=== PATIENT | female | born 1935 | race Caucasian/White ===

== ENCOUNTER 2018-10-16 08:35 | Observation (INO) | payer MEDICARE ==
--- NOTE | 2018-10-16 09:20 | ED ---
General Adult HPI - General Chief complaint: Shortness of Breath Stated complaint: Lung infection Time Seen by Provider: 10/16/18 08:45 Source: patient, RN notes reviewed Mode of arrival: ambulatory Limitations: no limitations - History of Present Illness Initial comments: This is an 83-year-old female presents emergency Department complaining of difficulty breathing since April. Patient states she lives in [place] and can't get any testing done because she has no insurance there. Patient states she came here today to see if we can figure out what was going on with her. Patient states she does not have a primary medical care doctor. Patient states his shortness of breath is worse with exertion. Patient states she has been having some chest pain lately as well. Patient states it doesn't always happen but takes for at least 30 seconds to come to recuperate when this occurs. Patient states she does get some chest squeezing at times when this happens. Patient denies any lightheadedness or dizziness. Patient denies any swelling in her feet or calf tenderness. Patient denies any recent fever chills or cough. Patient states she's recently been on 2 different antibiotics over the last few months. - Related Data Home Medications Medication Instructions Recorded Confirmed Salbutamol 100mcg 1 - 2 puff INHALATION RT-DAILY PRN 10/16/18 10/16/18 Allergies Allergy/AdvReac Type Severity Reaction Status Date / Time meperidine [From Demerol] Allergy Vomiting Verified 10/16/18 09:21 omeprazole Allergy Nausea & Verified 10/16/18 09:21 Vomiting oxycodone Allergy Vomiting Verified 10/16/18 09:21 Review of Systems ROS Statement: Those systems with pertinent positive or pertinent negative responses have been documented in the HPI. ROS Other: All systems not noted in ROS Statement are negative. Past Medical History Past Medical History: Atrial Fibrillation, Hypertension History of Any Multi-Drug Resistant Organisms: None Reported Past Surgical History: Back Surgery, Hernia Repair, Hysterectomy, Orthopedic Surgery Additional Past Surgical History / Comment(s): Eye Past Psychological History: No Psychological Hx Reported Smoking Status: Never smoker Past Alcohol Use History: None Reported Past Drug Use History: None Reported General Exam - General Exam Comments Initial Comments: GENERAL: Patient is well-developed and well-nourished. Patient is nontoxic and well- hydrated and is in no acute distress. ENT: Neck is soft and supple. No significant lymphadenopathy is noted. Oropharynx is clear. Moist mucous membranes. Neck has full range of motion without eliciting any pain. EYES: The sclera were anicteric and conjunctiva were pink and moist. Extraocular movements were intact and pupils were equal round and reactive to light. Eyelids were unremarkable. PULMONARY: Unlabored respirations. Good breath sounds bilaterally. No audible rales rhonchi or wheezing was noted. CARDIOVASCULAR: There is a regular rate and rhythm without any murmurs gallops or rubs. ABDOMEN: Soft and nontender with normal bowel sounds. No palpable organomegaly was noted. There is no palpable pulsatile mass. SKIN: Skin is clear with no lesions or rashes and otherwise unremarkable. NEUROLOGIC: Patient is alert and oriented x3. Cranial nerves II through XII are grossly intact. Motor and sensory are also intact. Normal speech, volume and content. Symmetrical smile. MUSCULOSKELETAL: Normal extremities with adequate strength and full range of motion. No lower extremity swelling or edema. No calf tenderness. LYMPHATICS: No significant lymphadenopathy is noted PSYCHIATRIC: Normal psychiatric evaluation. Limitations: no limitations Course Vital Signs 10/16/18 10/16/18 10/16/18 08:46 09:30 10:00 Temperature 97.9 F Pulse Rate 82 64 64 Respiratory 20 20 22 Rate Blood Pressure 143/73 148/69 154/72 O2 Sat by Pulse 96 94 L 96 Oximetry 10/16/18 10/16/18 10/16/18 10:30 11:00 11:30 Temperature Pulse Rate 54 L 59 L Respiratory 18 16 Rate Blood Pressure 138/63 131/66 127/64 O2 Sat by Pulse 94 L 94 L Oximetry Medical Decision Making - Medical Decision Making EKG shows sinus rhythm at [address] interval is 270 QRS 76 QT interval 418 QTC is 438. Patient's EKG shows no ST segment elevation or depression or T wave abnormalities are noted. Chest x-ray shows a large retail hernia. CT of the chest also shows an extremely large hiatal hernia no pulmonary embolism noted I spoke with some physicians a agreed to admit the patient admitted the patient wrote admitting orders and consult cardiology - Lab Data Result diagrams: 10/16/18 09:07 10/16/18 09:07 Lab Results 10/16/18 10/16/18 10/16/18 Range/Units 09:07 09:07 09:07 WBC 7.7 (3.8-10.6) k/uL RBC 5.03 (3.80-5.40) m/uL Hgb 14.4 (11.4-16.0) gm/dL Hct 44.7 (34.0-46.0) % MCV 88.9 (80.0-100.0) fL MCH 28.6 (25.0-35.0) pg MCHC 32.1 (31.0-37.0) g/dL RDW 14.4 (11.5-15.5) % Plt Count 266 (150-450) k/uL Neutrophils % 57 % Lymphocytes % 27 % Monocytes % 7 % Eosinophils % 5 % Basophils % 1 % Neutrophils # 4.4 (1.3-7.7) k/uL Lymphocytes # 2.1 (1.0-4.8) k/uL Monocytes # 0.6 (0-1.0) k/uL Eosinophils # 0.4 (0-0.7) k/uL Basophils # 0.1 (0-0.2) k/uL PT 11.1 (9.0-12.0) sec INR 1.1 (<1.2) APTT 24.8 (22.0-30.0) sec D-Dimer 1.11 H (<0.60) mg/L FEU Sodium 143 (137-145) mmol/L Potassium 4.5 (3.5-5.1) mmol/L Chloride 111 H (98-107) mmol/L Carbon Dioxide 25 (22-30) mmol/L Anion Gap 7 mmol/L BUN 17 (7-17) mg/dL Creatinine 0.62 (0.52-1.04) mg/dL Est GFR (CKD-EPI)AfAm >90 (>60 ml/min/1.73 sqM) Est GFR (CKD-EPI)NonAf 84 (>60 ml/min/1.73 sqM) Glucose 85 (74-99) mg/dL Calcium 9.5 (8.4-10.2) mg/dL Magnesium 1.9 (1.6-2.3) mg/dL Total Bilirubin 0.8 (0.2-1.3) mg/dL AST 30 (14-36) U/L ALT 16 (9-52) U/L Alkaline Phosphatase 76 (38-126) U/L Troponin I (0.000-0.034) ng/mL NT-Pro-B Natriuret Pep pg/mL Total Protein 6.8 (6.3-8.2) g/dL Albumin 3.8 (3.5-5.0) g/dL 10/16/18 10/16/18 Range/Units 09:07 09:07 WBC (3.8-10.6) k/uL RBC (3.80-5.40) m/uL Hgb (11.4-16.0) gm/dL Hct (34.0-46.0) % MCV (80.0-100.0) fL MCH (25.0-35.0) pg MCHC (31.0-37.0) g/dL RDW (11.5-15.5) % Plt Count (150-450) k/uL Neutrophils % % Lymphocytes % % Monocytes % % Eosinophils % % Basophils % % Neutrophils # (1.3-7.7) k/uL Lymphocytes # (1.0-4.8) k/uL Monocytes # (0-1.0) k/uL Eosinophils # (0-0.7) k/uL Basophils # (0-0.2) k/uL PT (9.0-12.0) sec INR (<1.2) APTT (22.0-30.0) sec D-Dimer (<0.60) mg/L FEU Sodium (137-145) mmol/L Potassium (3.5-5.1) mmol/L Chloride (98-107) mmol/L Carbon Dioxide (22-30) mmol/L Anion Gap mmol/L BUN (7-17) mg/dL Creatinine (0.52-1.04) mg/dL Est GFR (CKD-EPI)AfAm (>60 ml/min/1.73 sqM) Est GFR (CKD-EPI)NonAf (>60 ml/min/1.73 sqM) Glucose (74-99) mg/dL Calcium (8.4-10.2) mg/dL Magnesium (1.6-2.3) mg/dL Total Bilirubin (0.2-1.3) mg/dL AST (14-36) U/L ALT (9-52) U/L Alkaline Phosphatase (38-126) U/L Troponin I <0.012 (0.000-0.034) ng/mL NT-Pro-B Natriuret Pep 802 pg/mL Total Protein (6.3-8.2) g/dL Albumin (3.5-5.0) g/dL Disposition Clinical Impression: Chest pain, Dyspnea, Hiatal hernia Disposition: ADMITTED IP TO THIS [facility] Time of Disposition: 12:40
[2018-10-16] MEDS ORDERED: ASPIRIN 81 MG PO STA (09:31)
[2018-10-16] MEDS ORDERED: NITROGLYCERIN OINT 1 INCH/GM PACKET TOPICAL STA (09:31)
[2018-10-16 09:40] LABS: Basophils # (A) 0.1 k/uL (0-0.2); Basophils % (A) 1 %; Eosinophils # (A) 0.4 k/uL (0-0.7); Eosinophils % (A) 5 %; HCT 44.7 % (34.0-46.0); HGB 14.4 gm/dL (11.4-16.0); Lymphocytes # (A) 2.1 k/uL (1.0-4.8); Lymphocytes % (A) 27 %; MCH 28.6 pg (25.0-35.0); MCHC 32.1 g/dL (31.0-37.0); MCV 88.9 fL (80.0-100.0); Mean Platelet Volume 7.8; Monocytes # (A) 0.6 k/uL (0-1.0); Monocytes % (A) 7 %; Neutrophils # (A) 4.4 k/uL (1.3-7.7); Neutrophils % (A) 57 %; Platelet Count 266 k/uL (150-450); RBC 5.03 m/uL (3.80-5.40); RDW 14.4 % (11.5-15.5); WBC 7.7 k/uL (3.8-10.6)
[2018-10-16 09:53] LABS: ALT 16 U/L (9-52); AST 30 U/L (14-36); Albumin 3.8 g/dL (3.5-5.0); Alkaline Phosphatase 76 U/L (38-126); Anion Gap 7 mmol/L; Blood Urea Nitrogen 17 mg/dL (7-17); Calcium 9.5 mg/dL (8.4-10.2); Carbon Dioxide 25 mmol/L (22-30); Chloride 111 mmol/L (98-107); Glucose 85 mg/dL (74-99); Magnesium 1.9 mg/dL (1.6-2.3); Potassium 4.5 mmol/L (3.5-5.1); Sodium 143 mmol/L (137-145); Total Bilirubin 0.8 mg/dL (0.2-1.3); Total Protein 6.8 g/dL (6.3-8.2)
--- NOTE | 2018-10-16 09:53 | XR ---
EXAMINATION TYPE: XR chest 2V DATE OF EXAM: 10/16/2018 COMPARISON: None HISTORY: 83-year-old female difficulty breathing, productive cough TECHNIQUE: AP and lateral views FINDINGS: Heart mildly enlarged. Mild diffuse interstitial prominence is chronic. Focal eventration of the left hemidiaphragm extending up to the midlung level. Mild patchy right basilar density. Prior rotator cu ff repair on the right with evidence of a re-tear. Large osseous fragment in the axillary recess jv uring up to 2.5 cm. IMPRESSION: 1. Mild cardiomegaly. 2. Large area of focal eventration involving the left hemidiaphragm reaching up to the mid lung level . 3. Mild interstitial prominence may in part be chronic. Correlate for possible bronchitis or asthma. 4. Mild patchy density at the right base, probably atelectasis.
[2018-10-16 09:55] LABS: INR 1.1 (<1.2); Partial Thromboplastin Time 24.8 sec (22.0-30.0); Prothrombin Time 11.1 sec (9.0-12.0)
[2018-10-16 10:02] LABS: D-Dimer 1.11 mg/L FEU (<0.60)
--- NOTE | 2018-10-16 11:56 | CT ---
EXAMINATION TYPE: CT chest angio for PE DATE OF EXAM: 10/16/2018 COMPARISON: Radiograph same day HISTORY: 83-year-old female Left sided chest pain with shortness of breath TECHNIQUE: Contiguous axial scanning of the chest performed with IV Contrast, patient injected with 1 00 mL of Isovue 300. Coronal/sagittal MIP reconstructions performed. CT DLP: 541.8 mGycm Automated exposure control for dose reduction was used. FINDINGS: Heart normal size without pericardial effusion. No flattening of the interventricular septum or reflu x of contrast into the hepatic veins. Ectatic ascending aorta 3.7 cm with conventional arch vessel branching anatomy. Mildly enlarged caliber to the main right and left pulmonary arteries are 2.6 and 2.5 cm, respectivel y, suggesting possible underlying pulmonary artery hypertension. There are diffuse breathing motion artifacts limiting assessment. No large central or lobar pulmonary embolus is seen. Many of the segmental and more distal arterial branches are very limited due to the motion artifacts. No thoracic lymphadenopathy by CT size criteria. Volume loss at the left base secondary to a very large hiatal hernia containing the entire stomach wh ich demonstrates an organoaxial orientation. No abnormal wall thickening, pneumatosis, or free air. L arge amount of intra-abdominal fat as well as the pancreatic body and tail, splenic artery, and splen ic vein are also included in the hernia. The hernia sac measures up to 18.7 cm wide by 14.7 cm AP by 11.5 cm craniocaudal. Incidentally, there is a replaced right hepatic vein from the SMA. Calcified granulomas in the spleen . Faceted gallstones measuring up to 1.4 cm. Remainder of the lungs shows some minimal strandy atelectasis at the right base. No other consolidati on or pleural effusion. There seems to be some moderate circumferential wall thickening of the distal esophagus. Bones: Advanced degenerative changes of both shoulders. Moderate degenerative disc disease mid to low er thoracic spine. IMPRESSION: 1. VOLUME LOSS AT THE LEFT BASE SECONDARY TO A VERY LARGE HIATAL HERNIA CONTAINING THE ENTIRE STOMACH , INTRA-ABDOMINAL FAT, PORTIONS OF THE PANCREATIC BODY, PANCREATIC TAIL, WELL THE SPLENIC ARTER Y/VEIN. THE HERNIA SAC MEASURES UP TO 18.7 CM. 2. ORGANOAXIAL POSITIONING OF THE STOMACH WITHOUT VOLVULUS OR INFLAMMATORY CHANGES. 3. MODERATE CIRCUMFERENTIAL WALL THICKENING OF THE LOWER ESOPHAGUS COULD REPRESENT ESOPHAGITIS. CORRE LATE WITH PATIENT'S SYMPTOMS TO DETERMINE THE NEED FOR DIRECT VISUALIZATION. 4. POSSIBLE UNDERLYING PULMONARY ARTERIAL HYPERTENSION. ALSO, CHOLELITHIASIS AND PRIOR GRANULOMATOUS DISEASE.
[2018-10-16] MEDS ORDERED: NITROGLYCERIN SL TABS 0.4 MG TAB SUBLINGUAL PRN (12:42)
[2018-10-16 14:26] VITALS: BMI 35.5
[2018-10-16] MEDS ORDERED: NALOXONE 0.4 MG/ML 1 ML VIAL IV PRN (19:19)
[2018-10-16] MEDS ORDERED: HYDROcodone/APAP 5-325MG 1 EACH TAB PO PRN (19:19)
[2018-10-16] MEDS ORDERED: MORPHINE SULFATE 2 MG/ML SYRINGE IV PRN (19:19)
[2018-10-16] MEDS ORDERED: ACETAMINOPHEN TAB 325 MG TAB PO PRN (19:19)
[2018-10-16] MEDS: NITROGLYCERIN OINT 1 INCH/GM PACKET TOPICAL SCH ×2 (19:51→22:07)
--- NOTE | 2018-10-16 20:16 | P.HPIM ---
History of Present Illness H&P Date: 10/16/18 Chief Complaint: Chest pain, shortness of breath 83 year old F with PMH of Atrial fibrillation presents to the ED for chest pain and shortness of breath. Patient reports shortness of breath that has been worsening since May. Patient reports going to the ED in [facility] for chest pain, and she was told that this wasn't related to her heart. Pain is right sided, 7/10 in severity. Pain is described as sharp and stabbing. Patient also reports cough productive of green-yellow sputum that has been ongoing for the past 2 months. She has tried a trial of antibiotics in the outpatient setting, temporarily alleviating her symptoms but her cough has returned. Patient states shortness of breath is worse with changes in position. She denies headache, lower extremity edema, nausea or vomiting, fever or chills, palpitations, changes in urination or bowel habits. Patient also reports history of hiatal hernia, was told it was inoperable in the past. In the ED, Troponin was negative x 2. D Dimer was elevated, CTA ruled out PE. CTA did however reveal a large hiatal hernia involving the entire stomach and parts of her pancreas. Patient is admitted for chest pain, Cardiology on consult. Review of Systems All positive review of systems is seen in the H&P. All other ROS was reviewed and is negative. 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 History of Any Multi-Drug Resistant Organisms: None Reported Past Surgical History: Back Surgery, Hernia Repair, Hysterectomy, Joint Replacement, Orthopedic Surgery Additional Past Surgical History / Comment(s): MAGAN/cardioversion, low back surgery in 1967 and 1968, abdominal hernia repairs (4 surgeried for a total of 7 abdominal hernias), bilateral cataract removal/lens implants, bilateral feet hammer toes (3 of them), R rotator cuff surgery twice and L rotator cuff surgery once, bilateral total knee arthroplasties. Additional Past Anesthesia/Blood Transfusion Reaction / Comment(s): Pt has had hypothermia with surgery. Smoking Status: Never smoker - Past Family History Father Family Medical History: Cancer Additional Family Medical History / Comment(s): Father had prostate/liver cancer. Mother Family Medical History: Dementia Additional Family Medical History / Comment(s): Mother lived to be 94 yrs old. Medications and Allergies Home Medications Medication Instructions Recorded Confirmed Type Salbutamol 100mcg 1 - 2 puff INHALATION RT-DAILY PRN 10/16/18 10/16/18 History Allergies Allergy/AdvReac Type Severity Reaction Status Date / Time meperidine [From Demerol] Allergy Vomiting Verified 10/16/18 09:21 omeprazole Allergy Nausea & Verified 10/16/18 09:21 Vomiting oxycodone Allergy Vomiting Verified 10/16/18 09:21 Physical Exam Vitals: Vital Signs Temp Pulse Resp BP Pulse Ox 10/16/18 18:30 65 19 170/99 93 L 10/16/18 18:00 77 19 162/74 95 10/16/18 17:30 66 16 159/70 94 L 10/16/18 17:00 64 13 147/69 96 10/16/18 16:30 68 16 140/67 10/16/18 16:00 63 18 124/66 94 L 10/16/18 15:30 64 17 132/67 94 L 10/16/18 15:00 65 20 147/73 94 L 10/16/18 14:30 62 16 142/67 95 10/16/18 14:00 61 19 167/68 95 10/16/18 13:30 63 20 148/65 95 10/16/18 13:00 58 L 15 163/78 94 L 10/16/18 12:30 58 L 18 140/67 97 10/16/18 12:00 60 15 127/64 96 10/16/18 11:30 127/64 10/16/18 11:00 59 L 16 131/66 94 L 10/16/18 10:30 54 L 18 138/63 94 L 10/16/18 10:00 64 22 154/72 96 10/16/18 09:30 64 20 148/69 94 L 10/16/18 08:46 97.9 F 82 20 143/73 96 Intake and Output 10/16/18 10/16/18 10/16/18 06:59 14:59 22:59 Other: Weight 99.79 kg General: [non toxic], [no distress], [appears at stated age] Derm: [warm], [dry] Head: [atraumatic], [normocephalic], [symmetric] Eyes: [EOMI], [no lid lag], [anicteric sclera] Mouth: [no lip lesion], [mucus membranes moist] Cardiovascular: [S1S2 reg], [no murmur], [positive DP pulse bilateral] Lungs: [Decreased breath sounds bilateral], [no rales or ronchi], [no accessory muscle use] Abdominal: [soft], [ nontender to palpation], [no guarding], [no appreciable organomegaly] Ext: [no gross muscle atrophy], [no edema], [no contractures] Neuro: [no focal neuro deficits] Psych: [Alert], [oriented], [appropriate affect] Results CBC & Chem 7: 10/16/18 09:07 10/16/18 09:07 Labs: Abnormal Lab Results - Last 24 Hours (Table) 10/16/18 10/16/18 Range/Units 09:07 09:07 D-Dimer 1.11 H (<0.60) mg/L FEU Chloride 111 H (98-107) mmol/L Thrombosis Risk Factor Assmnt - Choose All That Apply Any of the Below Risk Factors Present?: Yes Each Factor Represents 1 point: Obesity (BMI >25) Other Risk Factors: Yes Each Risk Factor Represents 3 Points: Age 75 years or older Other congenital or acquired thrombophilia - If yes, enter type in comment: No Thrombosis Risk Factor Assessment Total Risk Factor Score: 4 Thrombosis Risk Factor Assessment Level: Moderate Risk Assessment and Plan Assessment: Assessment and Plan Chest pain likely related to large hiatal hernia Hiatal hernia Atrial fibrillation Elevated D Dimer Troponin < 0.012 x 2 with EKG showing sinus rhythm with 1st degree AV block. CXR shows large focal eventration involving the left hemidiaphragm with mild interstitial prominence. Elevated D-Dimer, CTA rules out PE. CTA showed large hiatal hernia containing entire stomach and parts of the pancreas, esophagitis and possible cholelithiasis and/or granulomatous disease. Plan: Trend Trop/EKG to rule out ACS. Follow Cardiology recommendations. Follow Echocardiogram. Telemetry monitoring. Follow lipid panel. Seen on CTA. Plan: Protonix by mouth. Follow CT surgery recommendations. Currently rate controlled: Telemetry monitoring. Keep K > 4 and Mg > 2. Follow Echocardiogram and Cardiology consult. Elevated D-Dimer, but CTA negative for PE. Plan: Continue to monitor. Patient admitted for chest pain. Cardiology consulted. Consult CT surgery for large hiatal hernia. Patient is full CODE.
[2018-10-16] MEDS: HEPARIN SODIUM,PORCINE 5,000 UNIT/ML 1 ML VIAL SQ SCH (22:05)
[2018-10-17] MEDS: NITROGLYCERIN OINT 1 INCH/GM PACKET TOPICAL SCH ×4 (05:30→23:37)
[2018-10-17 08:43] LABS: Cholesterol 155 mg/dL (<200); HDL Cholesterol 41 mg/dL (40-60); LDL Cholesterol,Calculated 98 mg/dL (0-99); Triglycerides 81 mg/dL (<150)
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
--- NOTE | 2018-10-17 12:00 | ECHOF ---
Referral Reason:SOB MEASUREMENTS -------- HEIGHT: 167.6 cm WEIGHT: 99.8 kg BP: 155/67 RVIDd: 2.8 cm (< 3.3) IVSd: 1.1 cm (0.6 - 1.1) LVIDd: 3.3 cm (3.9 - 5.3) LVPWd: 1.2 cm (0.6 - 1.1) IVSs: 1.5 cm LVIDs: 2.2 cm LVPWs: 1.6 cm LA Diam: 2.7 cm (2.7 - 3.8) LAESV Index (A-L): 28.07 ml/m Ao Diam: 3.3 cm (2.0 - 3.7) AV Cusp: 2.2 cm (1.5 - 2.6) EPSS: 0.3 cm MV E Sharif: 0.89 m/s MV DecT: 217 ms MV A Sharif: 0.82 m/s MV E/A Ratio: 1.08 AR PHT: 875 ms RAP: 5.00 mmHg RVSP: 42.08 mmHg MV EF SLOPE: 114.49 mm/s (70 - 150) MV EXCURSION: 1.73 cm (> 18.000) FINDINGS -------- Sinus rhythm. This was a technically adequate study. The left ventricular size is normal. There is borderline concentric left ventricular hypertrophy. Overall left ventricular systolic function is normal with, an EF between 60 - 65 %. The right ventricle is normal in size. Normal LA size by volume 22+/-6 ml/m2. The right atrium is normal in size. Interatrial and interventricular septum intact. There is mild aortic valve sclerosis. The mitral valve leaflets are mildly thickened. There is trace mitral regurgitation. Moderate tricuspid regurgitation present. There is mild pulmonary hypertension. The right ventric ular systolic pressure, as measured by Doppler, is 42.08mmHg. Trace/mild (physiologic) pulmonic regurgitation. The aortic root size is normal. Normal inferior vena cava with normal inspiratory collapse consistent with estimated right atrial pre ssure of 5 mmHg. There is no pericardial effusion. CONCLUSIONS -------- 1. Sinus rhythm. 2. This was a technically adequate study. 3. The left ventricular size is normal. 4. There is borderline concentric left ventricular hypertrophy. 5. Overall left ventricular systolic function is normal with, an EF between 60 - 65 %. 6. The right ventricle is normal in size. 7. Normal LA size by volume 22+/-6 ml/m2. 8. The right atrium is normal in size. 9. Interatrial and interventricular septum intact. 10. There is mild aortic valve sclerosis. 11. The mitral valve leaflets are mildly thickened. 12. There is trace mitral regurgitation. 13. Moderate tricuspid regurgitation present. 14. There is mild pulmonary hypertension. 15. The right ventricular systolic pressure, as measured by Doppler, is 42.08mmHg. 16. Trace/mild (physiologic) pulmonic regurgitation. 17. The aortic root size is normal. 18. Normal inferior vena cava with normal inspiratory collapse consistent with estimated right atrial pressure of 5 mmHg. 19. There is no pericardial effusion. SHOW HOST OR HOSTESS: CLAUDIA Nunez
--- NOTE | 2018-10-17 13:08 | P.PN ---
Subjective Progress Note Date: 10/17/18 Principal diagnosis: Shortness of breath Patient was seen and examined. No acute events overnight. Seen eating breakfast comfortably. No changes in her condition since yesterday. Objective - Vital Signs Vital signs: Vital Signs Temp 98.1 F 10/17/18 11:40 Pulse 60 10/17/18 11:40 Resp 18 10/17/18 11:40 BP 136/73 10/17/18 11:40 Pulse Ox 94 L 10/17/18 11:40 Intake & Output 10/16/18 10/17/18 10/17/18 18:59 06:59 18:59 Weight 99.79 kg Other: Voiding Method Toilet Toilet - Exam General: [non toxic], [no distress], [appears at stated age] Derm: [warm], [dry] Head: [atraumatic], [normocephalic], [symmetric] Eyes: [EOMI], [no lid lag], [anicteric sclera] Mouth: [no lip lesion], [mucus membranes moist] Cardiovascular: [S1S2 reg], [no murmur], [positive DP pulse bilateral] Lungs: [Decreased breath sounds bilateral], [no rales or ronchi], [no accessory muscle use] Abdominal: [soft], [ nontender to palpation], [no guarding], [no appreciable organomegaly] Ext: [no gross muscle atrophy], [no edema], [no contractures] Neuro: [no focal neuro deficits] Psych: [Alert], [oriented], [appropriate affect] - Labs CBC & Chem 7: 10/16/18 09:07 10/16/18 09:07 Labs: Microbiology - Last 24 Hours (Table) 10/16/18 09:07 Blood Culture - Preliminary Blood No Growth after 24 hours Assessment and Plan Assessment: Assessment and Plan Chest pain likely related to large hiatal hernia Hiatal hernia Atrial fibrillation Elevated D Dimer Troponin < 0.012 x 3 with EKG showing sinus rhythm with 1st degree AV block, ACS ruled out. CXR shows large focal eventration involving the left hemidiaphragm with mild interstitial prominence. Elevated D-Dimer, CTA rules out PE. CTA showed large hiatal hernia containing entire stomach and parts of the pancreas, esophagitis and possible cholelithiasis and/or granulomatous disease. Echo shows ED 60-65% with mild LVH. Plan: Follow Cardiology recommendations. Telemetry monitoring. Seen on CTA. Plan: Protonix by mouth. Follow CT surgery recommendations Currently rate controlled: Telemetry monitoring. Keep K > 4 and Mg > 2. Follow Cardiology consult. Elevated D-Dimer, but CTA negative for PE. Plan: Continue to monitor. Patient admitted for chest pain, ACS ruled out. Consult CT surgery for large hiatal hernia, DC planning based on recommendations.
[2018-10-17] MEDS: PANTOPRAZOLE 40 MG TABLET PO SCH (13:33)
[2018-10-17] MEDS: ASPIRIN 325 MG TAB PO SCH (13:33)
[2018-10-17] MEDS: HEPARIN SODIUM,PORCINE 5,000 UNIT/ML 1 ML VIAL SQ SCH ×2 (13:33→20:25)
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
[2018-10-18] MEDS: NITROGLYCERIN OINT 1 INCH/GM PACKET TOPICAL SCH ×2 (05:33→11:03)
[2018-10-18 07:35] VITALS: RESP 18; TEMP 97.5
[2018-10-18] MEDS: HEPARIN SODIUM,PORCINE 5,000 UNIT/ML 1 ML VIAL SQ SCH (09:28)
[2018-10-18] MEDS: PANTOPRAZOLE 40 MG TABLET PO SCH (09:28)
[2018-10-18] MEDS: ASPIRIN 325 MG TAB PO SCH (09:29)
[2018-10-18 11:33] VITALS: BP 136/76; PULSE 59
--- NOTE | 2018-10-18 12:28 | CONS ---
CONSULTATION PULMONARY CRITICAL CARE CONSULTATION: DATE OF SERVICE: 10/18/2018 This is an 84-year-old female who I am asked to see. She is currently residing in the OBS unit at the hospital. She currently is [place] citizen, but she lives with her daughter in [place]. She comes into the emergency department complaining of a difficulty breathing since April. The patient states that she does have sinus drainage and sinus cough. She denies a history of any lung issues. Specifically, she denies asthma, emphysema and chronic bronchitis. She is a lifelong nonsmoker. She apparently seen by a number doctors here and was found to have a large paraesophageal hernia and Dr. Nguyen who I spoke to about this patient with like me to evaluate her as an outpatient to make sure that she is tuned up and ready for a repair. She does cough occasionally. She does not produce any phlegm. She states that she short of breath primarily with exertion but sometimes also when she is lying flat. Denies any fever or chills. The patient typically does not cough up much or any phlegm. No chest pain or chest discomfort. Chest x-rays and CT scans are reviewed. HOME MEDICATIONS: Include salbutamol 1-2 puffs daily. She is on no other medications. ALLERGIES: Include DEMEROL, OMEPRAZOLE, OXYCODONE. PAST MEDICAL HISTORY: Apparently positive for hypertension and atrial fibrillation, although she appears not to be treated for either. SURGICAL HISTORY: Includes back surgery, hernia repair, hysterectomy, and orthopedic procedures. She is a lifelong nonsmoker. SOCIAL HISTORY: Unremarkable as she is not a drinker and does not use any illicit drugs. There is no noted family history here. Actually, she appears to be very healthy for somebody who is 83. REVIEW OF SYSTEMS: CONSTITUTIONAL: Negative. NEUROLOGIC: Negative. HEENT: Negative. CARDIOVASCULAR: Negative. PULMONARY: Occasional cough without much phlegm or any phlegm and mild shortness of breath. GI: Large paraesophageal hernia, likely causing her complaints. : Negative. RHEUMATOLOGIC: Negative. IMMUNOLOGIC: Negative. ENDOCRINOLOGIC: Negative. DERMATOLOGIC: Negative. Current vital signs are reviewed. Her temperature is 97.5, heart rate 63, respiratory rate 18, blood pressure 165/91 mean 115, room air saturation 95%. Appears in no acute distress. No respiratory distress. No conversational dyspnea. No audible wheezing or use of accessory muscles. HEENT: Examination is grossly unremarkable. NECK: Supple. Full range of motion. No adenopathy. Neck veins are flat. CARDIOVASCULAR: Examination reveals regular rhythm and rate. Heart rate 63. S1, S2 normal. There is no murmur. LUNGS: Reveal clear breath sounds. No wheezes, rhonchi, or crackles. ABDOMEN: Soft. Bowel sounds are heard. EXTREMITIES: Intact. No cyanosis, clubbing, or edema. SKIN: Without rash. NEUROLOGIC: Examination is brief but nonfocal. LABS: Reviewed. White count 7.7, hemoglobin 14.4, hematocrit 44.7, platelet count normal. PT, INR, PTT normal. D-dimer 1.11. Sodium 143, potassium 4.5, chloride 111, CO2 is 25, anion gap is 7, BUN and creatinine were 17 and 0.62. The rest of the labs look okay. Troponin was negative. The patient had a chest x-ray. It shows a large hiatal hernia. There is some atelectasis at the right lung base. There is mild cardiomegaly. A CT angiogram was done. It shows volume loss at the left lung base secondary to a very large hiatal hernia containing almost the entire stomach. There is organoaxial position of the stomach without volvulus or inflammatory changes. There is thickening of the distal wall of the esophagus which could relate to esophagitis. The rest of the changes are noted. ASSESSMENT: 1. Large paraesophageal hernia, which would require surgical intervention. 2. Rule out intrinsic pulmonary disease although the patient is a lifelong nonsmoker. Her mild cough and shortness of breath could relate to sinus disease or allergies and/or complications from her hiatal hernia. 3. Lifelong nontobacco use. 4. History of atrial fibrillation. 5. History of hypertension. PLAN: The patient will follow up with me in the office. At that time she will have complete pulmonary function test. Additional recommendations and suggestions are forthcoming. Dr. Nguyen and I spoke about this patient. We want to make sure the patient is devoid of any intrinsic pulmonary disease or if she does have intrinsic pulmonary disease history to properly before surgery and pulmonary function test will also provide a preop assessment of patient's risk for surgery. MMODL / IJN: [id number] /
--- NOTE | 2018-10-18 13:14 | P.DS ---
Providers Date of admission: 10/16/18 12:42 Expected date of discharge: 10/18/18 Attending physician: Swetha Cartagena DO Consults: 10/16/18 12:42 Consult Physician Urgent Consulting Provider: [facility] Consult Reason/Comments: Chest pain Do you want consulting provider notified?: Yes 10/16/18 20:13 Consult Physician Urgent Consulting Provider: Noé Nguyen Consult Reason/Comments: Large hiatal hernia into the cardiothoracic cavity Do you want consulting provider notified?: Yes 10/17/18 13:40 Consult Physician Routine Consulting Provider: Saman Broderick Consult Reason/Comments: Pulmoanry workup Do you want consulting provider notified?: Yes Primary care physician: Stated None Hospital Course: 83 year old F with PMH of Atrial fibrillation presents to the ED for chest pain and shortness of breath. Patient reports shortness of breath that has been worsening since May. Patient reports going to the ED in [facility] for chest pain, and she was told that this wasn't related to her heart. Pain is right sided, 7/10 in severity. Pain is described as sharp and stabbing. Patient also reports cough productive of green-yellow sputum that has been ongoing for the past 2 months. She has tried a trial of antibiotics in the outpatient setting, temporarily alleviating her symptoms but her cough has returned. Patient states shortness of breath is worse with changes in position. She denies headache, lower extremity edema, nausea or vomiting, fever or chills, palpitations, changes in urination or bowel habits. Patient also reports history of hiatal hernia, was told it was inoperable in the past. In the ED, Troponin was negative x 2. D Dimer was elevated, CTA ruled out PE. CTA did however reveal a large hiatal hernia involving the entire stomach and parts of her pancreas. Patient is admitted for chest pain, Cardiology on consult. Troponin was less than 0.0123 with EKG showing sinus rhythm with first degree AV block, ACS was ruled out. Cardiology was consulted and recommended echocardiogram which showed EF 60-65% with mild LVH. CTA of the chest showed a large hiatal hernia containing entire stomach content and parts of the pancreas. Cardiothoracic surgery was consulted and recommended outpatient follow-up in order to schedule for surgery. Pulmonology was consulted for medical clearance and also recommended outpatient follow-up. Patient was seen and examined prior to discharge. No acute events overnight. Patient reports no significant changes in her condition since admission. She is excited to see Dr. Broderick in the outpatient setting to get clearance for cardiothoracic surgery. She denies any chest pain or palpitations. No nausea or vomiting. No fever or chills. General: [non toxic], [no distress], [appears at stated age] Derm: [warm], [dry] Head: [atraumatic], [normocephalic], [symmetric] Eyes: [EOMI], [no lid lag], [anicteric sclera] Mouth: [no lip lesion], [mucus membranes moist] Cardiovascular: [S1S2 reg], [no murmur], [positive DP pulse bilateral] Lungs: [Decreased breath sounds bilateral], [no rales or ronchi], [no accessory muscle use] Abdominal: [soft], [ nontender to palpation], [no guarding], [no appreciable organomegaly] Ext: [no gross muscle atrophy], [no edema], [no contractures] Neuro: [no focal neuro deficits] Psych: [Alert], [oriented], [appropriate affect] Assessment and Plan Chest pain likely related to large hiatal hernia Hiatal hernia Atrial fibrillation Elevated D Dimer Troponin < 0.012 x 3 with EKG showing sinus rhythm with 1st degree AV block, ACS ruled out. CXR shows large focal eventration involving the left hemidiaphragm with mild interstitial prominence. Elevated D-Dimer, CTA rules out PE. CTA showed large hiatal hernia containing entire stomach and parts of the pancreas, esophagitis and possible cholelithiasis and/or granulomatous disease. Echo shows ED 60-65% with mild LVH. Plan: Follow Cardiology recommendations. Telemetry monitoring. Seen on CTA. CT surgery consulted, agreeable to surgery but needs planning in the outpatient setting. Pulmonology was consulted for pulmonary clearance, recommends outpatient follow-up for PFTs. Plan: Protonix by mouth. Currently rate controlled: Telemetry monitoring. Keep K > 4 and Mg > 2. Follow Cardiology consult. Elevated D-Dimer, but CTA negative for PE. Plan: Continue to monitor. Patient admitted for chest pain, ACS ruled out. To be discharged today with close follow-up with pulmonology and CT surgery. Pertinent Studies: Chest x-ray, chest CTA, echocardiogram Patient Condition at Discharge: Stable Plan - Discharge Summary Discharge Rx Participant: No New Discharge Prescriptions: New Omeprazole 40 mg PO DAILY #30 capsule. Pantoprazole [Protonix] 40 mg PO AC-BRKFST tablet. Discontinued Salbutamol 100mcg 1 - 2 puff INHALATION RT-DAILY PRN PRN Reason: Shortness Of Breath Discharge Medication List Omeprazole 40 mg PO DAILY #30 capsule. 10/18/18 [Rx] Pantoprazole [Protonix] 40 mg PO AC-BRKFST tablet. 10/18/18 [Rx] Follow up Appointment(s)/Referral(s): Noé Nguyen MD [STAFF PHYSICIAN] - 10/25/18 2:15 pm Saman Broderick DO [Doctor of Osteopathic Medicine] - 11/01/18 10:00 am None,Stated [Primary Care Provider] - 1-2 days Activity/Diet/Wound Care/Special Instructions: Diet: Low-salt, heart healthy Follow-up with PCP within 1-2 days of discharge. Follow-up with cardiothoracic surgery with the appointment given to you. Follow-up with pulmonology with the appointment given to you. Take all medications as advised. Discharge Disposition: HOME SELF-CARE
== END 2018-10-18 14:20 | disposition home or self-care (01) ==
LOC: EC 08:35 → 1SOBS 12:42
PROVIDERS: ADMIT Internal Medicine; ATTEND Internal Medicine
DX: R07.89 Other chest pain (principal); K44.9 Diaphragmatic hernia without obstruction or gangrene; I48.0 Paroxysmal atrial fibrillation; I11.9 Hypertensive heart disease without heart failure; K21.0 Gastro-esophageal reflux disease with esophagitis; I08.1 Rheumatic disorders of both mitral and tricuspid valves; J44.9 Chronic obstructive pulmonary disease, unspecified; I44.0 Atrioventricular block, first degree; R79.89 Other specified abnormal findings of blood chemistry; M54.5 Low back pain; G89.29 Other chronic pain; E66.9 Obesity, unspecified; Z68.35 Body mass index [BMI] 35.0-35.9, adult; M19.90 Unspecified osteoarthritis, unspecified site; H35.52 Pigmentary retinal dystrophy; Z79.899 Other long term (current) drug therapy; Z88.5 Allergy status to narcotic agent; Z88.8 Allergy status to other drugs, medicaments and biological substances; Z90.710 Acquired absence of both cervix and uterus; Z96.653 Presence of artificial knee joint, bilateral; Z98.42 Cataract extraction status, left eye; Z98.41 Cataract extraction status, right eye; Z96.1 Presence of intraocular lens; Z87.19 Personal history of other diseases of the digestive system; Z87.01 Personal history of pneumonia (recurrent); Z80.0 Family history of malignant neoplasm of digestive organs; Z80.42 Family history of malignant neoplasm of prostate; Z81.8 Family history of other mental and behavioral disorders
CPT/HCPCS: 96372 ×3; 99285; 36415; 94760 ×2; 94150; 93005; 93306; 85379; 83880; 80061; 80053; 83735; 84484; 85025; 85610; 85730; 87040; 71046; 71275; G0378 ×3; J1644 ×3; Q9967

== ENCOUNTER → 2018-10-25 | Outpatient (CLI) | payer MEDICARE | END | disposition home or self-care (01) | LOC: LABPAT 14:03 | PROVIDERS: ATTEND Thoracic Surgery (Cardiothoracic Vascular Surgery) | DX: Z01.812 Encounter for preprocedural laboratory examination (principal); K44.9 Diaphragmatic hernia without obstruction or gangrene | CPT/HCPCS: 36415; 86850; 86900; 86901 ==

== ENCOUNTER 2018-11-01 06:32 | Inpatient (IN) | payer MEDICARE ==
[~2018-11-01 06:32] MED LIST: DEXAMETHASONE SOD PHOSPHATE 10 MG/ML 1 ML VIAL IV ONE; HYDROmorphone 0.5 MG/0.5 ML SYRINGE IVP PRN; LACTATED RINGERS 1,000 ML IV SCH; LIDOCAINE 1% 20 ML VIAL (10MG/ML) FOR IV START INTRADERMA PRN; MIDAZOLAM 2 MG/2 ML VIAL IV PRN; ONDANSETRON 4 MG/2 ML VIAL IVP ONE; SCOPOLAMINE 1.5MG/72HR PATCH TRANSDERM ONE; ceFAZolin IN SWFI 2 GM/20 ML SYRINGE IVP ONE
[2018-11-01] MEDS ORDERED: LIDOCAINE 1% INJ 10MG/ML (20 ML MDV) ONE (06:55)
[2018-11-01] MEDS ORDERED: PROPOFOL 10 MG/ML 20 ML VIAL IV ONE (06:55)
[2018-11-01] MEDS ORDERED: fentaNYL (PF) 50 MCG/ML 2 ML AMP ONE (06:55)
[2018-11-01] MEDS ORDERED: CALCIUM CHLORIDE 100 MG/ML 10 ML SYRINGE ONE (06:55)
[2018-11-01] MEDS ORDERED: GLYCOPYRROLATE 0.2 MG/ML 2 ML VIAL ONE (06:55)
[2018-11-01] MEDS ORDERED: ROCURONIUM BROMIDE 10 MG/ML 10 ML VIAL IV ONE (06:55)
[2018-11-01] MEDS ORDERED: MIDAZOLAM 2 MG/2 ML VIAL ONE (06:55)
[2018-11-01] MEDS ORDERED: ePHEDrine SULFATE/0.9% NACL/PF 50 MG/5 ML SYRINGE IV ONE (06:55)
[2018-11-01] MEDS ORDERED: ALBUMIN HUMAN 5% (12.5gm) 250 ML BOTTLE IVPB ONE (06:55)
[2018-11-01] MEDS ORDERED: NEOSTIGMINE 1 MG/ML 10 ML VIAL ONE (06:55)
[2018-11-01] MEDS ORDERED: PHENYLEPHRINE-0.9% NACL SYG 1 MG/10 ML SYRINGE ONE (06:55)
[2018-11-01] MEDS ORDERED: POTASSIUM CHLORIDE 20 MEQ/100 ML BAG IVPB ONE (06:55)
[2018-11-01] MEDS ORDERED: NALOXONE 0.4 MG/ML 1 ML VIAL IV PRN (07:59)
[2018-11-01] MEDS ORDERED: ONDANSETRON 4 MG/2 ML VIAL IVP PRN ×2 (07:59→15:18)
[2018-11-01] MEDS ORDERED: NALBUPHINE 10 MG/ML (1 ML AMP) IV PRN (07:59)
[2018-11-01 10:43] LABS: ABG Base Excess -2.6 mmol/L; ABG HCO3 23 mmol/L (21-25); ABG Oxygen Saturation 99.5 % (94-97); ABG PCO2 39 mmHg (35-45); ABG PH 7.38 (7.35-7.45); ABG PO2 210 mmHg (83-108); ABG TCO2 24 mmol/L (19-24)
[2018-11-01 11:11] LABS: HCT 35.4 % (34.0-46.0); HGB 11.6 gm/dL (11.4-16.0); MCH 28.8 pg (25.0-35.0); MCHC 32.8 g/dL (31.0-37.0); MCV 87.6 fL (80.0-100.0); Mean Platelet Volume 8.9; Platelet Count 233 k/uL (150-450); RBC 4.04 m/uL (3.80-5.40); RDW 14.4 % (11.5-15.5)
[2018-11-01] MEDS ORDERED: LACTATED RINGERS 1,000 ML IV ONE ×5 (11:57→13:20)
[2018-11-01 12:57] LABS: African American GFR (CKD) >90 (>60 ml/min/1.73 sqM); Anion Gap 4 mmol/L; Blood Urea Nitrogen 12 mg/dL (7-17); Calcium 8.3 mg/dL (8.4-10.2); Carbon Dioxide 23 mmol/L (22-30); Chloride 112 mmol/L (98-107); Glucose 159 mg/dL (74-99); Potassium 3.8 mmol/L (3.5-5.1); Sodium 139 mmol/L (137-145)
[2018-11-01] MEDS: SODIUM CHLORIDE 0.9% EPIDURAL PRN ×2 (14:09→16:07)
[2018-11-01] MEDS: FENTANYL EPIDURAL PRN ×2 (14:09→16:07)
[2018-11-01] MEDS: ROPIVACAINE EPIDURAL PRN ×2 (14:09→16:07)
--- NOTE | 2018-11-01 14:29 | P.OP ---
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 Procedure(s) Performed: Laparotomy, repair of paraesophageal hernia, transhiatal esophagectomy, feeding jejunostomy Anesthesia: JANEL Surgeon: Noé Nguyen Thread Drawer #1: Rishi Ly Estimated Blood Loss (ml): 800 IV fluids (ml): 3,000 Urine output (ml): 500 Pathology: other (Hernia sac, portion of stomach, esophagus) Condition: stable Disposition: ICU Indications for Procedure: 83-year-old female presented with episodic respiratory distress, mild chest pain , early satiety found to have a large paraesophageal hernia with the entire stomach much of the omentum and a portion of the transverse colon all in the left chest. Pulmonary evaluation could reveal no underlying primary pulmonary disease it was felt her symptomatology was all related to her paraesophageal hernia. Elective surgery was recommended. Patient did note a history of gastroesophageal reflux disease, Burgos's esophagus and a history of lower esophageal ulceration. Operative Findings: The entire stomach portion of transverse colon and a large amount of omentum were somewhat incarcerated through the esophageal hiatus. We were able to reduce the colon in the omentum and a portion of the stomach without too much difficulty but there was a lot of dense adhesions of the proximal stomach which made reduction of it very difficult once reduced we did have good posterior diaphragmatic crura for our repair. On completion of the repair was recognized that the distal esophagus was very thinned out and actually had ruptured and the side of the NG tube was shooting through the distal esophagus. At this point distal esophagus was explored up into the chest and was noted to be extremely poor tissue. The esophageal mucosa was carreno and scarred in areas and very thinned out and others. The muscle layers of the distal esophagus was also very thinned out and in places essentially absent. On exploration of the neck much more normal-appearing esophagus was evident and this extended to the mid chest region. A viable gastric tube was created and was able to be brought up into the neck and a good 2 layer handsewn anastomosis was performed with testing without evidence of leak. Description of Procedure: The patient was brought to the operating room, placed supine on the operating table, anesthetized and intubated. Her abdomen and lower chest was sterilely prepped and draped. An upper midline incision was performed from adjacent to the xiphoid down to well above the umbilicus. This was carried down through skin and subcutaneous tissue to the midline fascia. The midline fascia was incised in opened and the abdominal cavity was entered. Her medium was opened Marshall distally. Falciform ligament was taken down. The left lateral lobe of the liver was mobilized and retracted through the right. The abdomen was explo red. There were some gallstones present. There were no other abnormal intra- abdominal masses. Gentle tension was used to reduce the hernia. Stomach would not completely reduce easily. We opened the lesser sac and began dissection along the greater curvature of the stomach. As we approached the short gastric vessels we ran into a lot of very dense scar tissue. Careful and tedious dissection was performed in order to free the cardia of the stomach from within the chest and reduce it and then reduce a normal intra-abdominal segment of esophagus. The nasogastric tube was carefully advanced into the stomach. We now identified the crura of the diaphragm bilaterally and placed multiple sutures of 0 Ethibond across the posterior aspect of the diaphragmatic crura in order to obtain an appropriate hiatal hernia repair. Completion of the hernia repair. Still was a little loose we felt we needed one more suture final suture was placed in at this time was noted that the distal esophagus which had been encased in some dense fibrous tissue was quite thin and that the sidewall of the nasogastric tube and actually perforated the distal esophagus. Esophagus was transected at the level of the GE junction and the interior the esophagus was examined. Mucosa was grade with some chronic scar tissue present and the muscularis was extremely thinned out and almost nonexistent in areas. This felt at this point that to try to repair this esophagus was likely failed due to very poor quality of the tissue and it was decided to proceed to a transhiatal esophagectomy. Head was turned to the right and left neck was sterilely prepped and draped. Dissection was begun in the abdomen dissecting around the esophagus up into the chest cavity. Again there was a lot of dense scar tissue here and it was very tedious and slow and careful dissection allowed us to reach the more normal esophagus at about the level of the tracheal bifurcation. Then continued the abdominal dissection up to the level of the aortic arch. LigaSure and cautery were used to divide any truly dense tissue or any blood vessels. We now proceeded to the neck. A left cervical incision was performed from just above the clavicle mid neck. This carried through skin and subcutaneous tissue and platysma. Dissection was brought on the anterior surface of the sternocleidomastoid and dissection was carried under this sternocleidomastoid in front of the jugular vein and carotid artery. A couple of small branches draining into the jugular were ligated and divided. This allowed us to dissected back to the trachea and posterior to the trachea encountered the esophagus. We dissected around the esophagus bluntly and placed Azael drain around the proximal esophagus. We now continued dissection along the esophagus down into the upper mediastinum. Eventually we were able to connect our dissection to our previous dissection from the abdomen and completely free the esophagus from its connections. At this point the esophagus was pulled up into the chest. The nasogastric tube was maintained in this abdominal cavity. A VIPUL stapler was used to resect a small portion of the lesser curvature of the stomach creating a typical gastric tube. The tip of the gastric tube was gently sewn to the nasogastric tube and the nasogastric tube was pulled up into the neck advancing the gastric tube very gently up into the level of the neck. At this point the gastric tube seemed to lay well and we disconnected it from the nasogastric tube and proceeded with the anastomosis of the stomach to the esophagus. The esophagus was resected proximally and the nasogastric tube pulled back. The proximal esophagus was normal. Specimen was labeled on the proximal and with a long suture. A gastrotomy was made about 2 cm below the apex of the gastric tube and a 2 layer closure was performed with a running Vicryl 30 stitch in the mucosal layer and a horizontal mattress interrupted Lambert 3-0 silk suture layer in the more superficial layer between the muscularis of the esophagus and the muscularis and adventitia of the stomach. Following completion of the first layer, the nasogastric tube was advanced into the stomach and air was insufflated and no leaks were noted under water. On completion of the second layer we were very happy with the anastomosis. Topical of the gastric tube was tacked to the adjacent fascia to avoid any tension on the anastomosis. The wound was irrigated and drained with a Beto-Ann drain brought out through separate stab incision and secured with 3-0 nylon. The incision was closed with layers of Vicryl suture. And attention was then redirected back to the abdomen. The nasogastric tube was advanced gently into the stomach at the level of the diaphragm. The diaphragm was again repaired with interrupted Ethibond sutures disease and been taken down in order to perform the transhiatal esophagectomy. Once we were happy with the closure of the diaphragm around the gastric tube for gastric tube was tacked to the edge of the diaphragm with several seromuscular bites of 3-0 silk. The proximal jejunum was identified at the ligament of Treitz and we went down about 2 feet into the jejunum and made a small jejunotomy. A 16-Khmer red rubber catheter was advanced into the jejunum distally and a 3-0 silk pursestring was placed around this and tied. Lambert Witzel sutures were then placed over the red rubber creating a tunnel about 4 cm long. Stab incision was made in the left abdomen and a hemostat was used to pull the red rubber catheter out onto the abdominal wall and then the bowel was tacked to the abdominal wall at the exit site. We flushed the jejunostomy tube and noted it flushed well. The tip of been advanced about 8 cm into the bowel distally. When rubber catheter was secured at the skin with a 3-0 nylon suture. Was placed on the red rubber tube. We now irrigated the abdomen copiously with warm saline. There had been a little bleeding in the left upper quadrant early in the operation but this was all controlled at this point. We had packed little Surgicel on it. Once we were assured of good sponge counts and instrument counts and good irrigation of the abdomen, the abdominal cavity was closed with a running double-stranded PDS suture. Subcutaneous tissue was closed with 2 layers of Vicryl suture and the skin with a running Vicryl subcuticular stitch. Skin glue and dressings were applied to both incisions. The drain and feeding tube were dressed appropriately. Patient was extubated and [facility]
--- NOTE | 2018-11-01 15:05 | XR ---
EXAMINATION TYPE: XR chest 1V DATE OF EXAM: 11/01/2018 COMPARISON: Prior chest x-ray and chest CT 10/16/2018 HISTORY: Status post paraesophageal hernia repair TECHNIQUE: Single frontal view of the chest is obtained. FINDINGS: Abnormal increased attenuation present at the left lung base. Gastric tube is present, dis aysha tip is not well seen however. There are overlying cardiac leads. No evident pneumothorax. Heart s ize is stable. Aorta is dense. Postop changes again noted to the right shoulder. IMPRESSION: Probable lower lobe atelectasis or lung contusion and associated effusion status post pa raesophageal hernia repair. Distal tip the NG tube is not seen.
[2018-11-01] MEDS ORDERED: BISACODYL 10 MG SUPP RECTAL PRN (15:18)
[2018-11-01] MEDS ORDERED: IPRATROPIUM-ALBUTEROL 3 ML NEB IH PRN (15:18)
[2018-11-01] MEDS ORDERED: DEXTROSE 5%-0.45% NACL 1,000 ML with POTASSIUM CHLORIDE 20 MEQ IV SCH ×2 (15:18)
[2018-11-01 15:49] LABS: Glucose,Whole Blood 203 mg/dL (75-99)
[2018-11-01 16:12] LABS: HCT 38.1 % (34.0-46.0); HGB 11.7 gm/dL (11.4-16.0); MCH 27.8 pg (25.0-35.0); MCHC 30.7 g/dL (31.0-37.0); MCV 90.6 fL (80.0-100.0); Mean Platelet Volume 7.6; Platelet Count 229 k/uL (150-450); RDW 14.4 % (11.5-15.5); WBC 8.7 k/uL (3.8-10.6)
[2018-11-01 16:21] LABS: African American GFR (CKD) >90 (>60 ml/min/1.73 sqM); Anion Gap 6 mmol/L; Blood Urea Nitrogen 12 mg/dL (7-17); Calcium 8.7 mg/dL (8.4-10.2); Carbon Dioxide 22 mmol/L (22-30); Chloride 109 mmol/L (98-107); Glucose 204 mg/dL (74-99); Potassium 3.8 mmol/L (3.5-5.1); Sodium 137 mmol/L (137-145)
[2018-11-01 16:37] LABS: Band Neutrophils % 8 %; Lymphocytes # (M) 0.52 k/uL (1.0-4.8); Neutrophils % (M) 78 %; Nucleated Red Blood Cells 0 /100 WBC (0-0); Total Cells Counted 100
[2018-11-01] MEDS: HEPARIN SODIUM,PORCINE 5,000 UNIT/ML 1 ML VIAL SQ SCH ×2 (16:51→23:21)
[2018-11-01] MEDS: ceFAZolin IN SWFI 2 GM/20 ML SYRINGE IVP SCH ×2 (16:52→23:21)
[2018-11-01] MEDS: D5-0.45% NACL WITH KCL 20MEQ/L 1,000 ML IV SCH ×2 (16:57→23:19)
[2018-11-01] MEDS: ACETAMINOPHEN IV (For NPO) 1,000 MG in EMPTY BAG 1 BAG IVPB SCH ×2 (17:10→23:19)
[2018-11-01] MEDS: IPRATROPIUM-ALBUTEROL 3 ML NEB IH SCH ×2 (17:29→19:58)
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
[2018-11-01] MEDS: FAMOTIDINE 20 MG/2 ML VIAL IV SCH (21:58)
[2018-11-02] MEDS ORDERED: SODIUM CHLORIDE 0.9% 500 ML 500 ML IV ONE ×2 (01:46→07:15)
[2018-11-02 04:49] LABS: Basophils % (A) 0 %; Eosinophils # (A) 0.1 k/uL (0-0.7); Eosinophils % (A) 1 %; HCT 36.2 % (34.0-46.0); HGB 11.5 gm/dL (11.4-16.0); Lymphocytes # (A) 1.5 k/uL (1.0-4.8); Lymphocytes % (A) 9 %; MCH 28.2 pg (25.0-35.0); MCHC 31.8 g/dL (31.0-37.0); MCV 88.5 fL (80.0-100.0); Mean Platelet Volume 8.5; Monocytes # (A) 1.4 k/uL (0-1.0); Monocytes % (A) 8 %; Neutrophils % (A) 80 %; Platelet Count 267 k/uL (150-450); RBC 4.09 m/uL (3.80-5.40); RDW 14.5 % (11.5-15.5); WBC 16.2 k/uL (3.8-10.6)
[2018-11-02 04:54] LABS: Calcium 8.5 mg/dL (8.4-10.2); Potassium 4.8 mmol/L (3.5-5.1)
[2018-11-02] MEDS: ACETAMINOPHEN IV (For NPO) 1,000 MG in EMPTY BAG 1 BAG IVPB SCH ×3 (05:37→23:45)
[2018-11-02 05:48] LABS: Glucose,Whole Blood 130 mg/dL (75-99)
--- NOTE | 2018-11-02 06:42 | P.PN ---
Progress Note - Text Progress Note Date: 11/02/18 Anesthesia epidural rounds Patient evaluated at the bedside status post paraesophageal hernia repair on 11/01/[address] Nguyen Patient denies any complaints, tolerating by mouth liquids Anesthesia epidural placement with adequate block, VAS 3 Epidural site looks clean, dry and intact epidural solution of ropivacaine 0.2 and fentanyl 7. 5 running at 8 mls an hour, no breakthrough medications required Continue with current plan
[2018-11-02] MEDS ORDERED: SODIUM CHLORIDE 0.9% 1,000 ML IV SCH (07:15)
[2018-11-02] MEDS: IPRATROPIUM-ALBUTEROL 3 ML NEB IH SCH ×4 (07:28→20:07)
[2018-11-02 08:11] LABS: Glucose,Whole Blood 112 mg/dL (75-99)
--- NOTE | 2018-11-02 08:14 | XR ---
EXAMINATION TYPE: XR chest 1V portable DATE OF EXAM: 11/02/2018 COMPARISON: Chest x-ray 11/01/2018 HISTORY: Postop esophageal hernia repair TECHNIQUE: Single frontal view of the chest is obtained. FINDINGS: Bibasilar increased density is noted. Heart size is stable. No evident pneumothorax. NG tu be is present, distal tip is not seen, there are overlying cardiac leads. Postoperative changes to th e right shoulder. IMPRESSION: Bibasilar atelectasis and associated effusions. Limitations as described. NG tube coursi ng towards the left upper quadrant.
--- NOTE | 2018-11-02 08:30 | P.CONS ---
History of Present Illness - Reason for Consult Consult date: 11/02/18 - Chief Complaint Medical management - History of Present Illness This is a consultation on a medical consult note on 9-year-old white female essentially with history of atrial fibrillation and chronic low back pain who were consult medical management related to hernia repair for. ParaEsophageal hernia. Review of Systems Constitutional: Denies chills, Denies fever Eyes: denies blurred vision, denies pain Ears, nose, mouth and throat: Denies headache, Denies sore throat Cardiovascular: Denies chest pain, Denies shortness of breath Respiratory: Denies cough Past Medical History Past Medical History: Atrial Fibrillation, COPD, GERD/Reflux, Hypertension, Osteoarthritis (OA), Pneumonia Additional Past Medical History / Comment(s): Possibly beginnings of emphysema, retinitis pigmentosis-no peripheral vision/tunnel vision, chronic low back pain. History of Any Multi-Drug Resistant Organisms: None Reported Past Surgical History: Back Surgery, Hernia Repair, Hysterectomy, Joint Replacement, Orthopedic Surgery, Tonsillectomy Additional Past Surgical History / Comment(s): MAGAN/cardioversion for paroxysmal atrial fibrillation, low back surgery in 1967 and 1968, abdominal hernia repairs (4 surgeried for a total of 7 abdominal hernias), bilateral cataract removal/lens implants, bilateral feet hammer toes (3 of them), R rotator cuff surgery twice and L rotator cuff surgery once, bilateral total knee arthropla sties. Past Anesthesia/Blood Transfusion Reactions: Previous Problems w/ Anesthesia Additional Past Anesthesia/Blood Transfusion Reaction / Comm: Pt has had hypothermia with surgery. Additional Psychological History / Comment(s): Pt resides with her caregiver, Siria Astorga who is also her DPOA. Pt uses a cane or walker to ambulate. She drives minimally d/t eyesight, caregiver does majority of driving. Pt manages her own RX. - Past Family History Father Family Medical History: Cancer Additional Family Medical History / Comment(s): Father had prostate/liver cancer. Mother Family Medical History: Dementia Additional Family Medical History / Comment(s): Mother lived to be 94 yrs old. Brother(s) Family Medical History: Cancer Medications and Allergies Home Medications Medication Instructions Recorded Confirmed Type Acetaminophen Tab [Tylenol Tab] 325 mg PO Q4H PRN 10/30/18 11/01/18 History Aloe Vera 5,000 mg PO DAILY 10/30/18 11/01/18 History Aspirin 81 mg PO DAILY 10/30/18 11/01/18 History Blood Boost Supplement 2 tab PO DAILY 10/30/18 11/01/18 History Cardioplatinum Supplement 2 tab PO DAILY 10/30/18 11/01/18 History Cholecalciferol (Vitamin D3) 2,000 unit PO DAILY 10/30/18 11/01/18 History [Vitamin D3] Famotidine [Pepcid] 20 mg PO BID 10/30/18 11/01/18 History L.acidoph,Paracasei, B.lactis 1 cap PO DAILY 10/30/18 11/01/18 History [Probiotic] Multivitamin With Minerals 1 tab PO DAILY 10/30/18 11/01/18 History [facility] Bladder Supp 1 tab PO DAILY 10/30/18 11/01/18 History Allergies Allergy/AdvReac Type Severity Reaction Status Date / Time meperidine [From Demerol] Allergy Vomiting Verified 11/01/18 13:43 omeprazole Allergy Nausea & Verified 11/01/18 13:43 Vomiting oxycodone Allergy Vomiting Verified 11/01/18 13:43 adhesive tape AdvReac Unknown Rash/Hives Verified 11/01/18 13:43 Physical Exam Vitals: Vital Signs Temp Pulse Pulse Resp BP BP BP 11/02/18 08:00 98.3 F 81 16 148/64 11/02/18 07:37 84 16 11/02/18 07:29 87 16 11/02/18 07:00 83 16 117/55 11/02/18 06:00 76 16 125/54 11/02/18 05:00 99.4 F 82 15 113/53 11/02/18 04:00 72 12 106/51 11/02/18 03:00 70 12 111/51 11/02/18 02:00 68 14 102/50 11/02/18 01:00 68 11 L 98/41 11/02/18 00:00 98.7 F 63 13 112/49 11/01/18 23:00 66 11 L 11/01/18 22:00 61 11 L 91/37 11/01/18 21:17 59 L 12 94/40 11/01/18 21:00 62 10 L 94/52 11/01/18 20:00 97.9 F 60 68 16 104/47 11/01/18 19:00 73 16 92/47 11/01/18 18:30 55 L 12 108/47 11/01/18 18:00 75 19 108/39 11/01/18 17:43 88 11/01/18 17:30 96.5 F L 70 16 122/59 11/01/18 17:00 96.0 F L 76 18 110/54 11/01/18 16:30 62 15 107/43 11/01/18 16:00 58 L 68 18 106/48 11/01/18 15:39 72 12 85/66 11/01/18 15:18 61 16 112/57 111/48 11/01/18 15:00 53 L 16 111/54 97/58 11/01/18 14:45 72 16 107/45 11/01/18 14:30 72 16 115/55 101/46 11/01/18 14:17 72 16 111/55 96/46 11/01/18 14:00 76 16 109/56 98/46 11/01/18 13:45 97 F L 78 16 111/56 Pulse Ox 11/02/18 08:00 92 L 11/02/18 07:37 11/02/18 07:29 11/02/18 07:00 94 L 11/02/18 06:00 92 L 11/02/18 05:00 94 L 11/02/18 04:00 94 L 11/02/18 03:00 93 L 11/02/18 02:00 92 L 11/02/18 01:00 94 L 11/02/18 00:00 95 11/01/18 23:00 95 11/01/18 22:00 94 L 11/01/18 21:17 96 11/01/18 21:00 97 11/01/18 20:00 97 11/01/18 19:00 97 11/01/18 18:30 97 11/01/18 18:00 98 11/01/18 17:43 11/01/18 17:30 95 11/01/18 17:00 96 11/01/18 16:30 96 11/01/18 16:00 96 11/01/18 15:39 96 11/01/18 15:18 95 11/01/18 15:00 95 11/01/18 14:45 95 11/01/18 14:30 95 11/01/18 14:17 95 11/01/18 14:00 95 11/01/18 13:45 95 Intake and Output 11/01/18 11/02/18 11/02/18 22:59 06:59 14:59 Intake Total 720 1660 720 Output Total 2170 135 35 Balance -1450 1525 685 Intake: IV 360 1660 720 ACETAMINOPHEN IV (For NPO 200 ) 1,000 mg In Empty Bag 1 bag @ 400 mls/hr IVPB Q6HR [facility] Rx#:[id number] D5-0.45% NaCl with KCl 360 960 220 20Meq/l 1,000 ml @ 120 mls/hr IV .Q8H20M [facility] Rx# :[id number] Sodium Chloride 0.9% 500 500 500 ml 500 ml @ 999 mls/hr IV .Q31M [facility] Rx#:[id number] Intake, IV Titration 360 Amount ACETAMINOPHEN IV (For NPO 0 ) 1,000 mg In Empty Bag 1 bag @ 400 mls/hr IVPB Q6HR [facility] Rx#:[id number] D5-0.45% NaCl with KCl 360 20Meq/l 1,000 ml @ 120 mls/hr IV .Q8H20M [facility] Rx# :[id number] Output: Urine 2170 135 35 Other: Voiding Method Indwelling Catheter Indwelling Catheter Weight 111.4 kg ABP, PAP, CO, CI - Last 8 Hours Arterial Blood Pressure 127/64 Arterial Blood Pressure 147/106 Arterial Blood Pressure 118/77 Arterial Blood Pressure 142/53 Arterial Blood Pressure 126/99 Arterial Blood Pressure 127/98 Arterial Blood Pressure 111/91 - Constitutional General appearance: no acute distress - EENT Eyes: EOMI - Neck Neck: no lymphadenopathy - Respiratory Respiratory: bilateral: diminished - Cardiovascular Rhythm: irregularly irregular Heart sounds: normal: S1, S2 Abnormal Heart Sounds: no S3 Gallop - Gastrointestinal General gastrointestinal: soft, no tenderness Localized gastrointestinal: mass: RUQ, LUQ, RLQ, LLQ, epigastric periumbilical, suprabubic, midline - Integumentary Integumentary: no cyanotic Results CBC & Chem 7: 11/02/18 04:10 11/02/18 04:10 Labs: Abnormal Lab Results - Last 24 Hours (Table) 05/11/01/18 11/01/18 Range/Units 10:25 10:55 10:55 WBC 13.0 H (3.8-10.6) k/uL MCHC (31.0-37.0) g/dL Neutrophils # (1.3-7.7) k/uL Lymphocytes # (Manual) (1.0-4.8) k/uL Monocytes # (0-1.0) k/uL ABG pO2 210 H (83-108) mmHg ABG O2 Saturation 99.5 H (94-97) % Sodium (137-145) mmol/L Chloride 112 H (98-107) mmol/L Creatinine (0.52-1.04) mg/dL Glucose 159 H (74-99) mg/dL POC Glucose (mg/dL) (75-99) mg/dL Calcium 8.3 L (8.4-10.2) mg/dL 11/01/18 11/01/18 11/01/18 Range/Units 15:45 15:45 15:47 WBC (3.8-10.6) k/uL MCHC 30.7 L (31.0-37.0) g/dL Neutrophils # (1.3-7.7) k/uL Lymphocytes # (Manual) 0.52 L (1.0-4.8) k/uL Monocytes # (0-1.0) k/uL ABG pO2 (83-108) mmHg ABG O2 Saturation (94-97) % Sodium (137-145) mmol/L Chloride 109 H (98-107) mmol/L Creatinine 0.48 L (0.52-1.04) mg/dL Glucose 204 H (74-99) mg/dL POC Glucose (mg/dL) 203 H (75-99) mg/dL Calcium (8.4-10.2) mg/dL 11/02/18 11/02/18 11/02/18 Range/Units 04:10 04:10 05:47 WBC 16.2 H (3.8-10.6) k/uL MCHC (31.0-37.0) g/dL Neutrophils # 13.0 H (1.3-7.7) k/uL Lymphocytes # (Manual) (1.0-4.8) k/uL Monocytes # 1.4 H (0-1.0) k/uL ABG pO2 (83-108) mmHg ABG O2 Saturation (94-97) % Sodium 135 L (137-145) mmol/L Chloride (98-107) mmol/L Creatinine (0.52-1.04) mg/dL Glucose 148 H (74-99) mg/dL POC Glucose (mg/dL) 130 H (75-99) mg/dL Calcium (8.4-10.2) mg/dL 11/02/18 Range/Units 08:09 WBC (3.8-10.6) k/uL MCHC (31.0-37.0) g/dL Neutrophils # (1.3-7.7) k/uL Lymphocytes # (Manual) (1.0-4.8) k/uL Monocytes # (0-1.0) k/uL ABG pO2 (83-108) mmHg ABG O2 Saturation (94-97) % Sodium (137-145) mmol/L Chloride (98-107) mmol/L Creatinine (0.52-1.04) mg/dL Glucose (74-99) mg/dL POC Glucose (mg/dL) 112 H (75-99) mg/dL Calcium (8.4-10.2) mg/dL Assessment and Plan (1) Chest pain Current Visit: No Status: Acute Code(s): R07.9 - CHEST PAIN, UNSPECIFIED SNOMED Code(s): 52036810 (2) Hiatal hernia Current Visit: No Status: Acute Code(s): K44.9 - DIAPHRAGMATIC HERNIA WITHOUT OBSTRUCTION OR GANGRENE SNOMED Code(s): 76209861 Plan: We'll continue follow from a postoperative perspective. Dr. Grant's group will be covering for the weekend. Check CBC and CMP in a.m. See orders otherwise. Time with Patient: Less than 30
[2018-11-02] MEDS: FAMOTIDINE 20 MG/2 ML VIAL IV SCH ×2 (08:53→20:49)
[2018-11-02] MEDS: HEPARIN SODIUM,PORCINE 5,000 UNIT/ML 1 ML VIAL SQ SCH ×3 (08:53→23:42)
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
[2018-11-02 12:00] LABS: Glucose,Whole Blood 92 mg/dL (75-99)
[2018-11-02] MEDS: DEXTROSE 5%-0.45% NACL 1,000 ML with POTASSIUM CHLORIDE 10 MEQ IV SCH ×4 (12:03→23:43)
[2018-11-02] MEDS: MULTIVITAMINS, THERA LIQUID 237 ML BOTTLE PEJ/J-Tube SCH (12:49)
[2018-11-02 18:27] LABS: Glucose,Whole Blood 114 mg/dL (75-99)
[2018-11-02] MEDS: FENTANYL EPIDURAL PRN (18:53)
[2018-11-02] MEDS: SODIUM CHLORIDE 0.9% EPIDURAL PRN (18:53)
[2018-11-02] MEDS: ROPIVACAINE EPIDURAL PRN (18:53)
[2018-11-02] MEDS ORDERED: AMIODARONE 360 MG in DEXTROSE 5% IN WATER 200 ML IV ONE ×2 (22:00)
[2018-11-02] MEDS ORDERED: DEXTROSE 5% IN WATER 100 ML with AMIODARONE 150 MG IV ONE (22:00)
[2018-11-03 00:30] LABS: Glucose,Whole Blood 144 mg/dL (75-99)
[2018-11-03] MEDS ORDERED: DEXTROSE 5% IN WATER 100 ML with AMIODARONE 150 MG IV ONE (00:42)
[2018-11-03] MEDS: INSULIN ASPART (NovoLOG) 100 UNIT/ML VIAL SQ SCH ×4 (01:15→18:59)
[2018-11-03 05:41] LABS: Glucose,Whole Blood 109 mg/dL (75-99)
[2018-11-03] MEDS: AMIODARONE 300 MG in DEXTROSE 5% IN WATER 250 ML IV SCH ×4 (06:01→16:05)
[2018-11-03] MEDS: ACETAMINOPHEN IV (For NPO) 1,000 MG in EMPTY BAG 1 BAG IVPB SCH ×3 (06:05→18:38)
[2018-11-03 06:26] LABS: Albumin 2.6 g/dL (3.5-5.0); Calcium 8.4 mg/dL (8.4-10.2); Potassium 4.4 mmol/L (3.5-5.1)
--- NOTE | 2018-11-03 07:18 | XR ---
EXAMINATION TYPE: XR chest 1V portable DATE OF EXAM: 11/03/2018 HISTORY: Postoperative esophagectomy. REFERENCE: Previous study dated 11/02/2018. FINDINGS: There is an NG tube in place. Its tip is in the stomach. The heart is enlarged. There is bibasilar atelectasis as well as bilateral effusions. The overall itzel earance is similar to previous. IMPRESSION: 1. CONTINUING BIBASILAR AIRSPACE DISEASE. 2. CARDIOMEGALY. 3. BILATERAL EFFUSIONS.
[2018-11-03] MEDS: IPRATROPIUM-ALBUTEROL 3 ML NEB IH SCH ×4 (07:39→21:20)
[2018-11-03 08:06] LABS: Basophils # (A) 0.1 k/uL (0-0.2); Basophils % (A) 0 %; Eosinophils # (A) 0.3 k/uL (0-0.7); Eosinophils % (A) 2 %; HCT 32.9 % (34.0-46.0); HGB 10.7 gm/dL (11.4-16.0); Hypochromasia Slight; Lymphocytes % (A) 11 %; MCH 29.3 pg (25.0-35.0); MCHC 32.5 g/dL (31.0-37.0); MCV 90.2 fL (80.0-100.0); Mean Platelet Volume 9.7; Monocytes # (A) 1.5 k/uL (0-1.0); Monocytes % (A) 9 %; Neutrophils # (A) 13.9 k/uL (1.3-7.7); Neutrophils % (A) 78 %; Platelet Count 209 k/uL (150-450); RBC 3.65 m/uL (3.80-5.40); RDW 14.7 % (11.5-15.5); WBC 17.9 k/uL (3.8-10.6)
[2018-11-03] MEDS: MULTIVITAMINS, THERA LIQUID 237 ML BOTTLE PEJ/J-Tube SCH (08:28)
[2018-11-03] MEDS: HEPARIN SODIUM,PORCINE 5,000 UNIT/ML 1 ML VIAL SQ SCH ×2 (08:28→17:17)
[2018-11-03] MEDS: FAMOTIDINE 20 MG/2 ML VIAL IV SCH ×2 (08:28→21:34)
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
[2018-11-03 12:02] LABS: Glucose,Whole Blood 138 mg/dL (75-99)
[2018-11-03] MEDS: DEXTROSE 5%-0.45% NACL 1,000 ML with POTASSIUM CHLORIDE 10 MEQ IV SCH ×2 (12:42)
[2018-11-03] MEDS: D5-0.9% NACL WITH KCL 20 MEQ/L 1,000 ML IV SCH (13:00)
[2018-11-03] MEDS: METOPROLOL TARTRATE 5 MG/5 ML VIAL IVP SCH ×2 (13:00→18:59)
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
[2018-11-03] MEDS: BISACODYL 10 MG SUPP RECTAL SCH (14:48)
[2018-11-03] MEDS: FUROSEMIDE 10 MG/ML 2 ML VIAL IV SCH (17:17)
--- NOTE | 2018-11-03 17:20 | P.PN ---
Progress Note - Text Progress Note Date: 11/03/18 Patient is postop day 2 from paraesophageal hernia repair. She has a thoracic epidural which was placed on November 01. She reports that she has no pain. The epidural has been decreased and is running at 4 ML's an hour. Patient has been up and walking. She continues to have a Little catheter per the surgical team. She denies any numbness or tingling or any weakness in her legs or arms. She denies any shortness of breath. Denies any significant pruritus. Epidural catheter is in place and the site is clean. There is some dry blood in the area. There is no leaking noted. The patient will continue the epidural until tomorrow. We'll discontinue epidural tomorrow afternoon
[2018-11-03 18:20] LABS: Glucose,Whole Blood 128 mg/dL (75-99)
[2018-11-03 19:32] LABS: Hemoglobin A1C 5.5 % (4.0-6.0)
[2018-11-03 23:49] LABS: Glucose,Whole Blood 100 mg/dL (75-99)
[2018-11-04] MEDS: FUROSEMIDE 10 MG/ML 2 ML VIAL IV SCH ×3 (00:11→16:26)
[2018-11-04] MEDS: METOPROLOL TARTRATE 5 MG/5 ML VIAL IVP SCH ×4 (00:12→17:39)
[2018-11-04] MEDS: INSULIN ASPART (NovoLOG) 100 UNIT/ML VIAL SQ SCH ×4 (00:12→18:31)
[2018-11-04] MEDS: HEPARIN SODIUM,PORCINE 5,000 UNIT/ML 1 ML VIAL SQ SCH ×3 (00:12→16:26)
[2018-11-04 05:41] LABS: ALT 26 U/L (9-52); AST 39 U/L (14-36); African American GFR (CKD) >90 (>60 ml/min/1.73 sqM); Albumin 2.5 g/dL (3.5-5.0); Alkaline Phosphatase 68 U/L (38-126); Anion Gap 6 mmol/L; Blood Urea Nitrogen 16 mg/dL (7-17); Calcium 8.1 mg/dL (8.4-10.2); Carbon Dioxide 24 mmol/L (22-30); Chloride 105 mmol/L (98-107); Glucose 95 mg/dL (74-99); Potassium 3.8 mmol/L (3.5-5.1); Sodium 135 mmol/L (137-145); Total Bilirubin 0.8 mg/dL (0.2-1.3); Total Protein 4.8 g/dL (6.3-8.2)
[2018-11-04 06:02] LABS: Basophils # (A) 0.1 k/uL (0-0.2); Basophils % (A) 0 %; Eosinophils # (A) 0.3 k/uL (0-0.7); Eosinophils % (A) 2 %; Lymphocytes # (A) 1.8 k/uL (1.0-4.8); Lymphocytes % (A) 13 %; MCHC 32.4 g/dL (31.0-37.0); MCV 89.7 fL (80.0-100.0); Mean Platelet Volume 8.8; Monocytes # (A) 0.8 k/uL (0-1.0); Monocytes % (A) 6 %; Neutrophils # (A) 10.5 k/uL (1.3-7.7); Neutrophils % (A) 77 %; Platelet Count 199 k/uL (150-450); RBC 3.45 m/uL (3.80-5.40); RDW 15.1 % (11.5-15.5); WBC 13.7 k/uL (3.8-10.6)
--- NOTE | 2018-11-04 06:20 | XR ---
EXAMINATION TYPE: XR chest 1V portable DATE OF EXAM: 11/04/2018 HISTORY: Postoperative esophagectomy. REFERENCE: Previous study dated 11/03/2018. FINDINGS: The heart is enlarged. There is vascular congestion and pulmonary edema. There is bibasilar airspace disease. There are bilateral effusions. IMPRESSION: WORSENING CHANGES OF CONGESTIVE HEART FAILURE.
[2018-11-04 07:12] LABS: Glucose,Whole Blood 112 mg/dL (75-99)
[2018-11-04] MEDS: IPRATROPIUM-ALBUTEROL 3 ML NEB IH SCH ×4 (07:20→19:38)
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
--- NOTE | 2018-11-04 07:56 | P.PN ---
Progress Note - Text Progress Note Date: 11/04/18 Patient is POD 3, catheter day # 4. Doing well, no pain, catheter at 4cc/hr overnight. NO weakness, altered mental status, or parasthesia. She has been ambulating, tejada catheter in place per surgery team. Plan to d/c catheter today, order placed with instructions regarding heparin timing. call anesthesia with questions. [id number]
[2018-11-04] MEDS: BISACODYL 10 MG SUPP RECTAL SCH (08:09)
[2018-11-04] MEDS: FAMOTIDINE 20 MG/2 ML VIAL IV SCH ×2 (08:10→21:11)
[2018-11-04] MEDS: MULTIVITAMINS, THERA LIQUID 237 ML BOTTLE PEJ/J-Tube SCH (08:12)
[2018-11-04] MEDS: ACETAMINOPHEN IV (For NPO) 1,000 MG in EMPTY BAG 1 BAG IVPB SCH ×4 (09:47→23:58)
[2018-11-04 11:55] LABS: Glucose,Whole Blood 122 mg/dL (75-99)
[2018-11-04] MEDS: POTASSIUM CHLORIDE 10 MEQ in WATER FOR INJECTION 1 100ML.BAG IVPB SCH ×2 (12:34→14:38)
[2018-11-04] MEDS: D5-0.9% NACL WITH KCL 20 MEQ/L 1,000 ML IV SCH (12:34)
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
[2018-11-04 17:53] LABS: Glucose,Whole Blood 126 mg/dL (75-99)
[2018-11-04] MEDS: ROPIVACAINE EPIDURAL PRN (21:12)
[2018-11-04] MEDS: FENTANYL EPIDURAL PRN (21:12)
[2018-11-04] MEDS: SODIUM CHLORIDE 0.9% EPIDURAL PRN (21:12)
[2018-11-05] MEDS: FUROSEMIDE 10 MG/ML 2 ML VIAL IV SCH ×4 (00:01→23:33)
[2018-11-05 00:23] LABS: Glucose,Whole Blood 100 mg/dL (75-99)
[2018-11-05] MEDS: INSULIN ASPART (NovoLOG) 100 UNIT/ML VIAL SQ SCH ×5 (01:10→23:58)
[2018-11-05 05:55] LABS: Glucose,Whole Blood 127 mg/dL (75-99)
[2018-11-05 06:20] LABS: Basophils # (A) 0.1 k/uL (0-0.2); Basophils % (A) 0 %; Eosinophils # (A) 0.8 k/uL (0-0.7); Eosinophils % (A) 6 %; HCT 32.8 % (34.0-46.0); HGB 10.5 gm/dL (11.4-16.0); Hypochromasia Slight; Lymphocytes % (A) 15 %; MCH 28.7 pg (25.0-35.0); MCHC 31.9 g/dL (31.0-37.0); MCV 89.8 fL (80.0-100.0); Mean Platelet Volume 8.9; Monocytes % (A) 7 %; Neutrophils # (A) 9.2 k/uL (1.3-7.7); Neutrophils % (A) 69 %; Platelet Count 247 k/uL (150-450); RBC 3.66 m/uL (3.80-5.40); RDW 15.1 % (11.5-15.5); WBC 13.2 k/uL (3.8-10.6)
--- NOTE | 2018-11-05 06:27 | P.PN ---
Progress Note - Text Progress Note Date: 11/05/18 POD 4, Catheter day [address] Nguyen requesting to keep the epidural in place. We are monitoring the site closely. site is clean and dry, epidural running at 2cc/hr this morning. Patient has complete analgesia. no weakness, numbness, tingling, fevers/chills. tejada is in place per surgical team. She is able to ambulate and has clear mentation. We will follow up tomorrow and likely d/c tomorrow[place] [phone]
[2018-11-05] MEDS: METOPROLOL TARTRATE 5 MG/5 ML VIAL IVP SCH ×5 (06:29→23:33)
[2018-11-05 06:30] LABS: African American GFR (CKD) >90 (>60 ml/min/1.73 sqM); Anion Gap 6 mmol/L; Blood Urea Nitrogen 16 mg/dL (7-17); Carbon Dioxide 24 mmol/L (22-30); Chloride 106 mmol/L (98-107); Glucose 122 mg/dL (74-99); Magnesium 1.8 mg/dL (1.6-2.3); Potassium 3.7 mmol/L (3.5-5.1); Sodium 136 mmol/L (137-145)
[2018-11-05] MEDS ORDERED: Potassium Replacement Protocol 1 EACH MISC MISCELLANE PRN (06:32)
[2018-11-05] MEDS ORDERED: Magnesium Replacement Protocol 1 EACH MISC MISCELLANE PRN (06:33)
--- NOTE | 2018-11-05 07:49 | P.PN ---
Subjective Progress Note Date: 11/05/18 Principal diagnosis: continue care the patient is here essentially because of significant problems related to hiatal hernia. She is now postop day #4. She seems to be doing quite well. Tolerating tube feeds. Objective - Vital Signs Vital signs: Vital Signs Temp 98.4 F 11/05/18 04:00 Pulse 80 11/05/18 07:00 Resp 19 11/05/18 07:00 BP 139/66 11/05/18 07:00 Pulse Ox 95 11/05/18 07:00 Intake & Output 11/04/18 11/05/18 11/05/18 18:59 06:59 18:59 Intake Total 1840.0 1690 100 Output Total 1600 1390 40 Balance 240.0 300 60 Weight 108.4 kg Intake: IV 880 880 40 ACETAMINOPHEN IV (For NPO 200 400 ) 1,000 mg In Empty Bag 1 bag @ 400 mls/hr IVPB Q6HR [facility] Rx#:[id number] D5-0.9% NaCl with KCl 20 480 480 40 Meq/l 1,000 ml @ 40 mls/ hr IV .Q24H [facility] Rx#: [id number] Potassium Chloride 10 meq 200 In Water For Injection 1 100ml.bag @ 100 mls/hr IVPB Q1H [facility] Rx#: [id number] Intake, IV Titration 250.0 Amount Ropivacaine 500 mg 250.0 fentaNYL (PF) 1,250 mcg In Sodium Chloride 0.9% 125 ml @ Per Protocol EPIDURAL .Q0M [facility] Rx#: [id number] Tube Feeding 620 720 60 Other 90 90 Output: Urine 1600 1390 40 Other: Voiding Method Indwelling Catheter Indwelling Catheter ABP, PAP, CO, CI - Last Documented Arterial Blood Pressure 97/49 - Constitutional General appearance: Present: no acute distress - EENT Eyes: Absent: abnormal pupil - Neck Neck: Absent: lymphadenopathy - Respiratory Respiratory: bilateral: CTA - Cardiovascular Rhythm: regular Heart sounds: normal: S1, S2 Abnormal Heart Sounds: Absent: S3 Gallop - Gastrointestinal General gastrointestinal: Present: soft. Absent: tenderness - Integumentary Integumentary: Absent: cellulitis - Psychiatric Psychiatric: Present: A&O x's 3, appropriate affect, intact judgment & insight - Labs CBC & Chem 7: 11/05/18 04:55 11/05/18 04:55 Labs: Abnormal Lab Results - Last 24 Hours (Table) 11/04/18 11/04/18 11/05/18 Range/Units 11:54 17:51 00:21 WBC (3.8-10.6) k/uL RBC (3.80-5.40) m/uL Hgb (11.4-16.0) gm/dL Hct (34.0-46.0) % Neutrophils # (1.3-7.7) k/uL Eosinophils # (0-0.7) k/uL Sodium (137-145) mmol/L Glucose (74-99) mg/dL POC Glucose (mg/dL) 122 H 126 H 100 H (75-99) mg/dL Calcium (8.4-10.2) mg/dL 11/05/18 11/05/18 11/05/18 Range/Units 04:55 04:55 05:53 WBC 13.2 H (3.8-10.6) k/uL RBC 3.66 L (3.80-5.40) m/uL Hgb 10.5 L (11.4-16.0) gm/dL Hct 32.8 L (34.0-46.0) % Neutrophils # 9.2 H (1.3-7.7) k/uL Eosinophils # 0.8 H (0-0.7) k/uL Sodium 136 L (137-145) mmol/L Glucose 122 H (74-99) mg/dL POC Glucose (mg/dL) 127 H (75-99) mg/dL Calcium 8.0 L (8.4-10.2) mg/dL Assessment and Plan (1) Chest pain Current Visit: No Status: Acute Code(s): R07.9 - CHEST PAIN, UNSPECIFIED SNOMED Code(s): 09234564 (2) Hiatal hernia Current Visit: No Status: Acute Code(s): K44.9 - DIAPHRAGMATIC HERNIA WITHOUT OBSTRUCTION OR GANGRENE SNOMED Code(s): 88275272 Plan: continue current regimen of treatment. She seems to be progressing and appropriate trajectory of recovery. We'll continue follow from a medical standpoint. Time with Patient: Less than 30
[2018-11-05] MEDS: IPRATROPIUM-ALBUTEROL 3 ML NEB IH SCH ×4 (08:02→19:35)
[2018-11-05] MEDS: POTASSIUM CHLORIDE 10 MEQ in WATER FOR INJECTION 1 100ML.BAG IVPB SCH ×2 (08:03→09:13)
[2018-11-05] MEDS: MAGNESIUM SULFATE-D5W PMX 1 GM in DEXTROSE/WATER 1 100ML.BAG IVPB SCH ×2 (08:03→09:13)
[2018-11-05] MEDS: HEPARIN SODIUM,PORCINE 5,000 UNIT/ML 1 ML VIAL SQ SCH ×4 (08:04→23:33)
[2018-11-05] MEDS: FAMOTIDINE 20 MG/2 ML VIAL IV SCH ×2 (08:04→21:45)
--- NOTE | 2018-11-05 08:17 | XR ---
EXAMINATION TYPE: XR chest 1V portable DATE OF EXAM: 11/05/2018 COMPARISON: Prior chest x-ray 11/04/2018 HISTORY: Post esophagectomy TECHNIQUE: Single frontal view of the chest is obtained. FINDINGS: NG tube is in place, distal tip is coursing into the abdomen but is not seen. Bibasilar in creased density is noted. Some improvement in aeration of the upper lobes is noted. There is persiste nt blunting of the costophrenic angle on the left. Heart size is stable. There are overlying cardiac leads. Postop changes are noted to the right shoulder. Patient is rotated. IMPRESSION: Probable basilar effusions and associated atelectasis, correlate to exclude pneumonia. S uspect some improvement in aeration, volume status. Additional follow-up recommended.
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
[2018-11-05] MEDS: MULTIVITAMINS, THERA LIQUID 237 ML BOTTLE PEJ/J-Tube SCH (09:13)
[2018-11-05] MEDS: BISACODYL 10 MG SUPP RECTAL SCH (12:18)
[2018-11-05] MEDS: D5-0.9% NACL WITH KCL 20 MEQ/L 1,000 ML IV SCH (13:05)
[2018-11-05 13:06] LABS: Glucose,Whole Blood 116 mg/dL (75-99)
[2018-11-05 18:15] LABS: Glucose,Whole Blood 142 mg/dL (75-99)
[2018-11-05 23:45] LABS: Glucose,Whole Blood 155 mg/dL (75-99)
[2018-11-06 05:33] LABS: Glucose,Whole Blood 134 mg/dL (75-99)
[2018-11-06 05:53] LABS: African American GFR (CKD) >90 (>60 ml/min/1.73 sqM); Anion Gap 5 mmol/L; Blood Urea Nitrogen 19 mg/dL (7-17); Calcium 8.2 mg/dL (8.4-10.2); Carbon Dioxide 29 mmol/L (22-30); Chloride 104 mmol/L (98-107); Glucose 137 mg/dL (74-99); Potassium 3.7 mmol/L (3.5-5.1); Sodium 138 mmol/L (137-145)
[2018-11-06] MEDS: INSULIN ASPART (NovoLOG) 100 UNIT/ML VIAL SQ SCH ×3 (06:06→17:24)
[2018-11-06] MEDS: METOPROLOL TARTRATE 5 MG/5 ML VIAL IVP SCH ×3 (06:06→17:22)
[2018-11-06 06:07] LABS: HCT 32.5 % (34.0-46.0); HGB 10.4 gm/dL (11.4-16.0); Hypochromasia Slight; MCH 28.8 pg (25.0-35.0); MCHC 32.1 g/dL (31.0-37.0); MCV 89.8 fL (80.0-100.0); Mean Platelet Volume 8.6; Platelet Count 298 k/uL (150-450); RBC 3.62 m/uL (3.80-5.40); RDW 15.5 % (11.5-15.5); WBC 11.6 k/uL (3.8-10.6)
[2018-11-06] MEDS: IPRATROPIUM-ALBUTEROL 3 ML NEB IH SCH ×4 (07:55→19:48)
[2018-11-06] MEDS: HEPARIN SODIUM,PORCINE 5,000 UNIT/ML 1 ML VIAL SQ SCH ×2 (08:09→15:56)
[2018-11-06] MEDS: FUROSEMIDE 10 MG/ML 2 ML VIAL IV SCH ×2 (08:10→15:56)
[2018-11-06] MEDS: BISACODYL 10 MG SUPP RECTAL SCH (08:10)
[2018-11-06] MEDS: FAMOTIDINE 20 MG/2 ML VIAL IV SCH ×2 (08:10→20:42)
[2018-11-06] MEDS: MULTIVITAMINS, THERA LIQUID 237 ML BOTTLE PEJ/J-Tube SCH (08:11)
--- NOTE | 2018-11-06 08:43 | XR ---
EXAMINATION TYPE: XR chest 1V portable DATE OF EXAM: 11/06/2018 COMPARISON: 11/05/2018 HISTORY: post esophagectomy FINDINGS: There are bilateral pleural effusions with cardiomegaly and bibasilar infiltrate. There is a diffuse interstitial pattern. Postsurgical changes involving the right shoulder was a calcification in the a xilla which can be associated with calcified lymph node or synovial chondromatosis. Arthropathy of th e left shoulder. Atherosclerotic change aorta. Biapical pleural thickening. IMPRESSION: 1. Bilateral airspace disease and pleural effusion correlate for CHF otherwise consider diffuse pneum onia.
--- NOTE | 2018-11-06 10:50 | P.PN ---
Progress Note - Text Progress Note Date: 11/06/18 Patient is post op day 5, cath day 6. Doing well, site is clean and dry, running at 2cc/hr. Pain well controlled, able to cough, no lower ext weakness, no upper ext weakness, no changes in mental status, no fevers/chills. We would like to remove the catheter today to avoid risk of neuraxial infection.
[2018-11-06 11:31] LABS: Glucose,Whole Blood 133 mg/dL (75-99)
[2018-11-06] MEDS ORDERED: fentaNYL (PF) 50 MCG/ML 2 ML AMP IVP PRN (11:47)
[2018-11-06] MEDS ORDERED: ACETAMINOPHEN ORAL SUSP 160 MG/5 ML CUP PO PRN (12:21)
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
[2018-11-06] MEDS: KETOROLAC 30 MG/ML 1 ML VIAL IVP SCH ×2 (12:54→17:22)
[2018-11-06] MEDS: POTASSIUM CHLORIDE 10 MEQ in WATER FOR INJECTION 1 100ML.BAG IVPB SCH ×2 (12:57→15:56)
[2018-11-06] MEDS: D5-0.9% NACL WITH KCL 20 MEQ/L 1,000 ML IV SCH (12:58)
[2018-11-06] MEDS ORDERED: HEPARIN SODIUM,PORCINE 5,000 UNIT/ML 1 ML VIAL ONE (16:00)
[2018-11-06] MEDS ORDERED: FUROSEMIDE 10 MG/ML 2 ML VIAL ONE (16:00)
[2018-11-06 17:18] LABS: Glucose,Whole Blood 112 mg/dL (75-99)
[2018-11-06] MEDS ORDERED: FUROSEMIDE 10 MG/ML 2 ML VIAL IV SCH (21:00)
--- NOTE | 2018-11-06 22:25 | P.PN ---
Subjective Principal diagnosis: continue care the patient is here essentially because of significant problems related to hiatal hernia. She is now postop day #5 She seems to be doing quite well. Tolerating tube feeds. Objective - Vital Signs Vital signs: Vital Signs Temp 98.4 F 11/06/18 20:00 Pulse 99 11/06/18 22:00 Resp 36 H 11/06/18 22:00 BP 144/63 11/06/18 21:00 Pulse Ox 98 11/06/18 22:00 Intake & Output 11/06/18 11/06/18 11/07/18 06:59 18:59 06:59 Intake Total 1190 1640 420 Output Total 865 970 600 Balance 325 670 -180 Weight 107.7 kg 110.586 kg Intake: IV 480 480 160 D5-0.9% NaCl with KCl 20 480 480 160 Meq/l 1,000 ml @ 40 mls/ hr IV .Q24H [facility] Rx#: [id number] Intake, IV Titration 200 Amount Potassium Chloride 10 meq 200 In Water For Injection 1 100ml.bag @ 100 mls/hr IVPB Q1H [facility] Rx#: [id number] Oral 30 0 Tube Feeding 650 780 260 Other 60 150 0 Output: Drainage 10 Left Neck 10 Urine 865 960 600 Other: Voiding Method Indwelling Catheter Indwelling Catheter Indwelling Catheter # Bowel Movements 1 ABP, PAP, CO, CI - Last Documented Arterial Blood Pressure 97/49 - Constitutional General appearance: Present: no acute distress - EENT Eyes: Absent: abnormal pupil - Neck Neck: Absent: lymphadenopathy Thyroid: right: normal size - Respiratory Respiratory: bilateral: CTA - Cardiovascular Rhythm: regular Heart sounds: normal: S1, S2 Abnormal Heart Sounds: Absent: S3 Gallop - Gastrointestinal General gastrointestinal: Present: soft. Absent: tenderness - Musculoskeletal Musculoskeletal: Absent: gait normal - Psychiatric Psychiatric: Present: A&O x's 3. Absent: appropriate affect - Labs CBC & Chem 7: 11/06/18 05:07 11/06/18 05:07 Labs: Abnormal Lab Results - Last 24 Hours (Table) 11/05/18 11/06/18 11/06/18 Range/Units 23:44 05:07 05:07 WBC 11.6 H (3.8-10.6) k/uL RBC 3.62 L (3.80-5.40) m/uL Hgb 10.4 L (11.4-16.0) gm/dL Hct 32.5 L (34.0-46.0) % BUN 19 H (7-17) mg/dL Creatinine 0.50 L (0.52-1.04) mg/dL Glucose 137 H (74-99) mg/dL POC Glucose (mg/dL) 155 H (75-99) mg/dL Calcium 8.2 L (8.4-10.2) mg/dL 11/06/18 11/06/18 11/06/18 Range/Units 05:30 11:19 17:07 WBC (3.8-10.6) k/uL RBC (3.80-5.40) m/uL Hgb (11.4-16.0) gm/dL Hct (34.0-46.0) % BUN (7-17) mg/dL Creatinine (0.52-1.04) mg/dL Glucose (74-99) mg/dL POC Glucose (mg/dL) 134 H 133 H 112 H (75-99) mg/dL Calcium (8.4-10.2) mg/dL Assessment and Plan (1) Chest pain Current Visit: No Status: Acute Code(s): R07.9 - CHEST PAIN, UNSPECIFIED SNOMED Code(s): 93978804 (2) Hiatal hernia Current Visit: No Status: Acute Code(s): K44.9 - DIAPHRAGMATIC HERNIA WITHOUT OBSTRUCTION OR GANGRENE SNOMED Code(s): 96435344 Plan: continue current regimen of treatment. She seems to be progressing and appropriate trajectory of recovery. We'll continue follow from a medical standpoint. Time with Patient: Less than 30
[2018-11-07 00:02] LABS: Glucose,Whole Blood 139 mg/dL (75-99)
[2018-11-07] MEDS: KETOROLAC 30 MG/ML 1 ML VIAL IVP SCH ×5 (00:56→23:33)
[2018-11-07] MEDS: HEPARIN SODIUM,PORCINE 5,000 UNIT/ML 1 ML VIAL SQ SCH ×4 (00:57→23:34)
[2018-11-07] MEDS: INSULIN ASPART (NovoLOG) 100 UNIT/ML VIAL SQ SCH ×5 (00:57→23:33)
[2018-11-07] MEDS: METOPROLOL TARTRATE 5 MG/5 ML VIAL IVP SCH ×5 (01:02→23:34)
[2018-11-07 05:25] LABS: HCT 33.7 % (34.0-46.0); HGB 10.8 gm/dL (11.4-16.0); Hypochromasia Slight; MCH 28.9 pg (25.0-35.0); MCV 90.5 fL (80.0-100.0); Mean Platelet Volume 8.3; Platelet Count 355 k/uL (150-450); RBC 3.72 m/uL (3.80-5.40); WBC 11.8 k/uL (3.8-10.6)
[2018-11-07 05:37] LABS: African American GFR (CKD) >90 (>60 ml/min/1.73 sqM); Anion Gap 7 mmol/L; Blood Urea Nitrogen 22 mg/dL (7-17); Calcium 8.3 mg/dL (8.4-10.2); Carbon Dioxide 27 mmol/L (22-30); Chloride 102 mmol/L (98-107); Glucose 116 mg/dL (74-99); Potassium 4.2 mmol/L (3.5-5.1); Sodium 136 mmol/L (137-145)
[2018-11-07 05:39] LABS: Glucose,Whole Blood 141 mg/dL (75-99)
--- NOTE | 2018-11-07 07:33 | XR ---
EXAMINATION TYPE: XR chest 1V portable DATE OF EXAM: 11/07/2018 COMPARISON: Prior chest x-ray 11/06/2018 HISTORY: Status post esophagectomy TECHNIQUE: Single frontal view of the chest is obtained. FINDINGS: Gastric tube is again noted, distal tip not included on the exam. There are overlying card iac leads. Bibasilar increased density persists. There is no evident pneumothorax. Hemidiaphragms are obscured. The heart is enlarged. Patient is rotated. Postop change noted to the right shoulder. IMPRESSION: Stable pleural-parenchymal changes. Probable basilar effusions and associated atelectasi s versus edema, difficult to exclude volume overload, pulmonary venous hypertension and interstitial edema.
[2018-11-07] MEDS: IPRATROPIUM-ALBUTEROL 3 ML NEB IH SCH ×4 (08:06→19:34)
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
[2018-11-07] MEDS: FAMOTIDINE 20 MG/2 ML VIAL IV SCH ×2 (09:03→20:20)
[2018-11-07] MEDS: FUROSEMIDE 10 MG/ML 2 ML VIAL IV SCH (09:03)
[2018-11-07] MEDS ORDERED: DEXTROSE 5% IN WATER 100 ML with AMIODARONE 150 MG IV ONE (09:45)
[2018-11-07] MEDS: BISACODYL 10 MG SUPP RECTAL SCH (10:08)
[2018-11-07] MEDS: MULTIVITAMINS, THERA LIQUID 237 ML BOTTLE PEJ/J-Tube SCH (10:08)
--- NOTE | 2018-11-07 10:47 | FL ---
EXAMINATION TYPE: FL barium swallow DATE OF EXAM: 11/07/2018 CLINICAL HISTORY: Patient has history of esophagectomy with gastric pull-up procedure due to large he rnia surgical correction performed roughly 1 week ago with weakened esophagus at time of surgery TECHNIQUE: A single contrast esophagram is attempted utilizing Isovue 370. 3 attempts of drinking we re performed. A total of 55 seconds of fluoroscopic time was utilized during procedure. 59 spot image s are saved to PACS. COMPARISON: Chest x-ray earlier today and older x-rays. CTA chest October 16, 2018. FINDINGS: Die Barber image redemonstrates nasogastric tube. There is persistent moderate-sized left pleura l effusion and small right pleural effusion with associated bibasilar atelectasis and/or infiltrate. There is dilated gas filled tubular structure consistent with gastric pull-up in the mid chest. Surgi frank sutures right humeral head with right axillary calcification is redemonstrated. Degenerative greer ge left shoulder incidentally noted. Overlying EKG leads are present. Exam is suboptimal due to patient's underlying medical condition as well as difficulty standing. Only single upright frontal projection could be performed due to above limitations along with overlying m onitoring equipment. Upon swallowing contrast patient has repeated coughing and choking, there is sug gestion of aspiration which patient clears upon coughing. There is persistent narrowing at the anasto mosis above the aortic knob seen best image 7 with shouldering present involving the distal esophagea l margin just above the anastomosis. There is improved visualization of narrowed channel on page 22 o f 59 PACS saved image at site of anastomosis. There is satisfactory flow at level of diaphragm from p ull-up stomach into stomach below diaphragm. No definitive extravasation is seen. Delayed post esopha gram upright x-ray does not show suspicious contrast outside the gastric pull-up or stomach below timo phragm. IMPRESSION: Suboptimal study without fluoroscopic evidence for leak. There is narrowing at the anast omosis. Patient has significant coughing with suspected aspiration clear as with coughing during atte mpted swallowing of contrast.
[2018-11-07 11:39] LABS: Glucose,Whole Blood 129 mg/dL (75-99)
[2018-11-07] MEDS: D5-0.9% NACL WITH KCL 20 MEQ/L 1,000 ML IV SCH (15:59)
[2018-11-07 17:20] LABS: Glucose,Whole Blood 107 mg/dL (75-99)
--- NOTE | 2018-11-07 22:41 | P.PN ---
Subjective Progress Note Date: 11/07/18 Principal diagnosis: continue care The patient is stable. Swallowing study is pending for this morning. Objective - Vital Signs Vital signs: Vital Signs Temp 98.2 F 11/07/18 20:00 Pulse 96 11/07/18 22:00 Resp 15 11/07/18 22:00 BP 131/62 11/07/18 22:00 Pulse Ox 94 L 11/07/18 22:00 Intake & Output 11/07/18 11/07/18 11/08/18 06:59 18:59 06:59 Intake Total 1095 1670 305 Output Total 1095 655 130 Balance 0 1015 175 Weight 109.6 kg Intake: IV 480 480 80 D5-0.9% NaCl with KCl 20 480 480 80 Meq/l 1,000 ml @ 40 mls/ hr IV .Q24H [facility] Rx#: [id number] Intake, IV Titration 100 Amount Dextrose 5% in Water 100 100 ml @ 618 mls/hr IV .Q10M ONE with Amiodarone 150 mg Rx#:[id number] Oral 0 0 0 Tube Feeding 585 910 195 Other 30 180 30 Output: Gastric Drainage 200 100 Urine 1095 455 30 Other: Voiding Method Indwelling Catheter Indwelling Catheter Indwelling Catheter ABP, PAP, CO, CI - Last Documented Arterial Blood Pressure 97/49 - Constitutional General appearance: Present: average body habitus - EENT Eyes: Present: abnormal pupil - Neck Neck: Absent: lymphadenopathy - Respiratory Respiratory: bilateral: CTA - Cardiovascular Rhythm: regular Heart sounds: normal: S1, S2 Abnormal Heart Sounds: Absent: S3 Gallop - Gastrointestinal General gastrointestinal: Present: soft. Absent: splenomegaly, tenderness - Integumentary Integumentary: Absent: cellulitis - Neurologic Neurologic: Present: CNII-XII intact. Absent: focal deficits - Psychiatric Psychiatric: Present: A&O x's 3 - Labs CBC & Chem 7: 11/07/18 04:24 11/07/18 04:24 Labs: Abnormal Lab Results - Last 24 Hours (Table) 11/07/18 11/07/18 11/07/18 Range/Units 00:01 04:24 04:24 WBC 11.8 H (3.8-10.6) k/uL RBC 3.72 L (3.80-5.40) m/uL Hgb 10.8 L (11.4-16.0) gm/dL Hct 33.7 L (34.0-46.0) % Sodium 136 L (137-145) mmol/L BUN 22 H (7-17) mg/dL Creatinine 0.46 L (0.52-1.04) mg/dL Glucose 116 H (74-99) mg/dL POC Glucose (mg/dL) 139 H (75-99) mg/dL Calcium 8.3 L (8.4-10.2) mg/dL 11/07/18 11/07/18 11/07/18 Range/Units 05:38 11:27 17:09 WBC (3.8-10.6) k/uL RBC (3.80-5.40) m/uL Hgb (11.4-16.0) gm/dL Hct (34.0-46.0) % Sodium (137-145) mmol/L BUN (7-17) mg/dL Creatinine (0.52-1.04) mg/dL Glucose (74-99) mg/dL POC Glucose (mg/dL) 141 H 129 H 107 H (75-99) mg/dL Calcium (8.4-10.2) mg/dL Microbiology - Last 24 Hours (Table) 11/06/18 10:00 Gram Stain - Preliminary Sputum Sputum Culture - Preliminary Presumptive Staph aureus Assessment and Plan (1) Chest pain Current Visit: No Status: Acute Code(s): R07.9 - CHEST PAIN, UNSPECIFIED SNOMED Code(s): 30719195 (2) Hiatal hernia Current Visit: No Status: Acute Code(s): K44.9 - DIAPHRAGMATIC HERNIA WITHOUT OBSTRUCTION OR GANGRENE SNOMED Code(s): 31565890 Plan: After swallowing study is done today, we will hopefully be able to advance feeding aspect of her treatment. Otherwise, we will continue to follow with cardiovascular thoracic surgery.
[2018-11-07 23:35] LABS: Glucose,Whole Blood 133 mg/dL (75-99)
[2018-11-08 04:54] LABS: HCT 29.5 % (34.0-46.0); HGB 9.5 gm/dL (11.4-16.0); Hypochromasia Slight; MCHC 32.4 g/dL (31.0-37.0); MCV 89.6 fL (80.0-100.0); Mean Platelet Volume 8.1; Platelet Count 410 k/uL (150-450); RBC 3.29 m/uL (3.80-5.40); RDW 15.3 % (11.5-15.5); WBC 14.6 k/uL (3.8-10.6)
[2018-11-08 05:03] LABS: African American GFR (CKD) >90 (>60 ml/min/1.73 sqM); Anion Gap 8 mmol/L; Blood Urea Nitrogen 27 mg/dL (7-17); Calcium 8.1 mg/dL (8.4-10.2); Carbon Dioxide 26 mmol/L (22-30); Chloride 103 mmol/L (98-107); Glucose 146 mg/dL (74-99); Magnesium 2.1 mg/dL (1.6-2.3); Potassium 4.2 mmol/L (3.5-5.1); Sodium 137 mmol/L (137-145)
[2018-11-08 05:55] LABS: Glucose,Whole Blood 124 mg/dL (75-99)
[2018-11-08] MEDS: KETOROLAC 30 MG/ML 1 ML VIAL IVP SCH ×4 (05:59→23:26)
[2018-11-08] MEDS: METOPROLOL TARTRATE 5 MG/5 ML VIAL IVP SCH ×4 (06:00→23:27)
[2018-11-08] MEDS: INSULIN ASPART (NovoLOG) 100 UNIT/ML VIAL SQ SCH ×3 (06:00→17:30)
--- NOTE | 2018-11-08 07:56 | P.PN ---
Subjective Principal diagnosis: continue care After swallowing study was completed, and we will advance diet. She seems stable today. No sniffing fever or chills. No overt nausea lately. Objective - Vital Signs Vital signs: Vital Signs Temp 98.2 F 11/08/18 04:00 Pulse 73 11/08/18 07:00 Resp 17 11/08/18 07:00 BP 144/51 11/08/18 07:00 Pulse Ox 96 11/08/18 07:00 Intake & Output 11/07/18 11/08/18 11/08/18 18:59 06:59 18:59 Intake Total 1670 1520 Output Total 655 615 Balance 1015 905 Weight 107.5 kg Intake: IV 480 520 D5-0.9% NaCl with KCl 20 480 520 Meq/l 1,000 ml @ 40 mls/ hr IV .Q24H [facility] Rx#: [id number] Intake, IV Titration 100 Amount Dextrose 5% in Water 100 100 ml @ 618 mls/hr IV .Q10M ONE with Amiodarone 150 mg Rx#:[id number] Oral 0 0 Tube Feeding 910 910 Other 180 90 Output: Gastric Drainage 200 250 Drainage 10 Left Neck 10 Urine 455 355 Other: Voiding Method Indwelling Catheter Indwelling Catheter ABP, PAP, CO, CI - Last Documented Arterial Blood Pressure 97/49 - Constitutional General appearance: Present: average body habitus - EENT Eyes: Absent: abnormal pupil - Neck Neck: Absent: lymphadenopathy - Respiratory Respiratory: bilateral: CTA - Cardiovascular Rhythm: regular Heart sounds: normal: S1, S2 Abnormal Heart Sounds: Absent: S3 Gallop - Gastrointestinal General gastrointestinal: Present: soft. Absent: tenderness - Psychiatric Psychiatric: Present: A&O x's 3 - Labs CBC & Chem 7: 11/08/18 04:18 11/08/18 04:18 Labs: Abnormal Lab Results - Last 24 Hours (Table) 11/07/18 11/07/18 11/07/18 Range/Units 11:27 17:09 23:32 WBC (3.8-10.6) k/uL RBC (3.80-5.40) m/uL Hgb (11.4-16.0) gm/dL Hct (34.0-46.0) % BUN (7-17) mg/dL Creatinine (0.52-1.04) mg/dL Glucose (74-99) mg/dL POC Glucose (mg/dL) 129 H 107 H 133 H (75-99) mg/dL Calcium (8.4-10.2) mg/dL 11/08/18 11/08/18 11/08/18 Range/Units 04:18 04:18 05:54 WBC 14.6 H (3.8-10.6) k/uL RBC 3.29 L (3.80-5.40) m/uL Hgb 9.5 L (11.4-16.0) gm/dL Hct 29.5 L (34.0-46.0) % BUN 27 H (7-17) mg/dL Creatinine 0.49 L (0.52-1.04) mg/dL Glucose 146 H (74-99) mg/dL POC Glucose (mg/dL) 124 H (75-99) mg/dL Calcium 8.1 L (8.4-10.2) mg/dL Microbiology - Last 24 Hours (Table) 11/06/18 10:00 Gram Stain - Preliminary Sputum Sputum Culture - Preliminary Presumptive Staph aureus Assessment and Plan (1) Chest pain Current Visit: No Status: Acute Code(s): R07.9 - CHEST PAIN, UNSPECIFIED SNOMED Code(s): 92628061 (2) Hiatal hernia Current Visit: No Status: Acute Code(s): K44.9 - DIAPHRAGMATIC HERNIA WITHOUT OBSTRUCTION OR GANGRENE SNOMED Code(s): 06679251 Plan: Significant positive improvement and appropriate recovery trajectory at this time. Anticipate transfer out of ICU soon We'll continue to follow.
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
--- NOTE | 2018-11-08 08:32 | XR ---
EXAMINATION TYPE: XR chest 1V portable DATE OF EXAM: 11/08/2018 COMPARISON: 11/07/2018 HISTORY: Post esophagectomy TECHNIQUE: Single frontal view of the chest is obtained. FINDINGS: Technique limits assessment of the NG tube. Diffuse bilateral airspace disease with pleura l effusion and interstitial pattern noted. Postsurgical change right shoulder with calcific density r ight axilla. No pneumothorax. Arthropathy shoulders. Atherosclerotic change aorta. IMPRESSION: 1. Bilateral consolidation and pleural effusion correlate for CHF versus diffuse pneumonia. Findings are stable.
[2018-11-08] MEDS: IPRATROPIUM-ALBUTEROL 3 ML NEB IH SCH ×4 (08:55→20:39)
[2018-11-08] MEDS: FUROSEMIDE 10 MG/ML 2 ML VIAL IV SCH (09:25)
[2018-11-08] MEDS: FAMOTIDINE 20 MG/2 ML VIAL IV SCH ×2 (09:25→21:10)
[2018-11-08] MEDS: HEPARIN SODIUM,PORCINE 5,000 UNIT/ML 1 ML VIAL SQ SCH ×3 (09:25→23:27)
[2018-11-08] MEDS: MULTIVITAMINS, THERA LIQUID 237 ML BOTTLE PEJ/J-Tube SCH (09:25)
[2018-11-08] MEDS: BISACODYL 10 MG SUPP RECTAL SCH (09:28)
[2018-11-08] MEDS ORDERED: BISACODYL 10 MG SUPP RECTAL PRN (09:29)
[2018-11-08 11:54] LABS: Glucose,Whole Blood 99 mg/dL (75-99)
[2018-11-08] MEDS: LEVOFLOXACIN 500MG-D5W PMX 500 MG in DEXTROSE/WATER 1 100ML.BAG IVPB SCH (12:05)
[2018-11-08 17:30] LABS: Glucose,Whole Blood 99 mg/dL (75-99)
--- NOTE | 2018-11-08 18:25 | PN ---
PROGRESS NOTE DATE OF SERVICE: 11/08/2018 This is an 83-year-old female, postop day #7 status post laparotomy and repair of paraesophageal hernia, transhiatal esophagectomy and feeding jejunostomy. The patient had been seen by our group on the and . She may have fell off her list. Dr. Nguyen called me today and asked to see her back again. In addition, she has a history of chronic atrial fibrillation, benign essential hypertension, history of retinitis pigmentosa, mild asymptomatic COPD, chronic low back pain and some postoperative atelectasis. The patient apparently more recently has developed wet congested cough. She is coughing up phlegm. There is some color to it. There is slight yellow. No fever, no chills. Apparently a sputum sample was sent was positive for methicillin sensitive Staph aureus. Dr. Nguyen called me on the phone and asked me to see her back again. Clinically, she looks well. She is on a couple L of O2. She is doing her incentive spirometer every half hour. She denies being particularly short of breath. She otherwise is feeling reasonably well. She denies any fever, chills, nausea, vomiting, diarrhea, chest pain, chest discomfort, etc. PHYSICAL EXAMINATION: Current vital signs are reviewed. Her temperature is 97.9. Heart rate 86, respiratory rate 23, blood pressure 160/56, mean 90. 2 L saturation is 96%. She appears in no acute distress. HEENT examination is grossly unremarkable. Mucous membranes are moist. Nasal O2 is noted. NECK: Supple. Full range of motion. No adenopathy or thyromegaly. Neck veins are flat. Cardiovascular examination reveals regular rhythm and rate. S1, S2 normal. LUNGS: Coarse rhonchi. There is some expiratory wheezes. No crackles. ABDOMEN: Soft. Bowel sounds are heard. Extremities are intact. No cyanosis, clubbing, or edema. Skin without rash. Neurologic examination is brief but nonfocal. LABS: Reviewed. Her white count 14.6, hemoglobin 9.5, hematocrit 29.5, platelet count 410,000, sodium and potassium chloride CO2 all normal. Anion gap is 8 BUN and creatinine were 27 and 0.49. Microbiology: She has a sputum that was done on November 06. It is consistent with methicillin sensitive Staph aureus. It is sensitive to just about everything. MEDICATIONS: Reviewed. She is currently on Tylenol, Dulcolax, Famotidine, Lasix, heparin subcu, insulin, updrafts, Toradol. Levaquin started today per my recommendation, metoprolol, multivitamins, Zofran, potassium replacement, and a basic IV. The patient had a chest x-ray today. It shows some bilateral lower lobe consolidation, pleural effusion and maybe some fluid overload. ASSESSMENT: 1. Postop day #7 status post laparotomy, repair of paraesophageal hernia, transhiatal esophagectomy and feeding jejunostomy. 2. Recent development of methicillin sensitive Staph aureus pneumonia, left lower lobe and possibly right lower lobe. 3. History of chronic atrial fibrillation. 4. Benign essential hypertension. 5. History of retinitis pigmentosa. 6. Mild chronic obstructive pulmonary disease. 7. Chronic low back pain. 8. Postoperative atelectasis. 9. Postoperative anemia. PLAN: The patient was started on Levaquin. She is on DuoNeb. Would recommend hourly incentive spirometry. We recommend deep breathing coughing and clearing of secretions. Additional recommendations and suggestions are forthcoming. Prognosis is guarded. We are going to add some Pulmicort and Performist. MMODL / IJN: [id number] / MTDD
[2018-11-08] MEDS: FORMOTEROL FUMARATE 20 MCG/2 ML NEBU INHALATION SCH (20:39)
[2018-11-08] MEDS: BUDESONIDE 0.5 MG/2 ML NEBU INHALATION SCH (20:40)
[2018-11-09 00:06] LABS: Glucose,Whole Blood 143 mg/dL (75-99)
[2018-11-09] MEDS: INSULIN ASPART (NovoLOG) 100 UNIT/ML VIAL SQ SCH ×4 (00:26→18:16)
[2018-11-09 06:12] LABS: Glucose,Whole Blood 165 mg/dL (75-99)
[2018-11-09] MEDS: METOPROLOL TARTRATE 5 MG/5 ML VIAL IVP SCH ×4 (06:12→23:25)
[2018-11-09] MEDS: KETOROLAC 30 MG/ML 1 ML VIAL IVP SCH ×4 (06:13→23:24)
[2018-11-09 06:23] LABS: HCT 30.4 % (34.0-46.0); HGB 9.7 gm/dL (11.4-16.0); Hypochromasia Slight; MCH 28.5 pg (25.0-35.0); MCHC 31.9 g/dL (31.0-37.0); MCV 89.2 fL (80.0-100.0); Mean Platelet Volume 7.7; Platelet Count 434 k/uL (150-450); RBC 3.41 m/uL (3.80-5.40); RDW 15.1 % (11.5-15.5); WBC 13.5 k/uL (3.8-10.6)
[2018-11-09 06:37] LABS: African American GFR (CKD) >90 (>60 ml/min/1.73 sqM); Anion Gap 7 mmol/L; Blood Urea Nitrogen 32 mg/dL (7-17); Calcium 8.6 mg/dL (8.4-10.2); Carbon Dioxide 27 mmol/L (22-30); Chloride 104 mmol/L (98-107); Glucose 153 mg/dL (74-99); Potassium 3.9 mmol/L (3.5-5.1); Sodium 138 mmol/L (137-145)
[2018-11-09] MEDS ORDERED: FUROSEMIDE 10 MG/ML 4 ML VIAL IV STA (06:58)
--- NOTE | 2018-11-09 08:22 | XR ---
EXAMINATION TYPE: XR chest 1V portable DATE OF EXAM: 11/09/2018 COMPARISON: 11/08/2018 HISTORY: Post esophagectomy. TECHNIQUE: Single frontal view of the chest is obtained. FINDINGS: Diffuse bilateral airspace disease with pleural effusion and interstitial pattern noted. P ostsurgical change right shoulder with calcific density right axilla. No pneumothorax. Arthropathy sh oulders. Atherosclerotic change aorta. NG tube has been removed. IMPRESSION: 1. Bilateral consolidation and pleural effusion correlate for CHF versus diffuse pneumonia. Findings are stable.
[2018-11-09] MEDS: FORMOTEROL FUMARATE 20 MCG/2 ML NEBU INHALATION SCH ×2 (08:34→21:29)
[2018-11-09] MEDS: IPRATROPIUM-ALBUTEROL 3 ML NEB IH SCH ×4 (08:34→21:29)
[2018-11-09] MEDS: BUDESONIDE 0.5 MG/2 ML NEBU INHALATION SCH (08:35)
--- NOTE | 2018-11-09 09:23 | P.PN ---
Subjective Progress Note Date: 11/09/18 Principal diagnosis: Paraesophageal hernia, status post post-laparotomy, and repair of her esophageal hernia, and transhiatal esophagectomy, and feeding jejunostomy On 11/09/2017 patient seen on selective care unit in follow-up, today is postop day 7, status post laparotomy, repair of paraesophageal hernia, transhiatal esophagectomy and feeding jejunostomy. We were asked to see the patient again consultation for increased shortness of breath, and possibility of pneumonia, and fluid overload. Sputum culture showed methicillin sensitive Staphylococcus aureus, the patient has been started on Levaquin. She has been getting daily dose of Lasix IV, 20 mg daily, and today's chest x-ray showed bilateral consolidation and pleural effusion, CHF versus diffuse pneumonia. Patient will be given a dose of 40 mg of Lasix today. She is voiding, her weight is stable. She is currently on 4 L of oxygen with a pulse ox of 98%, fever or chills, hemodynamically stable. Respirations are nonlabored. Lung sounds are coarse, with some expiratory wheezes. Remains on breathing treatments, Pulmicort and Perforomist, Leonid. Objective - Vital Signs Vital signs: Vital Signs Temp 97.9 F 11/09/18 03:51 Pulse 84 11/09/18 09:01 Resp 22 11/09/18 03:51 BP 165/81 11/09/18 03:51 Pulse Ox 98 11/09/18 03:51 Intake & Output 11/08/18 11/09/18 11/09/18 18:59 06:59 18:59 Intake Total 1050 226 Output Total 590 75 2 Balance 460 -75 224 Weight 107.5 kg 107.6 kg Intake: IV 140 D5-0.9% NaCl with KCl 20 40 Meq/l 1,000 ml @ 40 mls/ hr IV .Q24H [facility] Rx#: [id number] Levofloxacin 500Mg-D5w 100 Pmx 500 mg In Dextrose/ Water 1 100ml.bag @ 100 mls/hr IVPB Q24H [facility] Rx#: [id number] Oral 200 226 Tube Feeding 650 Other 60 Output: Urine 590 75 1 Stool 1 Other: Voiding Method Bedside Commode Bedside Commode # Voids 1 1 # Bowel Movements 1 1 ABP, PAP, CO, CI - Last Documented Arterial Blood Pressure 97/49 - Exam GENERAL EXAM: Alert, pleasant, 83-year-old white female, on 4 L of oxygen comfortable in no apparent distress. HEAD: Normocephalic/atraumatic. EYES: Normal reaction of pupils, equal size. Conjunctiva pink, sclera white. NOSE: Clear with pink turbinates. NG tube present to low intermittent suction THROAT: No erythema or exudates. NECK: No masses, no JVD, no thyroid enlargement, no adenopathy. Left neck incision clean dry and intact, well approximated, CHEST: No chest wall deformity. Symmetrical expansion. LUNGS: Equal air entry and lateral, diminished breath sounds, respirations even and nonlabored, some scattered rhonchi, and wheezes CVS: Regular rate and rhythm, normal S1 and S2, no gallops, no murmurs, no rubs ABDOMEN: Soft, nontender. No hepatosplenomegaly, normal bowel sounds, no guarding or rigidity. J-tube is present, with tube feedings, positive flatus, mid abdominal incision is approximated with Dermabond, no drainage. VICK drain with small amount of serous drainage EXTREMITIES: No clubbing, no edema, no cyanosis, 2+ pulses and upper and lower extremities. MUSCULOSKELETAL: Muscle strength and tone normal. SPINE: No scoliosis or deformity SKIN: No rashes CENTRAL NERVOUS SYSTEM: Alert and oriented -3. No focal deficits, tone is normal in all 4 extremities. PSYCHIATRIC: Alert and oriented -3. Appropriate affect. Intact judgment and insight. - Labs CBC & Chem 7: 11/09/18 06:08 11/09/18 06:08 Labs: Abnormal Lab Results - Last 24 Hours (Table) 11/09/18 11/09/18 11/09/18 Range/Units 00:04 06:08 06:08 WBC 13.5 H (3.8-10.6) k/uL RBC 3.41 L (3.80-5.40) m/uL Hgb 9.7 L (11.4-16.0) gm/dL Hct 30.4 L (34.0-46.0) % BUN 32 H (7-17) mg/dL Creatinine 0.49 L (0.52-1.04) mg/dL Glucose 153 H (74-99) mg/dL POC Glucose (mg/dL) 143 H (75-99) mg/dL 11/09/18 Range/Units 06:08 WBC (3.8-10.6) k/uL RBC (3.80-5.40) m/uL Hgb (11.4-16.0) gm/dL Hct (34.0-46.0) % BUN (7-17) mg/dL Creatinine (0.52-1.04) mg/dL Glucose (74-99) mg/dL POC Glucose (mg/dL) 165 H (75-99) mg/dL Microbiology - Last 24 Hours (Table) 11/06/18 10:00 Gram Stain - Final Sputum Sputum Culture - Final Staphylococcus aureus Assessment and Plan Plan: Assessment: #1. Acute hypoxic respiratory failure related to MSSA pneumonia left lower lobe and possibly right lower lobe, and fluid volume overload #2. Large paraesophageal hernia, status post laparotomy and repair, postop day 7 #3. Distal esophageal chronic ulceration, status post transhiatal esophagectomy with jejunostomy tube placement #4. History of chronic atrial fibrillation #5. Essential hypertension #6. History of retinitis pigmentosa #7. Mild chronic obstructive pulmonary disease #8. Make low back pain #9. Postoperative anemia #10. Postoperative atelectasis Plan: Continue with current antibiotic coverage, breathing treatments, we'll give the patient a dose of 40 mg of IV Lasix today. We'll continue with maintenance dose of Lasix. Today's chest x-ray has been reviewed with Dr. Albert, patient has been seen and evaluated by Dr. Broderick, showing interstitial prominence, and bila teral lower lobe infiltrates likely related to pneumonia, and a component of CHF, and atelectasis. Signs are stable, no fever or chills, continue to follow and make further recommendations I performed a history & physical examination of the patient and discussed their management with my nurse practitioner, Cindy Gutierrez. I reviewed the nurse practitioner's note and agree with the documented findings and plan of care. Lung sounds are positive for diffuse wheezes throughout the lung [place]. The findings and the impression was discussed with the patient. I attest to the documentation by the nurse practitioner. Time with Patient: Less than 30
[2018-11-09] MEDS: FAMOTIDINE 20 MG/2 ML VIAL IV SCH ×2 (09:58→21:51)
[2018-11-09] MEDS: MULTIVITAMINS, THERA LIQUID 237 ML BOTTLE PEJ/J-Tube SCH (09:58)
[2018-11-09] MEDS: HEPARIN SODIUM,PORCINE 5,000 UNIT/ML 1 ML VIAL SQ SCH ×3 (09:58→23:24)
[2018-11-09] MEDS: FUROSEMIDE 10 MG/ML 2 ML VIAL IV SCH (09:58)
[2018-11-09 12:23] LABS: Glucose,Whole Blood 105 mg/dL (75-99)
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
[2018-11-09] MEDS ORDERED: FUROSEMIDE 10 MG/ML 2 ML VIAL IV ONE (15:00)
[2018-11-09] MEDS: LEVOFLOXACIN 500MG-D5W PMX 500 MG in DEXTROSE/WATER 1 100ML.BAG IVPB SCH (15:10)
[2018-11-09 17:25] LABS: Glucose,Whole Blood 105 mg/dL (75-99)
[2018-11-09] MEDS: BUDESONIDE 1 MG/2 ML NEBU INHALATION SCH (21:29)
[2018-11-09 23:18] LABS: Glucose,Whole Blood 146 mg/dL (75-99)
[2018-11-10 05:22] LABS: Glucose,Whole Blood 140 mg/dL (75-99)
[2018-11-10] MEDS: INSULIN ASPART (NovoLOG) 100 UNIT/ML VIAL SQ SCH ×4 (06:01→17:21)
--- NOTE | 2018-11-10 06:44 | XR ---
EXAMINATION TYPE: XR chest 1V portable DATE OF EXAM: 11/10/2018 HISTORY: Postoperative soft esophagectomy. REFERENCE: Previous study dated 11/09/2018. FINDINGS: The heart is mildly enlarged. There is bibasilar airspace disease. There are bilateral effu sions. IMPRESSION: NO SIGNIFICANT INTERVAL CHANGE IN THE APPEARANCE THE CHEST.
[2018-11-10] MEDS: METOPROLOL TARTRATE 5 MG/5 ML VIAL IVP SCH ×4 (06:49→23:23)
[2018-11-10] MEDS: KETOROLAC 30 MG/ML 1 ML VIAL IVP SCH ×4 (06:50→23:23)
[2018-11-10 06:59] LABS: HCT 28.1 % (34.0-46.0); Hypochromasia Slight; MCH 28.9 pg (25.0-35.0); MCV 90.4 fL (80.0-100.0); Mean Platelet Volume 7.6; Platelet Count 462 k/uL (150-450); RBC 3.11 m/uL (3.80-5.40); RDW 15.7 % (11.5-15.5); WBC 12.1 k/uL (3.8-10.6)
[2018-11-10] MEDS: FORMOTEROL FUMARATE 20 MCG/2 ML NEBU INHALATION SCH ×2 (07:06→20:23)
[2018-11-10] MEDS: IPRATROPIUM-ALBUTEROL 3 ML NEB IH SCH ×4 (07:06→20:23)
[2018-11-10] MEDS: BUDESONIDE 1 MG/2 ML NEBU INHALATION SCH ×2 (07:06→20:23)
[2018-11-10 07:09] LABS: African American GFR (CKD) >90 (>60 ml/min/1.73 sqM); Anion Gap 7 mmol/L; Blood Urea Nitrogen 38 mg/dL (7-17); Calcium 8.5 mg/dL (8.4-10.2); Carbon Dioxide 30 mmol/L (22-30); Chloride 101 mmol/L (98-107); Glucose 105 mg/dL (74-99); Magnesium 2.3 mg/dL (1.6-2.3); Phosphorus 4.4 mg/dL (2.5-4.5); Sodium 138 mmol/L (137-145)
[2018-11-10] MEDS: FAMOTIDINE 20 MG/2 ML VIAL IV SCH ×2 (08:47→20:46)
[2018-11-10] MEDS: FUROSEMIDE 10 MG/ML 2 ML VIAL IV SCH (08:47)
[2018-11-10] MEDS: HEPARIN SODIUM,PORCINE 5,000 UNIT/ML 1 ML VIAL SQ SCH ×3 (08:47→23:23)
[2018-11-10] MEDS: MULTIVITAMINS, THERA LIQUID 237 ML BOTTLE PEJ/J-Tube SCH (09:18)
--- NOTE | 2018-11-10 09:56 | P.PN ---
Subjective Progress Note Date: 11/10/18 Principal diagnosis: Paraesophageal hernia, status post laparotomy, repair of esophageal hernia, and tidal esophagectomy, feeding jejunostomy The patient is seen today 11/10/2018 in follow-up on the selective care unit. She is currently sitting up in a chair at the bedside. Awake and alert in no acute distress. Maintaining O2 saturations in the 90s on 4 L/m per nasal cannul a. Still having some sensation of difficulty in breathing at times. Currently afebrile. Hemodynamically stable. Tolerating tube feedings. Sputum positive for Staphylococcus aureus. White count 12.1. Hemoglobin 9.0. Creatinine 0.59. Today's chest x-ray shows no significant change. There is mild cardiomegaly, bibasilar airspace disease, bilateral effusions. She remains on DuoNeb inhalations, Pulmicort inhalations, IV diuretics, antibiotics in the form of Levaquin. Objective - Vital Signs Vital signs: Vital Signs Temp 97.8 F 11/10/18 04:00 Pulse 79 11/10/18 08:00 Resp 20 11/10/18 08:00 BP 133/62 11/10/18 08:00 Pulse Ox 92 L 11/10/18 04:00 Intake & Output 11/09/18 11/10/18 11/10/18 18:59 06:59 18:59 Intake Total 691 315 Output Total 2 2 50 Balance 689 313 -50 Weight 107.2 kg Intake: IV 240 Levofloxacin 500Mg-D5w 240 Pmx 500 mg In Dextrose/ Water 1 100ml.bag @ 100 mls/hr IVPB Q24H [facility] Rx#: [id number] Oral 256 120 Tube Feeding 195 195 Output: Urine 1 50 Stool 1 2 Other: Voiding Method Bedside Commode # Voids 1 1 # Bowel Movements 1 ABP, PAP, CO, CI - Last Documented Arterial Blood Pressure 97/49 - Exam GENERAL EXAM: Alert, pleasant, 83-year-old female, up in a chair, on 4 L of oxygen comfortable in no apparent distress. HEAD: Normocephalic/atraumatic. EYES: Normal reaction of pupils, equal size. Conjunctiva pink, sclera white. NOSE: Clear with pink turbinates. THROAT: No erythema or exudates. Voice is hoarse. NECK: No masses, no JVD, no thyroid enlargement, no adenopathy. Left neck incision clean dry and intact, well approximated, CHEST: No chest wall deformity. Symmetrical expansion. LUNGS: Equal air entry and lateral, diminished breath sounds, respirations even and nonlabored, some scattered rhonchi CVS: Regular rate and rhythm, normal S1 and S2, no gallops, no murmurs, no rubs ABDOMEN: Soft, nontender. No hepatosplenomegaly, normal bowel sounds, no guarding or rigidity. J-tube is present, with tube feedings, positive flatus, mid abdominal incision is approximated with Dermabond, no drainage. EXTREMITIES: No clubbing, no edema, no cyanosis, 2+ pulses and upper and lower extremities. MUSCULOSKELETAL: Muscle strength and tone normal. SPINE: No scoliosis or deformity SKIN: No rashes CENTRAL NERVOUS SYSTEM: No focal deficits, tone is normal in all 4 extremities. PSYCHIATRIC: Alert and oriented -3. Appropriate affect. Intact judgment and insight. - Labs CBC & Chem 7: 11/10/18 06:38 11/10/18 06:38 Labs: Abnormal Lab Results - Last 24 Hours (Table) 11/09/18 11/09/18 11/09/18 Range/Units 08:37 12:22 17:23 WBC (3.8-10.6) k/uL RBC (3.80-5.40) m/uL Hgb (11.4-16.0) gm/dL Hct (34.0-46.0) % RDW (11.5-15.5) % Plt Count (150-450) k/uL BUN (7-17) mg/dL Glucose (74-99) mg/dL POC Glucose (mg/dL) 105 H 105 H (75-99) mg/dL Crossmatch See Detail 11/09/18 11/10/18 11/10/18 Range/Units 23:09 05:19 06:38 WBC 12.1 H (3.8-10.6) k/uL RBC 3.11 L (3.80-5.40) m/uL Hgb 9.0 L (11.4-16.0) gm/dL Hct 28.1 L (34.0-46.0) % RDW 15.7 H (11.5-15.5) % Plt Count 462 H (150-450) k/uL BUN (7-17) mg/dL Glucose (74-99) mg/dL POC Glucose (mg/dL) 146 H 140 H (75-99) mg/dL Crossmatch 11/10/18 Range/Units 06:38 WBC (3.8-10.6) k/uL RBC (3.80-5.40) m/uL Hgb (11.4-16.0) gm/dL Hct (34.0-46.0) % RDW (11.5-15.5) % Plt Count (150-450) k/uL BUN 38 H (7-17) mg/dL Glucose 105 H (74-99) mg/dL POC Glucose (mg/dL) (75-99) mg/dL Crossmatch Assessment and Plan Assessment: Assessment: #1. Acute hypoxic respiratory failure related to MSSA pneumonia left lower lobe and possibly right lower lobe, and fluid volume overload #2. Large paraesophageal hernia, status post laparotomy and repair, postop day 7 #3. Distal esophageal chronic ulceration, status post transhiatal esophagectomy with jejunostomy tube placement #4. History of chronic atrial fibrillation #5. Essential hypertension #6. History of retinitis pigmentosa #7. Mild chronic obstructive pulmonary disease #8. Make low back pain #9. Postoperative anemia #10. Postoperative atelectasis Plan: The patient was seen and evaluated by Dr. Broderick. Chest x-ray and labs were reviewed. We'll continue the current treatment plan. Continue to work with the incentive spirometer. Increase her activity as tolerated. We'll continue to follow. I, the cosigning physician, performed a history & physical examination of the patient. Lungs sounds with few scattered rhonchi. Maintaining good O2 saturations in the 90s on 4 L/m per nasal cannula. I discussed the assessment and plan of care with my nurse practitioner, Selma Leal. I attest to the above note as dictated by her.
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
[2018-11-10 11:40] LABS: Glucose,Whole Blood 103 mg/dL (75-99)
[2018-11-10] MEDS: LEVOFLOXACIN 500MG-D5W PMX 500 MG in DEXTROSE/WATER 1 100ML.BAG IVPB SCH (12:24)
[2018-11-10 17:15] LABS: Glucose,Whole Blood 92 mg/dL (75-99)
--- NOTE | 2018-11-10 20:34 | PN ---
PROGRESS NOTE DATE OF SERVICE: 11/10/2018. This 83-year-old woman who was admitted after laparotomy, repair of paraesophageal hernia, transhiatal esophagectomy and feeding jejunostomy for large paraesophageal hernia is being closely monitored at this time. No chest pain. No palpitations. No fever. The patient working on incentive spirometry. EXAM: Alert and oriented x2. Pulse 75, blood pressure 150/67, respiration 20, temperature 98 degrees, pulse ox 98% on 4 L. HEENT: Conjunctivae normal. NECK: No jugular venous distention. CARDIOVASCULAR: S1, S2. RESPIRATORY: Breath sounds diminished in the bases. A few scattered rhonchi and crackles. ABDOMEN: Soft, status post surgery. LEGS: No edema. NERVOUS SYSTEM: No focal deficits. LABS: WBC 12.2, hemoglobin is 9, glucose 103. ASSESSMENT: 1. Status post laparotomy, repair of paraesophageal hernia, transhiatal esophagectomy and as well as the feeding jejunostomy. 2. Atrial fibrillation history. 3. Chronic obstructive pulmonary disease. 4. Gastroesophageal reflux disease. 5. History of degenerative joint disease. 6. History of back surgery, degenerative joint disease. 7. Retinitis pigmentosa. 8. Atelectasis. RECOMMENDATIONS AND DISCUSSION: I recommend to continue current medications, monitor and symptomatic treatment. At this time I recommend incentive spirometry. Continue rest of medications. Closely follow with Surgery. Further recommendations to follow. MMODL / IJN: [id number] /
[2018-11-10 23:31] LABS: Glucose,Whole Blood 122 mg/dL (75-99)
--- NOTE | 2018-11-11 00:38 | CONS ---
CONSULTATION REASON FOR CONSULTATION: Hoarseness. HISTORY: This is an 83-year-old white female who on 11/01/2018, underwent laparotomy, repair of paraesophageal hernia, transhiatal esophagectomy, feeding jejunostomy. She was noted to be hoarse postoperatively by the patient and her caregiver. However, her voice worsened somewhat yesterday and is soft and weak. She does have a feeding jejunostomy and was able to have her NG tube removed on 11/07. A barium swallow showed no bleed, although there was narrowing at the anastomosis. The patient did have significant cough, suspected aspiration during the attempted swallowing with contrast. She was placed on clear liquids. She was assessed by the speech and swallowing therapist and we did pass bedside swallow at other than clear liquids but the patient has been still coughing with swallowing. She also had a pneumonia currently which is being treated. PAST MEDICAL HISTORY: Atrial fibrillation. COPD. GERD. Hypertension. Osteoarthritis. Pneumonia. chronic low back pain. PAST SURGICAL HISTORY: Back surgery, hernia repair, hysterectomy, joint replacement with surgery, tonsillectomy, and cardioversion, cataract surgery, rotator cuff surgery, bilateral total knee arthroplasty. SOCIAL HISTORY: Does not smoke or drink alcohol. FAMILY HISTORY: Positive for cancer. HOME MEDICATION: ALLERGIES: DEMEROL, OMEPRAZOLE, OXYCODONE. Current medications: Ipratropium, Zofran, heparin, Pepcid, insulin, Lopressor and potassium, Toradol, Tylenol, Lasix, Dulcolax, Levaquin, Perforomist, Pulmicort. REVIEW OF SYSTEMS: GENERAL: The patient denies fever or chills. RESPIRATORY: The patient denies shortness of breath. CARDIOVASCULAR patient denies chest pain. GASTROINTESTINAL patient denies abdominal pain. INTEGUMENT patient has no rashes. Denies rashes. NEUROLOGIC: Patient has no numbness. MUSCULOSKELETAL: Patient is weak and states that she has overall weakness. PSYCHIATRIC: Patient denies depression. PHYSICAL EXAM: The patient is afebrile. VITAL SIGNS: Stable. 99% oxygen saturation on 4 L. In general, the patient is awake, alert, and oriented x3. She is sitting in her hospital chair in no acute distress. Her voice is weak and soft, although intelligible. There is no stridor. HEENT. HEAD: Normocephalic and atraumatic. Ears bilateral canals clear, mucous membranes unremarkable. Nose shows crusting and dryness from nasal cannula oxygen, but no bleeding points. No lesions. Oral cavity shows no abnormal masses or lesions or erythema. Hypopharynx and larynx exam with flexible laryngoscopy shows a left vocal cord paralysis in the paramedian position. Right vocal cord compensates fairly well, but there is still a an approximate 2 mm posterior glottic chain on vocalization. NECK: Supple without adenopathy or tenderness. There is a low the left lateral neck incision which is healing well with no swelling or erythema. ASSESSMENT: 1. Voice disturbance. 2. Vocal cord paralysis. PLAN: The patient has a left vocal cord paralysis, surgery on the on left neck would have been in the vicinity of the recurrent laryngeal nerve and therefore this would be most likely would be in the area of that recurrent laryngeal nerve. I reviewed with the patient and caregiver the fact that this may be temporary, but also could be permanent. The voicing is not so much an issue presently, but the swallowing is. She will be made n.p.o. and they do understand this as she does have to do an ostomy feeding tube with ongoing need for speech and swallowing therapy. If she has persistent vocal cord paralysis and especially if she can tolerate oral intake without aspiration, then she would need to consider a vocal cord medialization procedure on the left. I reviewed this in detail with them today. It is likely too early to consider this. We will order n.p.o. status and will rely on the tube feeds presently. The patient will be in the hospital for at least a short time, but would generally see the patient in the office as an outpatient postoperatively to reassess the vocal cord status. Speech and swallowing therapy will still need to be seeing her on a regular basis in the hospital for both speech and swallowing. For questions or concerns, please free to contact me. Note that consultation was approximately 45 minutes with over half of this in discussion. MMODL / IJN: [id number] /
--- NOTE | 2018-11-11 00:44 | PCN ---
PROCEDURE NOTE PREOPERATIVE DIAGNOSIS: Hoarseness. POSTOP DIAGNOSIS: Hoarseness with left vocal cord paralysis. PROCEDURE: Flexible laryngoscopy. ANESTHESIA: None. COMPLICATIONS: None. BLOOD LOSS: None. FINDINGS: The left vocal cord paralysis in premium position with fairly good composition of the right vocal cord, but a persistent 2 mm posterior glottic chink on vocalization. DESCRIPTION OF PROCEDURE: The patient was in the hospital bed and flexible laryngoscopy was performed through the right nasal cavity with the at right nasal cavity, nasopharynx, oropharynx, hypopharynx, and larynx examined. Examined with the above findings noted. The patient tolerated procedure well with no complications. MMODL / IJN: [id number] /
[2018-11-11] MEDS: INSULIN ASPART (NovoLOG) 100 UNIT/ML VIAL SQ SCH ×4 (01:37→17:07)
[2018-11-11] MEDS: KETOROLAC 30 MG/ML 1 ML VIAL IVP SCH ×2 (06:35→11:37)
[2018-11-11] MEDS: METOPROLOL TARTRATE 5 MG/5 ML VIAL IVP SCH ×4 (06:35→23:07)
[2018-11-11 06:56] LABS: Glucose,Whole Blood 120 mg/dL (75-99)
[2018-11-11] MEDS: FORMOTEROL FUMARATE 20 MCG/2 ML NEBU INHALATION SCH ×2 (08:24→20:23)
[2018-11-11] MEDS: IPRATROPIUM-ALBUTEROL 3 ML NEB IH SCH ×4 (08:24→20:23)
[2018-11-11] MEDS: BUDESONIDE 1 MG/2 ML NEBU INHALATION SCH ×2 (08:24→20:23)
[2018-11-11] MEDS: FUROSEMIDE 10 MG/ML 2 ML VIAL IV SCH (09:10)
[2018-11-11] MEDS: MULTIVITAMINS, THERA LIQUID 237 ML BOTTLE PEJ/J-Tube SCH (09:11)
[2018-11-11] MEDS: FAMOTIDINE 20 MG/2 ML VIAL IV SCH ×2 (09:11→21:28)
[2018-11-11] MEDS: HEPARIN SODIUM,PORCINE 5,000 UNIT/ML 1 ML VIAL SQ SCH ×3 (09:11→23:07)
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
[2018-11-11] MEDS: LEVOFLOXACIN 500MG-D5W PMX 500 MG in DEXTROSE/WATER 1 100ML.BAG IVPB SCH (11:37)
[2018-11-11 12:15] LABS: Glucose,Whole Blood 113 mg/dL (75-99)
[2018-11-11 17:01] LABS: Glucose,Whole Blood 94 mg/dL (75-99)
--- NOTE | 2018-11-11 17:54 | PN ---
PROGRESS NOTE DATE OF SERVICE: 11/11/2018 This is a patient who we are seeing for a paraesophageal hernia repair, status post laparotomy, repair of esophageal hernia and transhiatal esophagectomy with feeding jejunostomy tube. The patient was seen yesterday. She has developed some hoarseness. Ear, Nose, and Throat doctors were called. On direct laryngoscopy, she had paralysis of the left vocal cord suggesting damage to the left recurrent laryngeal nerve. The patient's voice is very hoarse and she can only whisper at this time. From the pulmonary standpoint, she seems to be doing better. I thought she had both components of fluid overload and a possible pneumonia. We gave her diuretics and antibiotics. She is feeling better from that standpoint. Denies any chest pain or chest discomfort. Not really coughing much anymore. A bit of shortness of breath when she exerts herself. PHYSICAL EXAMINATION: Current vital signs are reviewed. Temperature is 98, heart rate 70, respiratory rate 18, blood pressure 127/82, mean 97. Room air saturation 96%. Appears in no acute distress. HEENT examination is grossly unremarkable. Mucous membranes are moist. NECK: Supple. Full range of motion. No adenopathy or thyromegaly. Neck veins are flat. CARDIOVASCULAR examination reveals regular rhythm rate. Heart rate 70. S1, S2 normal. No S3, S4, murmur. LUNGS: Reveal a few scattered rhonchi. A few basilar crackles are also appreciated. No wheezes. Breath sounds equal bilaterally. ABDOMEN: Soft. Bowel sounds are heard. EXTREMITIES: Intact. No cyanosis, clubbing, or edema. SKIN: Without rash. NEUROLOGIC examination is brief but nonfocal. LABS: Reviewed. There are no labs from today. No recent x-rays to report. The chest x-ray from yesterday shows no significant interval change in the appearance of the chest. Medications are reviewed. ASSESSMENT: 1. Acute hypoxemic respiratory failure secondary to MSSA pneumonia, left lower lobe with possible involvement of the right lower lobe and mild to moderate fluid overload. 2. Large paraesophageal hernia, status post laparotomy with repair including feeding jejunostomy tube and transhiatal esophagectomy. This is postop day #8. 3. Hoarseness/dysphonia, with left vocal cord paralysis, secondary to left recurrent laryngeal nerve injury. 4. Distal esophageal chronic ulceration. 5. History of chronic atrial fibrillation. 6. Essential hypertension. 7. History of retinitis pigmentosa. 8. Mild chronic obstructive pulmonary disease, inactive. 9. Chronic low back pain. 10.Postoperative anemia. 11.Postoperative atelectasis. PLAN: The patient seems to be doing better. We did put her on some antibiotics. This is for the MSSA pneumonia. In addition, she got some additional diuretics. Clinically, she looks well. Her voice is a bit of a concern. Additional recommendations and suggestions are forthcoming. Appreciate the input by the Ear, Nose, and Throat physician. MMODL / IJN: [id number] /
--- NOTE | 2018-11-11 19:39 | PN ---
PROGRESS NOTE I am covering for Dr. Tamez. DATE OF SERVICE: 11/11/2018. This 83-year-old woman was admitted after laparotomy and repair of paraesophageal hernia, is improving significantly. No chest pain. No palpitations. No fever. The patient also had a left vocal cord paralysis and hoarseness of voice also. Aspiration pneumonia suspected. EXAM: Alert and oriented times three. Pulse 80, blood pressure 130/73, respiration 18, temperature 96 degrees, and temperature jennifer. Pulse ox 97% on room air. HEENT: Conjunctivae normal. NECK: No jugular venous distention. CARDIOVASCULAR: S1, S2 muffled. RESPIRATION: Breath sounds diminished in the bases. Scattered rhonchi and crackles. ABDOMEN is soft, nontender. LEGS are no edema. No swelling. CENTRAL NERVOUS SYSTEM: No focal deficits. LABS: WBC 12.2, hemoglobin is 9. Accu-Cheks noted. The most recent chest x-ray which was reviewed by me showed evidence of pneumonia and possible pleural effusion on the left side. ASSESSMENT: 1. Status post laparotomy, repair of paraesophageal hernia transhiatal esophagectomy and as well as feeding jejunostomy. 2. Atrial fibrillation history. 3. Possible atelectasis. 4. Chronic obstructive pulmonary disease. 5. Gastroesophageal reflux disease. 6. 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 7. History of degenerative joint disease. 8. History of back surgery, degenerative joint disease. 9. History of retinitis pigmentosa. 10.Atelectasis. RECOMMENDATIONS AND DISCUSSION: In this 83-year-old woman who presented with multiple medical issues, we will monitor the patient closely continue the current medications, management and symptomatic treatment. Otherwise, the patient is on bronchodilators, incentive spirometry, empiric antibiotics. Closely follow with multiple consultants. Dr. Tamez will follow. MMODL / IJN: [id number] /
[2018-11-11 23:52] LABS: Glucose,Whole Blood 117 mg/dL (75-99)
[2018-11-12] MEDS: INSULIN ASPART (NovoLOG) 100 UNIT/ML VIAL SQ SCH ×4 (00:42→17:25)
[2018-11-12 05:55] LABS: Glucose,Whole Blood 110 mg/dL (75-99)
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
[2018-11-12] MEDS: METOPROLOL TARTRATE 5 MG/5 ML VIAL IVP SCH ×4 (06:31→23:11)
[2018-11-12 07:06] LABS: HCT 29.8 % (34.0-46.0); HGB 9.5 gm/dL (11.4-16.0); Hypochromasia Slight; MCH 28.5 pg (25.0-35.0); MCHC 31.7 g/dL (31.0-37.0); MCV 89.6 fL (80.0-100.0); Mean Platelet Volume 7.8; Platelet Count 510 k/uL (150-450); RBC 3.32 m/uL (3.80-5.40); RDW 15.2 % (11.5-15.5); WBC 12.4 k/uL (3.8-10.6)
[2018-11-12 07:24] LABS: African American GFR (CKD) >90 (>60 ml/min/1.73 sqM); Anion Gap 5 mmol/L; Blood Urea Nitrogen 34 mg/dL (7-17); Calcium 8.7 mg/dL (8.4-10.2); Carbon Dioxide 29 mmol/L (22-30); Chloride 105 mmol/L (98-107); Glucose 108 mg/dL (74-99); Potassium 4.3 mmol/L (3.5-5.1); Sodium 139 mmol/L (137-145)
--- NOTE | 2018-11-12 08:02 | P.PN ---
Subjective Principal diagnosis: continue care The patient is now on surgical stepdown floor after having appropriate swelling study which is nominal. Outpatient versus inpatient rehabilitation for medical debility has been discussed. The patient seems be agreeable for this. Objective - Vital Signs Vital signs: Vital Signs Temp 97.6 F 11/12/18 07:46 Pulse 71 11/12/18 07:46 Resp 16 11/12/18 07:46 BP 130/60 11/12/18 07:46 Pulse Ox 95 11/12/18 07:46 Intake & Output 11/11/18 11/12/18 11/12/18 18:59 06:59 18:59 Intake Total 880 1105 Output Total 1001 2 Balance -121 1103 Weight 107.7 kg Intake: Intake, IV Titration 100 Amount Levofloxacin 500Mg-D5w 100 Pmx 500 mg In Dextrose/ Water 1 100ml.bag @ 100 mls/hr IVPB Q24H [facility] Rx#: [id number] Tube Feeding 780 1105 Output: Urine 1000 Stool 1 2 Other: Voiding Method Toilet # Voids 2 1 # Bowel Movements 1 1 ABP, PAP, CO, CI - Last Documented Arterial Blood Pressure 97/49 - Constitutional General appearance: Present: no acute distress - Neck Neck: Absent: lymphadenopathy - Respiratory Respiratory: bilateral: CTA - Cardiovascular Rhythm: regular Heart sounds: normal: S1, S2 Abnormal Heart Sounds: Absent: S3 Gallop - Gastrointestinal General gastrointestinal: Present: soft. Absent: tenderness - Integumentary Integumentary: Absent: cyanotic - Labs CBC & Chem 7: 11/12/18 06:28 11/12/18 06:28 Labs: Abnormal Lab Results - Last 24 Hours (Table) 11/11/18 11/11/18 11/12/18 Range/Units 12:04 23:51 05:54 WBC (3.8-10.6) k/uL RBC (3.80-5.40) m/uL Hgb (11.4-16.0) gm/dL Hct (34.0-46.0) % Plt Count (150-450) k/uL BUN (7-17) mg/dL Glucose (74-99) mg/dL POC Glucose (mg/dL) 113 H 117 H 110 H (75-99) mg/dL 11/12/18 11/12/18 Range/Units 06:28 06:28 WBC 12.4 H (3.8-10.6) k/uL RBC 3.32 L (3.80-5.40) m/uL Hgb 9.5 L (11.4-16.0) gm/dL Hct 29.8 L (34.0-46.0) % Plt Count 510 H (150-450) k/uL BUN 34 H (7-17) mg/dL Glucose 108 H (74-99) mg/dL POC Glucose (mg/dL) (75-99) mg/dL Assessment and Plan (1) Chest pain Current Visit: No Status: Acute Code(s): R07.9 - CHEST PAIN, UNSPECIFIED SNOMED Code(s): 53058490 (2) Hiatal hernia Current Visit: No Status: Acute Code(s): K44.9 - DIAPHRAGMATIC HERNIA WITHOUT OBSTRUCTION OR GANGRENE SNOMED Code(s): 23957861 Plan: We'll continue to follow from a medical perspective. Probable rehab for debility. See orders otherwise Time with Patient: Less than 30
--- NOTE | 2018-11-12 08:47 | XR ---
EXAMINATION TYPE: XR chest 2V DATE OF EXAM: 11/12/2018 COMPARISON: 11/10/2018 TECHNIQUE: PA and lateral views submitted. HISTORY: Postop FINDINGS: Bilateral consolidation and pleural effusion. Arthropathy shoulders with postsurgical change on the r ight. Calcified lymph nodes or synovial chondromatosis on the right. Diffuse interstitial pattern wit h cardiomegaly. Calcified lymph nodes in the left hilum. No pneumothorax. IMPRESSION: 1. Bilateral infiltrate and pleural effusion correlate for CHF or pneumonia. Findings are stable.
[2018-11-12] MEDS: MULTIVITAMINS, THERA LIQUID 237 ML BOTTLE PEJ/J-Tube SCH (08:52)
[2018-11-12] MEDS: FAMOTIDINE 20 MG/2 ML VIAL IV SCH ×2 (08:53→20:49)
[2018-11-12] MEDS: HEPARIN SODIUM,PORCINE 5,000 UNIT/ML 1 ML VIAL SQ SCH ×3 (08:53→23:12)
[2018-11-12] MEDS: FUROSEMIDE 10 MG/ML 2 ML VIAL IV SCH (08:53)
[2018-11-12] MEDS: FORMOTEROL FUMARATE 20 MCG/2 ML NEBU INHALATION SCH ×2 (08:59→20:55)
[2018-11-12] MEDS: BUDESONIDE 1 MG/2 ML NEBU INHALATION SCH ×2 (08:59→20:55)
[2018-11-12] MEDS: IPRATROPIUM-ALBUTEROL 3 ML NEB IH SCH ×4 (08:59→20:55)
--- NOTE | 2018-11-12 09:47 | US ---
EXAMINATION TYPE: US chest DATE OF EXAM: 11/12/2018 COMPARISON: X-RAY 11/12/2018 CLINICAL HISTORY: left chest, tyrone for thoracentesis. TECHNIQUE: Targeted ultrasound of the posterior lower left hemithorax EXAM MEASUREMENTS: Left Pleural Effusion pocket size: 10.1 cm Left skin surface to fluid distance: 2.8 cm Left side marked for possible thoracentesis outside the dept. Pulmonologists are able to review the images in the patient?s EMR. IMPRESSIONS: Left pleural effusion
[2018-11-12 11:49] LABS: Glucose,Whole Blood 99 mg/dL (75-99)
[2018-11-12] MEDS: LEVOFLOXACIN 500MG-D5W PMX 500 MG in DEXTROSE/WATER 1 100ML.BAG IVPB SCH (12:55)
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
--- NOTE | 2018-11-12 15:24 | XR ---
EXAMINATION TYPE: XR chest 1V portable DATE OF EXAM: 11/12/2018 COMPARISON: 11/12/2018 HISTORY: Postthoracentesis TECHNIQUE: Single frontal view of the chest is obtained. FINDINGS: Postsurgical changes involving the shoulders. Calcification in the right axilla noted. Jonny ateral consolidation and pleural effusion seen. No sizable pneumothorax. IMPRESSION: Bilateral consolidation and pleural effusion. No pneumothorax. There is improvement on t he left.
[2018-11-12 17:14] LABS: Appearance,BF Bloody; Color,BF Red
[2018-11-12 17:15] LABS: Nucleated Cells, Body Fluid 2000 /uL; RBC, Body Fluid 192000 /uL
[2018-11-12 17:17] LABS: Glucose,Whole Blood 84 mg/dL (75-99)
--- NOTE | 2018-11-12 17:25 | P.PN ---
Subjective Progress Note Date: 11/12/18 Principal diagnosis: Paraesophageal hernia, status post post-laparotomy, and repair of her esophageal hernia, and transhiatal esophagectomy, and feeding jejunostomy On 11/09/2017 patient seen on selective care unit in follow-up, today is postop day 7, status post laparotomy, repair of paraesophageal hernia, transhiatal esophagectomy and feeding jejunostomy. We were asked to see the patient again consultation for increased shortness of breath, and possibility of pneumonia, and fluid overload. Sputum culture showed methicillin sensitive Staphylococcus aureus, the patient has been started on Levaquin. She has been getting daily dose of Lasix IV, 20 mg daily, and today's chest x-ray showed bilateral consolidation and pleural effusion, CHF versus diffuse pneumonia. Patient will be given a dose of 40 mg of Lasix today. She is voiding, her weight is stable. She is currently on 4 L of oxygen with a pulse ox of 98%, fever or chills, hemodynamically stable. Respirations are nonlabored. Lung sounds are coarse, with some expiratory wheezes. Remains on breathing treatments, Pulmicort and Perforomist, Leonid. On 11/12/2018 patient is seen in follow-up on selective care unit, she is awake and alert, she sits up in the recliner, she is complaining of increased sierra rtness of breath. Lung sounds are diminished over left lower lobe, and today's chest x-ray shows lateral consolidation and left pleural effusion. Patient is on Levaquin for MSSA pneumonia, room air pulse ox of 91%. Patient still has a hoarse voice, she is nothing by mouth, she's been evaluated by ENT service was found to have a paralyzed left vocal cord. She is receiving tube feedings, and tolerating them well so far. The left thoracentesis with discussed with the patient, and patient is requesting to proceed with a today to relieve her shortness of breath. Objective - Vital Signs Vital signs: Vital Signs Temp 98.1 F 11/12/18 16:00 Pulse 84 11/12/18 16:48 Resp 16 11/12/18 16:00 BP 106/64 11/12/18 16:00 Pulse Ox 95 11/12/18 16:38 Intake & Output 11/11/18 11/12/18 11/12/18 18:59 06:59 18:59 Intake Total 880 1105 880 Output Total 1001 2 1000 Balance -121 1103 -120 Weight 107.7 kg Intake: IV 100 Levofloxacin 500Mg-D5w 100 Pmx 500 mg In Dextrose/ Water 1 100ml.bag @ 100 mls/hr IVPB Q24H [facility] Rx#: [id number] Intake, IV Titration 100 Amount Levofloxacin 500Mg-D5w 100 Pmx 500 mg In Dextrose/ Water 1 100ml.bag @ 100 mls/hr IVPB Q24H [facility] Rx#: [id number] Tube Feeding 780 1105 780 Output: Urine 1000 1000 Stool 1 2 Other: Voiding Method Toilet # Voids 2 1 1 # Bowel Movements 1 1 ABP, PAP, CO, CI - Last Documented Arterial Blood Pressure 97/49 - Exam GENERAL EXAM: Alert, pleasant, 83-year-old white female, on room air, is complaining of moderate dyspnea at rest HEAD: Normocephalic/atraumatic. EYES: Normal reaction of pupils, equal size. Conjunctiva pink, sclera white. NOSE: Clear with pink turbinates. NG tube present to low intermittent suction THROAT: No erythema or exudates. NECK: No masses, no JVD, no thyroid enlargement, no adenopathy. Left neck incision clean dry and intact, well approximated, CHEST: No chest wall deformity. Symmetrical expansion. LUNGS: Equal air entry and lateral, diminished breath sounds, respirations even and nonlabored, no rhonchi or wheezes. Breath Sounds are more diminished over left lower lobe CVS: Regular rate and rhythm, normal S1 and S2, no gallops, no murmurs, no rubs ABDOMEN: Soft, nontender. No hepatosplenomegaly, normal bowel sounds, no guarding or rigidity. J-tube is present, with tube feedings, positive flatus, mid abdominal incision is approximated with Dermabond, no drainage. VICK drain with small amount of serous drainage EXTREMITIES: No clubbing, no edema, no cyanosis, 2+ pulses and upper and lower extremities. MUSCULOSKELETAL: Muscle strength and tone normal. SPINE: No scoliosis or deformity SKIN: No rashes CENTRAL NERVOUS SYSTEM: Alert and oriented -3. No focal deficits, tone is normal in all 4 extremities. PSYCHIATRIC: Alert and oriented -3. Appropriate affect. Intact judgment and insight. - Labs CBC & Chem 7: 11/12/18 06:28 11/12/18 06:28 Labs: Abnormal Lab Results - Last 24 Hours (Table) 11/11/18 11/12/18 11/12/18 Range/Units 23:51 05:54 06:28 WBC 12.4 H (3.8-10.6) k/uL RBC 3.32 L (3.80-5.40) m/uL Hgb 9.5 L (11.4-16.0) gm/dL Hct 29.8 L (34.0-46.0) % Plt Count 510 H (150-450) k/uL BUN (7-17) mg/dL Glucose (74-99) mg/dL POC Glucose (mg/dL) 117 H 110 H (75-99) mg/dL 11/12/18 Range/Units 06:28 WBC (3.8-10.6) k/uL RBC (3.80-5.40) m/uL Hgb (11.4-16.0) gm/dL Hct (34.0-46.0) % Plt Count (150-450) k/uL BUN 34 H (7-17) mg/dL Glucose 108 H (74-99) mg/dL POC Glucose (mg/dL) (75-99) mg/dL Assessment and Plan Plan: Assessment: #1. Acute hypoxic respiratory failure related to MSSA pneumonia left lower lobe and possibly right lower lobe, and fluid volume overload #2. Moderately sized left pleural effusion, likely postsurgical in nature, status post left-sided thoracentesis by Dr. Bach, with removal of 800 mL of old sanguinous fluid, which was sent for analysis #3. Large paraesophageal hernia, status post laparotomy and repair, postop day 10 #4. Distal esophageal chronic ulceration, status post transhiatal esophagectomy with jejunostomy tube placement #5. History of chronic atrial fibrillation #6. Essential hypertension #7. History of retinitis pigmentosa #8. Mild chronic obstructive pulmonary disease #9. Make low back pain #10. Postoperative anemia #11. Postoperative atelectasis #12. Dysphonia, she was found to have left vocal cord paralysis Plan: Patient underwent left thoracentesis with removal of old sanguinous pleural fluid, which is likely postsurgical in nature, this was sent for pleural fluid analysis, and cytology and cultures. She is breathing easier, postprocedure chest x-ray has been reviewed by Dr. Bach, showing bilateral consolidation and decreased left pleural effusion, no pneumothorax. We'll continue with current antibiotics, continue to follow. I performed a history & physical examination of the patient and discussed their management with my nurse practitioner, Cindy Gutierrez. I reviewed the nurse practitioner's note and agree with the documented findings and plan of care. Lung sounds are positive for diffuse wheezes throughout the lung [place]. The findings and the impression was discussed with the patient. I attest to the documentation by the nurse practitioner. Time with Patient: Less than 30
[2018-11-12 17:36] LABS: Mononuclear WBC,Body Fluid 72 %; Polynuclear WBC,Body Fluid 19 %; Total Cells Counted,Body Fluid 100
--- NOTE | 2018-11-12 18:33 | PCN ---
PROCEDURE NOTE Indication Pleural effusion. PREOP DIAGNOSIS: Left sided pleural effusion. POSTOP DIAGNOSIS: Left sided pleural effusion. A time-out was completed verifying correct patient, procedure, site, positioning , and implant (s) or special equipment if applicable. Ultrasound guidance was used and appropriate fluid pocket was identified and marked. Patient was positioned, prepped and draped in usual sterile fashion. Lidocaine was used to anesthetize the area. A Thoracentesis catheter was introduced into the pleural space and fluid was removed. Blood loss was none. A chest x-ray was ordered to evaluate for pneumothorax. Total Fluid Removed 800 mL Color of Fluid Bloody fluid Fluid was sent for appropriate laboratory tests. Patient tolerated the procedure well and there were no complications. No complications. No pneumothorax on the chest x-ray. MMODL / IJN: [id number] /
[2018-11-12] MEDS: KETOROLAC 30 MG/ML 1 ML VIAL IVP PRN (20:39)
[2018-11-12 23:46] LABS: Glucose,Whole Blood 123 mg/dL (75-99)
[2018-11-13] MEDS: INSULIN ASPART (NovoLOG) 100 UNIT/ML VIAL SQ SCH ×5 (00:38→23:29)
[2018-11-13 01:39] LABS: Total Protein, Body Fluid 3040 mg/dL
[2018-11-13 06:01] LABS: Glucose,Whole Blood 98 mg/dL (75-99)
[2018-11-13] MEDS: METOPROLOL TARTRATE 5 MG/5 ML VIAL IVP SCH ×4 (06:49→23:22)
[2018-11-13] MEDS: KETOROLAC 30 MG/ML 1 ML VIAL IVP PRN ×2 (06:49→16:45)
[2018-11-13 08:13] LABS: African American GFR (CKD) >90 (>60 ml/min/1.73 sqM); Anion Gap 5 mmol/L; Blood Urea Nitrogen 35 mg/dL (7-17); Calcium 8.6 mg/dL (8.4-10.2); Carbon Dioxide 28 mmol/L (22-30); Chloride 105 mmol/L (98-107); Glucose 83 mg/dL (74-99); Sodium 138 mmol/L (137-145)
[2018-11-13] MEDS: HEPARIN SODIUM,PORCINE 5,000 UNIT/ML 1 ML VIAL SQ SCH ×3 (08:15→23:22)
[2018-11-13] MEDS: FUROSEMIDE 10 MG/ML 2 ML VIAL IV SCH (08:15)
[2018-11-13] MEDS: FAMOTIDINE 20 MG/2 ML VIAL IV SCH ×2 (08:15→20:05)
[2018-11-13] MEDS: MULTIVITAMINS, THERA LIQUID 237 ML BOTTLE PEJ/J-Tube SCH (08:16)
[2018-11-13 08:22] LABS: Magnesium 2.4 mg/dL (1.6-2.3); Potassium 4.8 mmol/L (3.5-5.1)
[2018-11-13 08:26] LABS: HCT 31.3 % (34.0-46.0); HGB 10.6 gm/dL (11.4-16.0); MCH 29.9 pg (25.0-35.0); MCHC 33.8 g/dL (31.0-37.0); MCV 88.6 fL (80.0-100.0); Mean Platelet Volume 8.3; Platelet Count 560 k/uL (150-450); RBC 3.54 m/uL (3.80-5.40); RDW 14.6 % (11.5-15.5); WBC 13.4 k/uL (3.8-10.6)
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
[2018-11-13] MEDS: FORMOTEROL FUMARATE 20 MCG/2 ML NEBU INHALATION SCH ×2 (09:37→19:48)
[2018-11-13] MEDS: BUDESONIDE 1 MG/2 ML NEBU INHALATION SCH ×2 (09:37→19:37)
[2018-11-13] MEDS: IPRATROPIUM-ALBUTEROL 3 ML NEB IH SCH ×4 (09:37→19:37)
--- NOTE | 2018-11-13 09:53 | XR ---
EXAMINATION TYPE: XR chest 2V DATE OF EXAM: 11/13/2018 COMPARISON: Prior chest x-ray 11/12/2018 HISTORY: Pleural effusion TECHNIQUE: Frontal and lateral views of the chest are obtained. FINDINGS: Bibasilar increased density is present, there is interval improved visualization of the ri ght hemidiaphragm. No pneumothorax. Heart is enlarged, patient is rotated. Interstitium mildly increa sed. Suspect an air-fluid level in the esophagus. There are overlying cardiac leads. Postop changes a re noted to the right shoulder, suspect recurrent chronic rotator cuff tear, possible osteochondromat osis. Prominent lung volumes are compatible with underlying COPD. IMPRESSION: Pleural effusions left greater than right with associated atelectasis versus edema, aydin elate to exclude pneumonia. There may be symmetric remain in volume status, aeration as compared to p rior exam.
[2018-11-13 10:47] VITALS: BMI 37.6
[2018-11-13] MEDS: LEVOFLOXACIN 500MG-D5W PMX 500 MG in DEXTROSE/WATER 1 100ML.BAG IVPB SCH (12:05)
--- NOTE | 2018-11-13 12:19 | FL ---
EXAMINATION TYPE: FL barium swallow w video DATE OF EXAM: 11/13/2018 MODIFIED SWALLOW / DEGLUTITION STUDY CLINICAL HISTORY: Esophagectomy. Vocal cord paralysis. TECHNIQUE: Deglutition study is performed utilizing thin liquid barium, honey and nectar thick liqui d barium and barium thick applesauce. 2 minutes and 34 seconds of fluoroscopy time was utilized. 1323 images were sent. COMPARISON: None. FINDINGS: The oral and pharyngeal phases show satisfactory initiation and propagation with all modali ties tested. Normal mastication is seen with solid modalities tested. When the patient turns her hea d to the right phrenic aspiration is seen with the thin barium consistency. When the patient turns he r head to the left and utilizes the chin tuck position no aspiration or laryngeal penetration is seen . Severe reflux is seen through the gastric pull-through resulting in penetration. No significant pha ryngeal residue was appreciated. IMPRESSION: 1. Cuate aspiration of the thin liquid barium consistency with the patient's head turned to the right . However no penetration or aspiration was seen with any consistency with the patient's head turned t o the left and utilizing the chin tuck position. 2. Severe intermittent reflux through the gastric pull-through that results in laryngeal penetration. 3. Please refer to speech therapist notes for further details if necessary.
[2018-11-13 12:21] LABS: Glucose,Whole Blood 103 mg/dL (75-99)
--- NOTE | 2018-11-13 13:34 | P.PN ---
Subjective Progress Note Date: 11/13/18 Principal diagnosis: Paraesophageal hernia, status post post-laparotomy, and repair of her esophageal hernia, and transhiatal esophagectomy, and feeding jejunostomy On 11/09/2017 patient seen on selective care unit in follow-up, today is postop day 7, status post laparotomy, repair of paraesophageal hernia, transhiatal esophagectomy and feeding jejunostomy. We were asked to see the patient again consultation for increased shortness of breath, and possibility of pneumonia, and fluid overload. Sputum culture showed methicillin sensitive Staphylococcus aureus, the patient has been started on Levaquin. She has been getting daily dose of Lasix IV, 20 mg daily, and today's chest x-ray showed bilateral consolidation and pleural effusion, CHF versus diffuse pneumonia. Patient will be given a dose of 40 mg of Lasix today. She is voiding, her weight is stable. She is currently on 4 L of oxygen with a pulse ox of 98%, fever or chills, hemodynamically stable. Respirations are nonlabored. Lung sounds are coarse, with some expiratory wheezes. Remains on breathing treatments, Pulmicort and Perforomist, Leonid. On 11/12/2018 patient is seen in follow-up on selective care unit, she is awake and alert, she sits up in the recliner, she is complaining of increased sierra rtness of breath. Lung sounds are diminished over left lower lobe, and today's chest x-ray shows lateral consolidation and left pleural effusion. Patient is on Levaquin for MSSA pneumonia, room air pulse ox of 91%. Patient still has a hoarse voice, she is nothing by mouth, she's been evaluated by ENT service was found to have a paralyzed left vocal cord. She is receiving tube feedings, and tolerating them well so far. The left thoracentesis with discussed with the patient, and patient is requesting to proceed with a today to relieve her shortness of breath. On 11/13/2018 patient was seen in follow-up on selective care unit, she is sitting up in the recliner, in no acute distress, she is on room air, she states she is breathing much easier today, room air pulse ox is 94%, no complicated chest pain, lung sounds reveal diminished breath sounds at the bases, no rhonchi, no wheezing, no fever or chills, hemodynamically stable. She underwent left-sided thoracentesis yesterday by Dr. Bach, would removal of 800 mL of old sanguinous drainage, and the pleural fluid cytology is pending right now, and pleural fluid cultures are pending right now. Today's labs have been reviewed, showing white blood cell count of 13.4, immobile globin of 10.6, electrodes are within normal limits, BUN of 35 creatinine 0.60. No acute events overnight, patient is working on the incentive spirometer, he is working with therapy. Pleural fluid analysis revealed exudative fluid. Objective - Vital Signs Vital signs: Vital Signs Temp 98.4 F 11/13/18 11:31 Pulse 76 11/13/18 11:42 Resp 16 11/13/18 11:31 BP 132/68 11/13/18 11:31 Pulse Ox 94 L 11/13/18 11:31 Intake & Output 11/12/18 11/13/18 11/13/18 18:59 06:59 18:59 Intake Total 1240 715 585 Output Total 1000 1 Balance 240 714 585 Weight 105.8 kg 105.8 kg Intake: IV 100 Levofloxacin 500Mg-D5w 100 Pmx 500 mg In Dextrose/ Water 1 100ml.bag @ 100 mls/hr IVPB Q24H [facility] Rx#: [id number] Intake, IV Titration 100 Amount Levofloxacin 500Mg-D5w 100 Pmx 500 mg In Dextrose/ Water 1 100ml.bag @ 100 mls/hr IVPB Q24H [facility] Rx#: [id number] Tube Feeding 1040 715 585 Output: Urine 1000 Stool 1 Other: Voiding Method Toilet # Voids 1 1 1 # Bowel Movements 2 1 ABP, PAP, CO, CI - Last Documented Arterial Blood Pressure 97/49 - Exam GENERAL EXAM: Alert, pleasant, 83-year-old white female, on room air, no complaints of acute distress HEAD: Normocephalic/atraumatic. EYES: Normal reaction of pupils, equal size. Conjunctiva pink, sclera white. NOSE: Clear with pink turbinates. NG tube present to low intermittent suction THROAT: No erythema or exudates. NECK: No masses, no JVD, no thyroid enlargement, no adenopathy. Left neck incision clean dry and intact, well approximated, CHEST: No chest wall deformity. Symmetrical expansion. LUNGS: Equal air entry and lateral, diminished breath sounds, respirations even and nonlabored, no rhonchi or wheezes. ABDOMEN: Soft, nontender. No hepatosplenomegaly, normal bowel sounds, no guarding or rigidity. J-tube is present, with tube feedings, positive flatus, mid abdominal incision is approximated with Dermabond, no drainage. VICK drain wi th small amount of serous drainage EXTREMITIES: No clubbing, no edema, no cyanosis, 2+ pulses and upper and lower extremities. MUSCULOSKELETAL: Muscle strength and tone normal. SPINE: No scoliosis or deformity SKIN: No rashes CENTRAL NERVOUS SYSTEM: Alert and oriented -3. No focal deficits, tone is normal in all 4 extremities. PSYCHIATRIC: Alert and oriented -3. Appropriate affect. Intact judgment and insight. - Labs CBC & Chem 7: 11/13/18 06:40 11/13/18 06:40 Labs: Abnormal Lab Results - Last 24 Hours (Table) 11/12/18 11/13/18 11/13/18 Range/Units 23:45 06:40 06:40 WBC 13.4 H (3.8-10.6) k/uL RBC 3.54 L (3.80-5.40) m/uL Hgb 10.6 L (11.4-16.0) gm/dL Hct 31.3 L (34.0-46.0) % Plt Count 560 H (150-450) k/uL BUN 35 H (7-17) mg/dL POC Glucose (mg/dL) 123 H (75-99) mg/dL Magnesium 2.4 H (1.6-2.3) mg/dL 11/13/18 Range/Units 11:57 WBC (3.8-10.6) k/uL RBC (3.80-5.40) m/uL Hgb (11.4-16.0) gm/dL Hct (34.0-46.0) % Plt Count (150-450) k/uL BUN (7-17) mg/dL POC Glucose (mg/dL) 103 H (75-99) mg/dL Magnesium (1.6-2.3) mg/dL Microbiology - Last 24 Hours (Table) 11/12/18 15:00 Gram Stain - Preliminary Pleural Fluid Body Fluid Culture - Preliminary 11/12/18 15:00 Acid Fast Bacilli Smear - Final Pleural Fluid Acid Fast Bacilli Culture - Preliminary 11/12/18 15:00 Fungal Culture - Preliminary Pleural Fluid Assessment and Plan Plan: Assessment: #1. Acute hypoxic respiratory failure related to MSSA pneumonia left lower lobe and possibly right lower lobe, and fluid volume overload #2. Moderately sized left pleural effusion, likely postsurgical in nature, status post left-sided thoracentesis by Dr. Bach, with removal of 800 mL of old sanguinous fluid, which was sent for analysis #3. Large paraesophageal hernia, status post laparotomy and repair, postop day 10 #4. Distal esophageal chronic ulceration, status post transhiatal esophagectomy with jejunostomy tube placement #5. History of chronic atrial fibrillation #6. Essential hypertension #7. History of retinitis pigmentosa #8. Mild chronic obstructive pulmonary disease #9. Make low back pain #10. Postoperative anemia #11. Postoperative atelectasis #12. Dysphonia, she was found to have left vocal cord paralysis Plan: Patient is breathing easier, she is on room air, pleural fluid cytology and cultures are pending, pleural fluid analysis revealed exudative fluid. Continue current medical treatment, patient is doing well, working with physical therapy. We will follow on as-needed basis, continue current antibiotic coverage, continue IV Lasix. I performed a history & physical examination of the patient and discussed their management with my nurse practitioner, Cindy Gutierrez. I reviewed the nurse practitioner's note and agree with the documented findings and plan of care. Lung sounds are positive for diminished breath sounds. The findings and the impression was discussed with the patient. I attest to the documentation by the nurse practitioner. Time with Patient: Less than 30
--- NOTE | 2018-11-13 16:37 | P.PN ---
Subjective Principal diagnosis: continue care The patient is now on surgical stepdown floor after having appropriate swelling study which is nominal. Outpatient versus inpatient rehabilitation for medical debility has been discussed. Otherwise, the patient is still nothing by mouth due to severe reflux element. Objective - Vital Signs Vital signs: Vital Signs Temp 98.0 F 11/13/18 15:31 Pulse 74 11/13/18 15:31 Resp 16 11/13/18 15:31 BP 117/66 11/13/18 15:31 Pulse Ox 100 11/13/18 15:31 Intake & Output 11/12/18 11/13/18 11/13/18 18:59 06:59 18:59 Intake Total 1240 715 845 Output Total 1000 1 Balance 240 714 845 Weight 105.8 kg 105.8 kg Intake: IV 100 Levofloxacin 500Mg-D5w 100 Pmx 500 mg In Dextrose/ Water 1 100ml.bag @ 100 mls/hr IVPB Q24H [facility] Rx#: [id number] Intake, IV Titration 100 Amount Levofloxacin 500Mg-D5w 100 Pmx 500 mg In Dextrose/ Water 1 100ml.bag @ 100 mls/hr IVPB Q24H [facility] Rx#: [id number] Tube Feeding 1040 715 845 Output: Urine 1000 Stool 1 Other: Voiding Method Toilet # Voids 1 1 1 # Bowel Movements 2 1 ABP, PAP, CO, CI - Last Documented Arterial Blood Pressure 97/49 - Constitutional General appearance: Present: no acute distress - EENT Eyes: Absent: abnormal pupil - Neck Neck: Absent: lymphadenopathy - Respiratory Respiratory: bilateral: CTA - Cardiovascular Rhythm: regular Heart sounds: normal: S1, S2 Abnormal Heart Sounds: Absent: S3 Gallop - Gastrointestinal General gastrointestinal: Present: soft. Absent: tenderness - Neurologic Neurologic: Present: CNII-XII intact - Labs CBC & Chem 7: 11/13/18 06:40 11/13/18 06:40 Labs: Abnormal Lab Results - Last 24 Hours (Table) 11/12/18 11/13/18 11/13/18 Range/Units 23:45 06:40 06:40 WBC 13.4 H (3.8-10.6) k/uL RBC 3.54 L (3.80-5.40) m/uL Hgb 10.6 L (11.4-16.0) gm/dL Hct 31.3 L (34.0-46.0) % Plt Count 560 H (150-450) k/uL BUN 35 H (7-17) mg/dL POC Glucose (mg/dL) 123 H (75-99) mg/dL Magnesium 2.4 H (1.6-2.3) mg/dL 11/13/18 Range/Units 11:57 WBC (3.8-10.6) k/uL RBC (3.80-5.40) m/uL Hgb (11.4-16.0) gm/dL Hct (34.0-46.0) % Plt Count (150-450) k/uL BUN (7-17) mg/dL POC Glucose (mg/dL) 103 H (75-99) mg/dL Magnesium (1.6-2.3) mg/dL Microbiology - Last 24 Hours (Table) 11/12/18 15:00 Gram Stain - Preliminary Pleural Fluid Body Fluid Culture - Preliminary 11/12/18 15:00 Acid Fast Bacilli Smear - Final Pleural Fluid Acid Fast Bacilli Culture - Preliminary 11/12/18 15:00 Fungal Culture - Preliminary Pleural Fluid Assessment and Plan (1) Chest pain Current Visit: No Status: Acute Code(s): R07.9 - CHEST PAIN, UNSPECIFIED SNOMED Code(s): 42566171 (2) Hiatal hernia Current Visit: No Status: Acute Code(s): K44.9 - DIAPHRAGMATIC HERNIA WITHOUT OBSTRUCTION OR GANGRENE SNOMED Code(s): 51783675 Plan: Continue current regimen or treatment. Follow for worsening hoarseness. See orders otherwise. Hopefully we can advance diet soon.
[2018-11-13 17:03] LABS: Glucose,Whole Blood 103 mg/dL (75-99)
[2018-11-13 20:33] LABS: Glucose,Whole Blood 114 mg/dL (75-99)
[2018-11-13 22:54] LABS: Glucose,Whole Blood 147 mg/dL (75-99)
[2018-11-14] MEDS: METOPROLOL TARTRATE 5 MG/5 ML VIAL IVP SCH (05:00)
[2018-11-14 05:21] LABS: Glucose,Whole Blood 100 mg/dL (75-99)
[2018-11-14] MEDS: INSULIN ASPART (NovoLOG) 100 UNIT/ML VIAL SQ SCH ×2 (05:32→12:17)
[2018-11-14 07:06] LABS: HGB 9.7 gm/dL (11.4-16.0); Hypochromasia Slight; MCH 28.5 pg (25.0-35.0); MCHC 31.4 g/dL (31.0-37.0); MCV 90.7 fL (80.0-100.0); Mean Platelet Volume 7.3; Platelet Count 556 k/uL (150-450); RBC 3.42 m/uL (3.80-5.40); RDW 14.5 % (11.5-15.5); WBC 15.2 k/uL (3.8-10.6)
[2018-11-14 07:18] LABS: African American GFR (CKD) >90 (>60 ml/min/1.73 sqM); Anion Gap 4 mmol/L; Blood Urea Nitrogen 33 mg/dL (7-17); Calcium 8.9 mg/dL (8.4-10.2); Carbon Dioxide 29 mmol/L (22-30); Chloride 107 mmol/L (98-107); Glucose 108 mg/dL (74-99); Potassium 4.9 mmol/L (3.5-5.1); Sodium 140 mmol/L (137-145)
--- NOTE | 2018-11-14 08:56 | P.PN ---
Subjective Principal diagnosis: continue care The patient is now on surgical stepdown floor after having appropriate swelling study which is nominal. Outpatient versus inpatient rehabilitation for medical debility has been discussed. Otherwise, the patient is still nothing by mouth due to severe reflux element. Objective - Vital Signs Vital signs: Vital Signs Temp 98.0 F 11/14/18 04:00 Pulse 82 11/14/18 04:00 Resp 18 11/14/18 04:00 BP 140/78 11/14/18 04:00 Pulse Ox 95 11/14/18 04:00 Intake & Output 11/13/18 11/14/18 11/14/18 18:59 06:59 18:59 Intake Total 1300 860 Output Total 1 Balance 1300 859 Weight 105.8 kg 105.4 kg Intake: Tube Feeding 1300 860 Output: Stool 1 Other: # Voids 1 1 # Bowel Movements 1 1 ABP, PAP, CO, CI - Last Documented Arterial Blood Pressure 97/49 - Constitutional General appearance: Present: average body habitus - EENT Eyes: Absent: abnormal pupil - Neck Neck: Absent: lymphadenopathy - Respiratory Respiratory: bilateral: CTA - Cardiovascular Rhythm: regular Heart sounds: normal: S1, S2 Abnormal Heart Sounds: Absent: S3 Gallop - Gastrointestinal General gastrointestinal: Present: soft. Absent: tenderness - Neurologic Neurologic: Absent: focal deficits - Labs CBC & Chem 7: 11/14/18 06:27 11/14/18 06:27 Labs: Abnormal Lab Results - Last 24 Hours (Table) 11/13/18 11/13/18 11/13/18 Range/Units 11:57 16:54 20:30 WBC (3.8-10.6) k/uL RBC (3.80-5.40) m/uL Hgb (11.4-16.0) gm/dL Hct (34.0-46.0) % Plt Count (150-450) k/uL BUN (7-17) mg/dL Glucose (74-99) mg/dL POC Glucose (mg/dL) 103 H 103 H 114 H (75-99) mg/dL 11/13/18 11/14/18 11/14/18 Range/Units 22:52 05:20 06:27 WBC 15.2 H (3.8-10.6) k/uL RBC 3.42 L (3.80-5.40) m/uL Hgb 9.7 L (11.4-16.0) gm/dL Hct 31.0 L (34.0-46.0) % Plt Count 556 H (150-450) k/uL BUN (7-17) mg/dL Glucose (74-99) mg/dL POC Glucose (mg/dL) 147 H 100 H (75-99) mg/dL 11/14/18 Range/Units 06:27 WBC (3.8-10.6) k/uL RBC (3.80-5.40) m/uL Hgb (11.4-16.0) gm/dL Hct (34.0-46.0) % Plt Count (150-450) k/uL BUN 33 H (7-17) mg/dL Glucose 108 H (74-99) mg/dL POC Glucose (mg/dL) (75-99) mg/dL Microbiology - Last 24 Hours (Table) 11/12/18 15:00 Gram Stain - Preliminary Pleural Fluid Body Fluid Culture - Preliminary Assessment and Plan (1) Chest pain Current Visit: No Status: Acute Code(s): R07.9 - CHEST PAIN, UNSPECIFIED SNOMED Code(s): 30915849 (2) Hiatal hernia Current Visit: No Status: Acute Code(s): K44.9 - DIAPHRAGMATIC HERNIA WITHOUT OBSTRUCTION OR GANGRENE SNOMED Code(s): 25548452 Plan: Continue current regimen or treatment. Advance diet per thoracic/vascular surgery. We'll continue to follow. Time with Patient: Less than 30
--- NOTE | 2018-11-14 09:00 | XR ---
EXAMINATION TYPE: XR chest 2V DATE OF EXAM: 11/14/2018 COMPARISON: 11/13/2018 HISTORY: Shortness FINDINGS: There are bilateral pleural effusions with cardiomegaly and bibasilar infiltrate. There is a diffuse interstitial pattern. Postsurgical changes and arthropathy shoulders. Calcified nodule right axilla. Atherosclerotic change aorta. No pneumothorax. There is radiopaque density overlying the midepigastr ic could potentially be related to ovarian swelling. May be within the stomach and GE junction. Aspir ation not excluded. IMPRESSION: 1. Bilateral consolidation and pleural effusion stable. Correlate for pneumonia versus CHF.
[2018-11-14] MEDS: BUDESONIDE 1 MG/2 ML NEBU INHALATION SCH (09:21)
[2018-11-14] MEDS: IPRATROPIUM-ALBUTEROL 3 ML NEB IH SCH ×2 (09:21→12:26)
[2018-11-14] MEDS: FORMOTEROL FUMARATE 20 MCG/2 ML NEBU INHALATION SCH (09:21)
[2018-11-14] MEDS: FAMOTIDINE 20 MG/2 ML VIAL IV SCH (10:09)
[2018-11-14] MEDS: MULTIVITAMINS, THERA LIQUID 237 ML BOTTLE PEJ/J-Tube SCH (10:12)
[2018-11-14] MEDS: HEPARIN SODIUM,PORCINE 5,000 UNIT/ML 1 ML VIAL SQ SCH (10:12)
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
[2018-11-14 11:14] VITALS: RESP 20
[2018-11-14 12:15] LABS: Glucose,Whole Blood 109 mg/dL (75-99)
[2018-11-14] MEDS: LEVOFLOXACIN 500MG-D5W PMX 500 MG in DEXTROSE/WATER 1 100ML.BAG IVPB SCH (12:51)
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
[2018-11-14 13:47] VITALS: BP 155/70; PULSE 90; TEMP 97.9
== END 2018-11-14 15:14 | DRG 326 ==
LOC: 2ORMAIN 06:32 → EDSTATUS 07:30 → 2SICU 13:35 → 3SCARD 11-08 16:53
PROVIDERS: ADMIT Thoracic Surgery (Cardiothoracic Vascular Surgery); ATTEND Thoracic Surgery (Cardiothoracic Vascular Surgery)
PROC: 0BQT0ZZ Repair Diaphragm, Open Approach (ICD-10-PCS; 2018-11-01)
PROC: 0DHA0UZ Insertion of Feeding Device into Jejunum, Open Approach (ICD-10-PCS; 2018-11-01)
PROC: 0D9670Z Drainage of Stomach with Drainage Device, Via Natural or Artificial Opening (ICD-10-PCS; 2018-11-01)
PROC: 0DB30ZZ Excision of Lower Esophagus, Open Approach (ICD-10-PCS; principal; 2018-11-01 07:30)
PROC: 3E0H76Z Introduction of Nutritional Substance into Lower GI, Via Natural or Artificial Opening (ICD-10-PCS; 2018-11-02)
PROC: 0CJS8ZZ Inspection of Larynx, Via Natural or Artificial Opening Endoscopic (ICD-10-PCS; 2018-11-11)
PROC: 0W9B3ZX Drainage of Left Pleural Cavity, Percutaneous Approach, Diagnostic (ICD-10-PCS; 2018-11-12)
DX: K44.9 Diaphragmatic hernia without obstruction or gangrene (principal); J96.01 Acute respiratory failure with hypoxia; J15.211 Pneumonia due to Methicillin susceptible Staphylococcus aureus; J69.0 Pneumonitis due to inhalation of food and vomit; J90 Pleural effusion, not elsewhere classified; J98.11 Atelectasis; J95.89 Other postprocedural complications and disorders of respiratory system, not elsewhere classified; J38.01 Paralysis of vocal cords and larynx, unilateral; I48.0 Paroxysmal atrial fibrillation; E66.01 Morbid (severe) obesity due to excess calories; D64.9 Anemia, unspecified; I11.9 Hypertensive heart disease without heart failure; I07.1 Rheumatic tricuspid insufficiency; J43.9 Emphysema, unspecified; Z68.37 Body mass index [BMI] 37.0-37.9, adult; K22.2 Esophageal obstruction; K22.70 Barrett's esophagus without dysplasia; K66.0 Peritoneal adhesions (postprocedural) (postinfection); K21.9 Gastro-esophageal reflux disease without esophagitis; R49.0 Dysphonia; R49.1 Aphonia; H35.52 Pigmentary retinal dystrophy; M47.9 Spondylosis, unspecified; G89.29 Other chronic pain; M54.5 Low back pain; M19.90 Unspecified osteoarthritis, unspecified site; Z79.82 Long term (current) use of aspirin; Z79.899 Other long term (current) drug therapy; Z71.3 Dietary counseling and surveillance; Z90.710 Acquired absence of both cervix and uterus; Z98.890 Other specified postprocedural states; Z96.653 Presence of artificial knee joint, bilateral; Z87.01 Personal history of pneumonia (recurrent); Z98.42 Cataract extraction status, left eye; Z98.41 Cataract extraction status, right eye; Z96.1 Presence of intraocular lens; Z88.5 Allergy status to narcotic agent; Z88.8 Allergy status to other drugs, medicaments and biological substances; Z91.048 Other nonmedicinal substance allergy status; Y83.6 Removal of other organ (partial) (total) as the cause of abnormal reaction of the patient, or of later complication, without mention of misadventure at the time of the procedure; Z80.0 Family history of malignant neoplasm of digestive organs; Z80.42 Family history of malignant neoplasm of prostate; Z82.0 Family history of epilepsy and other diseases of the nervous system
CPT/HCPCS: 36415; 71045; 71046; 74220; 74230; 76604; 80048; 80053; 82805; 82945; 83036; 83605; 83615; 83735; 83880; 84100; 84157; 85025; 85027; 86850; 86900; 86901; 86920; 87070; 87077; 87102; 87116; 87186; 87205; 87206; 87252; 87496; 87498; 87502; 87529; 87634; 87798; 88108; 88302; 88305; 88307; 89050; 94640; 94760

== ENCOUNTER 2018-12-23 10:43 | Emergency (ER) | payer MEDICARE ==
[2018-12-23] MEDS ORDERED: FAMOTIDINE 20 MG/2 ML VIAL IV STA (11:21)
[2018-12-23] MEDS ORDERED: MAG HYDROX/AL HYDROX/SIMETH 30 ML CUP PO PRN (11:21)
[2018-12-23] MEDS ORDERED: SUCRALFATE 1 GM TAB PO STA (11:21)
[2018-12-23] MEDS ORDERED: ASPIRIN 81 MG PO STA (11:25)
--- NOTE | 2018-12-23 11:26 | ED ---
General Adult HPI - General Chief complaint: Recheck/Abnormal Lab/Rx Stated complaint: Vomiting Time Seen by Provider: 12/23/18 11:10 Source: patient Mode of arrival: wheelchair Limitations: no limitations - History of Present Illness Initial comments: Patient is an 83-year-old female presents with the chief complaint of bilious vomit and cough. The patient says this been going on since her recent surgery. The patient had a hiatal hernia repair, and status post feeding tube removal. Patient states that she has been on numerous medications to control her acid without any real relief. Patient states that she also just found out she has gallstones. Patient cannot identify an inciting incident. There are no aggravating or alleviating factors. Timing is constant. Patient concerned about her cough and thinks she may have pneumonia. She states that she has a productive cough with green and yellow sputum. - Related Data Home Medications Medication Instructions Recorded Confirmed Albuterol Inhaler [Ventolin Hfa 1 puff INHALATION RT-BID 12/23/18 12/23/18 Inhaler] Esomeprazole Magnesium [NexIUM] 20 mg PO DAILY 12/23/18 12/23/18 Ondansetron [Zofran] 4 mg PO Q8H PRN 12/23/18 12/23/18 Previous Rx's Medication Instructions Recorded Aloe Vera 5,000 mg PO DAILY #0 11/14/18 Bisacodyl [Dulcolax] 10 mg RECTAL DAILY PRN supp 11/14/18 Blood Boost Supplement 2 tab PO DAILY #0 11/14/18 Cardioplatinum Supplement 2 tab PO DAILY #0 11/14/18 Cholecalciferol (Vitamin D3) 2,000 unit PO DAILY #0 11/14/18 [Vitamin D3] L.acidoph,Paracasei, B.lactis 1 cap PO DAILY #0 11/14/18 [Probiotic] Mag Hydrox/Al Hydrox/Simeth 30 ml PO TID PRN #1 bottle 12/23/18 [Maalox] Ondansetron Odt [Zofran Odt] 4 mg PO Q8HR PRN #12 tab 12/23/18 Sucralfate [Carafate] 1 gm PO ACHS #28 tablet 12/23/18 Allergies Allergy/AdvReac Type Severity Reaction Status Date / Time meperidine [From Demerol] Allergy Vomiting Verified 12/23/18 11:41 omeprazole Allergy Nausea & Verified 12/23/18 11:41 Vomiting oxycodone Allergy Vomiting Verified 12/23/18 11:41 adhesive tape AdvReac Unknown Rash/Hives Verified 12/23/18 11:41 milk AdvReac Nausea & Verified 12/23/18 11:41 Vomiting Review of Systems ROS Statement: Those systems with pertinent positive or pertinent negative responses have been documented in the HPI. ROS Other: All systems not noted in ROS Statement are negative. 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 History of Any Multi-Drug Resistant Organisms: None Reported Past Surgical History: Back Surgery, Hernia Repair, Hysterectomy, Joint Replacement, Orthopedic Surgery, Tonsillectomy Additional Past Surgical History / Comment(s): MAGAN/cardioversion for paroxysmal atrial fibrillation, low back surgery in 1967 and 1968, abdominal hernia repairs (4 surgeried for a total of 7 abdominal hernias), bilateral cataract removal/lens implants, bilateral feet hammer toes (3 of them), R rotator cuff surgery twice and L rotator cuff surgery once, bilateral total knee arthroplasties. Past Anesthesia/Blood Transfusion Reactions: Previous Problems w/ Anesthesia Additional Past Anesthesia/Blood Transfusion Reaction / Comment(s): Pt has had hypothermia with surgery. Past Psychological History: No Psychological Hx Reported Smoking Status: Never smoker Past Alcohol Use History: None Reported Past Drug Use History: None Reported - Past Family History Father Family Medical History: Cancer Additional Family Medical History / Comment(s): Father had prostate/liver cancer. Mother Family Medical History: Dementia Additional Family Medical History / Comment(s): Mother lived to be 94 yrs old. Brother(s) Family Medical History: Cancer General Exam Limitations: no limitations General appearance: alert, in no apparent distress Head exam: Present: atraumatic, normocephalic Eye exam: Present: normal appearance ENT exam: Present: normal exam Neck exam: Present: normal inspection Respiratory exam: Present: wheezes, decreased breath sounds, other (Patient has a bronchospastic cough). Absent: respiratory distress Cardiovascular Exam: Present: regular rate, normal rhythm GI/Abdominal exam: Present: soft, other (There is a midline incision in the epigastric region. There is a healed ostomy where her feeding tube used to be in the left upper quadrant). Absent: distended, tenderness Rectal exam: Present: deferred Extremities exam: Present: normal inspection Back exam: Present: normal inspection Neurological exam: Present: alert, oriented X3 Psychiatric exam: Present: normal affect, normal mood Skin exam: Present: warm, dry, intact Course Vital Signs 12/23/18 12/23/18 10:50 14:00 Temperature 97.5 F L Pulse Rate 83 79 Respiratory 16 18 Rate Blood Pressure 130/70 135/74 O2 Sat by Pulse 95 95 Oximetry Medical Decision Making - Medical Decision Making Patient presents with a chief complaint bilious vomit and cough. On initial evaluation, vitals are stable, patient is a distress. She'll be evaluated basic labs including cardiac enzymes, chest x-ray, computed tomography scan of the abdomen and pelvis. She was given aspirin and a GI cocktail. EKG performed at 1220 shows sinus rhythm rate of 80 bpm, seconds are within normal limits, no acute signs of ischemia. When compared to previous EKG on 11/12/2018, waveforms are similar. No change. 2:57 PM Lab evaluation of this patient is unremarkable. X-ray does not show any evidence of pneumonia. She does not show any acute process. Reevaluation, patient states that her symptoms are resolved with a GI cocktail. She is rahel erating by mouth intake. At this time, patient was recommended to continue taking the Nexium as she has only been on it for 2 days. I added Maalox and Carafate. Patient was instructed to follow up with primary care in 1-2 days, return to the ED if symptoms worsen or change. - Lab Data Result diagrams: 12/23/18 11:49 12/23/18 11:49 Lab Results 12/23/18 12/23/18 12/23/18 Range/Units 11:49 11:49 11:49 WBC 11.0 H (3.8-10.6) k/uL RBC 4.82 (3.80-5.40) m/uL Hgb 12.8 D (11.4-16.0) gm/dL Hct 41.2 (34.0-46.0) % MCV 85.4 D (80.0-100.0) fL MCH 26.6 (25.0-35.0) pg MCHC 31.2 (31.0-37.0) g/dL RDW 15.2 (11.5-15.5) % Plt Count 368 (150-450) k/uL Neutrophils % 62 % Lymphocytes % 17 % Monocytes % 7 % Eosinophils % 13 % Basophils % 1 % Neutrophils # 6.8 (1.3-7.7) k/uL Lymphocytes # 1.8 (1.0-4.8) k/uL Monocytes # 0.7 (0-1.0) k/uL Eosinophils # 1.4 H (0-0.7) k/uL Basophils # 0.1 (0-0.2) k/uL Hypochromasia Marked Sodium 144 (137-145) mmol/L Potassium 4.6 (3.5-5.1) mmol/L Chloride 108 H (98-107) mmol/L Carbon Dioxide 29 (22-30) mmol/L Anion Gap 7 mmol/L BUN 11 (7-17) mg/dL Creatinine 0.62 (0.52-1.04) mg/dL Est GFR (CKD-EPI)AfAm >90 (>60 ml/min/1.73 sqM) Est GFR (CKD-EPI)NonAf 84 (>60 ml/min/1.73 sqM) Glucose 101 H (74-99) mg/dL Calcium 9.7 (8.4-10.2) mg/dL Total Bilirubin 0.6 (0.2-1.3) mg/dL AST 31 (14-36) U/L ALT 21 (9-52) U/L Alkaline Phosphatase 86 (38-126) U/L Troponin I (0.000-0.034) ng/mL NT-Pro-B Natriuret Pep 199 pg/mL Total Protein 7.4 (6.3-8.2) g/dL Albumin 3.8 (3.5-5.0) g/dL Lipase 20 L (23-300) U/L 12/23/18 Range/Units 11:49 WBC (3.8-10.6) k/uL RBC (3.80-5.40) m/uL Hgb (11.4-16.0) gm/dL Hct (34.0-46.0) % MCV (80.0-100.0) fL MCH (25.0-35.0) pg MCHC (31.0-37.0) g/dL RDW (11.5-15.5) % Plt Count (150-450) k/uL Neutrophils % % Lymphocytes % % Monocytes % % Eosinophils % % Basophils % % Neutrophils # (1.3-7.7) k/uL Lymphocytes # (1.0-4.8) k/uL Monocytes # (0-1.0) k/uL Eosinophils # (0-0.7) k/uL Basophils # (0-0.2) k/uL Hypochromasia Sodium (137-145) mmol/L Potassium (3.5-5.1) mmol/L Chloride (98-107) mmol/L Carbon Dioxide (22-30) mmol/L Anion Gap mmol/L BUN (7-17) mg/dL Creatinine (0.52-1.04) mg/dL Est GFR (CKD-EPI)AfAm (>60 ml/min/1.73 sqM) Est GFR (CKD-EPI)NonAf (>60 ml/min/1.73 sqM) Glucose (74-99) mg/dL Calcium (8.4-10.2) mg/dL Total Bilirubin (0.2-1.3) mg/dL AST (14-36) U/L ALT (9-52) U/L Alkaline Phosphatase (38-126) U/L Troponin I <0.012 (0.000-0.034) ng/mL NT-Pro-B Natriuret Pep pg/mL Total Protein (6.3-8.2) g/dL Albumin (3.5-5.0) g/dL Lipase (23-300) U/L Disposition Clinical Impression: GERD (gastroesophageal reflux disease), Cough Disposition: HOME SELF-CARE Condition: Good Instructions (If sedation given, give patient instructions): Gastroesophageal Reflux Disease (ED) Prescriptions: Sucralfate [Carafate] 1 gm PO ACHS #28 tablet Mag Hydrox/Al Hydrox/Simeth [Maalox] 30 ml PO TID PRN #1 bottle PRN Reason: Heartburn Ondansetron Odt [Zofran Odt] 4 mg PO Q8HR PRN #12 tab PRN Reason: Nausea Is patient prescribed a controlled substance at d/c from ED?: No Referrals: Robbie Tamez MD [Primary Care Provider] - 1-2 days
[2018-12-23] MEDS ORDERED: ONDANSETRON 4 MG/2 ML VIAL IVP STA (11:53)
[2018-12-23 11:58] LABS: Basophils # (A) 0.1 k/uL (0-0.2); Basophils % (A) 1 %; Eosinophils # (A) 1.4 k/uL (0-0.7); Eosinophils % (A) 13 %; HCT 41.2 % (34.0-46.0); Hypochromasia Marked; Lymphocytes # (A) 1.8 k/uL (1.0-4.8); Lymphocytes % (A) 17 %; MCH 26.6 pg (25.0-35.0); MCHC 31.2 g/dL (31.0-37.0); Monocytes # (A) 0.7 k/uL (0-1.0); Monocytes % (A) 7 %; Neutrophils # (A) 6.8 k/uL (1.3-7.7); Neutrophils % (A) 62 %; Platelet Count 368 k/uL (150-450); RBC 4.82 m/uL (3.80-5.40); RDW 15.2 % (11.5-15.5)
[2018-12-23 12:04] LABS: HGB 12.8 gm/dL (11.4-16.0); MCV 85.4 fL (80.0-100.0)
[2018-12-23 12:13] LABS: ALT 21 U/L (9-52); AST 31 U/L (14-36); African American GFR (CKD) >90 (>60 ml/min/1.73 sqM); Albumin 3.8 g/dL (3.5-5.0); Alkaline Phosphatase 86 U/L (38-126); Anion Gap 7 mmol/L; Blood Urea Nitrogen 11 mg/dL (7-17); Calcium 9.7 mg/dL (8.4-10.2); Carbon Dioxide 29 mmol/L (22-30); Chloride 108 mmol/L (98-107); Glucose 101 mg/dL (74-99); Lipase 20 U/L (23-300); Potassium 4.6 mmol/L (3.5-5.1); Sodium 144 mmol/L (137-145); Total Bilirubin 0.6 mg/dL (0.2-1.3); Total Protein 7.4 g/dL (6.3-8.2)
--- NOTE | 2018-12-23 12:46 | XR ---
EXAMINATION TYPE: XR chest 2V DATE OF EXAM: 12/23/2018 HISTORY: Pain. REFERENCE: Previous study dated 11/14/2018. FINDINGS: There are small, bilateral effusions. There is left basilar atelectasis. Heart size upper l imits of normal. IMPRESSION: 1. BORDERLINE CARDIOMEGALY. 2. LEFT BASILAR ATELECTASIS. 3. SMALL, BILATERAL EFFUSIONS. 4. INCIDENTAL NOTE IS MADE OF A PREVIOUS ROTATOR CUFF REPAIR ON THE RIGHT.
--- NOTE | 2018-12-23 14:11 | CT ---
EXAMINATION TYPE: CT abdomen pelvis w con DATE OF EXAM: 12/23/2018 REFERENCE: NONE HISTORY: Pain HISTORY: vomiting bile since hernia surgery end of October CT DLP: 1196.9 mGy Automated exposure control for dose reduction was used. TECHNIQUE: Helical acquisition through the abdomen and pelvis was obtained following the oral ingesti on of without Oral Contrast and following intravenous administration of 100 mL of Isovue 300. The truong a was reformatted in axial, coronal and sagittal projections. FINDINGS: There are bilateral effusions. There is bibasilar airspace disease either representing ate lectasis or pneumonia. There is no pericardial fluid. The heart is upper limits of normal in size. There is an intrathoracic stomach. Within the abdomen, there are gallstones within the gallbladder. 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 The liver is unremarkable. Both adrenal glands are normal. Both kidneys demonstrate function and appear morphologically normal. The pancreas is poorly visualized. There is mild atheromatous calcification of the visualized arterial tree. There is no significant ret roperitoneal, iliac or inguinal adenopathy. Bladder is not distended. The uterus and ovaries are not visualized There is no significant diverticular change and there is no radiographic evidence of diverticulitis. The appendix is not visualized with certainty. Small bowel loops are of normal caliber. There is no free fluid and no free air identified. There is a small umbilical hernia containing fat only. The mouth measures 5.3 mm. There is a gentle levoscoliosis. There is diffuse degenerative disc disease and hypertrophic spondylo sis throughout the spine. There is severe degenerative change within the hips, greater on the right l eft. No bony destructive lesion is seen. IMPRESSION: 1. LARGE INTRATHORACIC STOMACH. 2. BILATERAL EFFUSIONS. 3. BIBASILAR AIRSPACE DISEASE. 4. CHOLELITHIASIS. 5. SMALL UMBILICAL HERNIA CONTAINING FAT ONLY WITH A MOUTH MEASURING 5.3 MM. 6. DEGENERATIVE CHANGES IN THE HIPS AND SPINE.
[2018-12-23 15:18] VITALS: BP 135/63; PULSE 78; RESP 16; TEMP 97.8
== END 2018-12-23 15:17 | disposition home or self-care (01) ==
LOC: EC 10:43
DX: K21.9 Gastro-esophageal reflux disease without esophagitis (principal); R06.2 Wheezing; R05 Cough; K80.20 Calculus of gallbladder without cholecystitis without obstruction; J44.9 Chronic obstructive pulmonary disease, unspecified; M19.90 Unspecified osteoarthritis, unspecified site; Z88.5 Allergy status to narcotic agent; Z88.8 Allergy status to other drugs, medicaments and biological substances; Z91.011 Allergy to milk products; Z79.899 Other long term (current) drug therapy; Z91.048 Other nonmedicinal substance allergy status; Z96.653 Presence of artificial knee joint, bilateral; Z98.890 Other specified postprocedural states; Z80.0 Family history of malignant neoplasm of digestive organs
CPT/HCPCS: 36415; 93005; 83880; 80053; 83690; 84484; 85025; 71046; 74177; 99284; 96374; 96375; J2405; Q9967

== ENCOUNTER → 2019-01-07 | Outpatient (CLI) | payer MEDICARE ==
--- NOTE | 2019-01-08 08:22 | MM ---
Reason for exam: screening (asymptomatic). Physical Findings: A clinical breast exam by your physician is recommended on an annual basis and results should be correlated with mammographic findings. MG 3D Screening Mammo W/Cad Bilateral CC and MLO view(s) were taken. No prior studies available for comparison. There are scattered fibroglandular densities. Benign appearing bilateral calcifications, mostly vascular. No suspicious abnormality. ASSESSMENT: Benign, BI-RAD 2 RECOMMENDATION: Routine screening mammogram of both breasts in 1 year.
== END | disposition home or self-care (01) ==
LOC: RADMAMWWP 10:53
PROVIDERS: ATTEND Family Medicine
DX: Z12.31 Encounter for screening mammogram for malignant neoplasm of breast (principal)
CPT/HCPCS: 77063; 77067